=== PATIENT | female | born 1945 | race Caucasian/White ===

== ENCOUNTER → 2016-10-08 | Outpatient (CLI) | payer MEDICARE, OTHER | END | disposition home or self-care (01) | LOC: LABPAT 12:03 | PROVIDERS: ATTEND Orthopaedic Surgery | DX: Z01.810 Encounter for preprocedural cardiovascular examination (principal) | CPT/HCPCS: 93005 ==

== ENCOUNTER 2016-10-15 10:46 | Day surgery (SDC) | payer MEDICARE, OTHER ==
[2016-10-07 12:29] VITALS: BMI 46.8
--- NOTE | 2016-10-14 17:50 | HP ---
HISTORY AND PHYSICAL DATE OF SURGERY: 10/15/2016 Deisi Salazar is a 71-year-old patient seen with symptomatic left middle finger trigger finger. We discussed options for treatment. She elected to proceed with release A1 kia, left middle finger. Consent was obtained. PAST MEDICAL HISTORY: Hypertension. PAST SURGICAL HISTORY: 1. Hand surgery. 2. Herniorrhaphy. 3. Knee arthroscopy. 4. Lap band surgery. DAILY MEDICATIONS: Lisinopril. ALLERGIES: NONE. SOCIAL HISTORY: Patient denies current tobacco use. PHYSICAL EVALUATION OF THE LEFT HAND: There is tenderness noted at the A1 kia of the left middle finger. There is a nodule at the A1 kia of the left middle finger. There is clicking and catching of that left middle finger. No tenderness along the A1 kia areas of the remaining digits. Distal neurovascular exam is intact. RADIOGRAPHS: Radiographs which were obtained of her left hand revealed some osteoarthritic changes. IMPRESSION: Left middle finger trigger finger. PLAN: Release A1 kia, left middle finger. MMODL / IJN: [id number] /
[~2016-10-15 10:46] MED LIST: DEXAMETHASONE SOD PHOSPHATE 10 MG/ML 1 ML VIAL IV ONE; HYDROmorphone 1 MG/ML 1 ML SYRINGE IVP PRN; LACTATED RINGERS 1,000 ML IV SCH; LIDOCAINE 1% 20 ML VIAL (10MG/ML) FOR IV START INTRADERMA PRN; MIDAZOLAM 2 MG/2 ML VIAL IV PRN; ONDANSETRON 4 MG/2 ML VIAL IVP ONE; SCOPOLAMINE 1.5MG/72HR PATCH TRANSDERM ONE; ceFAZolin 2 GM in SODIUM CHLORIDE 0.9% 100 ML IVPB ONE
[2016-10-15 11:26] VITALS: TEMP 97.6
[2016-10-15] MEDS ORDERED: BUPIVACAINE (PF) 0.25% 30 ML VIAL SQ ONE ×2 (13:05)
[2016-10-15] MEDS ORDERED: fentaNYL (PF) 50 MCG/ML 2 ML AMP ONE (13:15)
[2016-10-15] MEDS ORDERED: MIDAZOLAM 2 MG/2 ML VIAL ONE (13:15)
[2016-10-15] MEDS ORDERED: PROPOFOL 10 MG/ML 20 ML VIAL IV ONE (13:15)
--- NOTE | 2016-10-15 13:44 | P.OP ---
Date of Procedure: 10/15/16 Preoperative Diagnosis: Left middle finger trigger finger Postoperative Diagnosis: Same Procedure(s) Performed: Release A1 kia left middle finger Implants: None Anesthesia: MAC, local Surgeon: Keegan Duran Estimated Blood Loss (ml): 0 Pathology: none sent Condition: stable Disposition: PACU Indications for Procedure: 71-year-old patient seen with a symptomatic left middle finger trigger finger. After treatment options discussed, she elected to proceed with surgical release. Operative Findings: See description of procedure Description of Procedure: Patient was taken to the operative suite. Patient underwent IV sedation by the department of anesthesia. A well-padded tourniquet was placed proximal left upper extremity. Left upper extremity was prepped and draped in the normal sterile orthopedic fashion. The patient received preoperative IV antibiotics. The proposed incision site was infiltrated local analgesic. The tourniquet was insufflated to 250. I made an incision over the area of the A1 kia left middle finger. Dissection was taken down to the A1 kia. I released the A1 kia. The release was completed proximally and distally. There was complete release and good excursion of the tendon with no impingement. The skin margins were proximal nylon suture. Sterile dressings were applied. The tourniquet was released with immediate capillary refill noted of all digits and hand. The patient was then awakened and transferred to recovery in stable condition.
[2016-10-15 14:06] VITALS: BP 128/79; PULSE 67; RESP 18
== END 2016-10-15 14:30 | disposition home or self-care (01) ==
LOC: OR 10:46
PROVIDERS: ATTEND Orthopaedic Surgery
DX: M65.332 Trigger finger, left middle finger (principal); M19.042 Primary osteoarthritis, left hand; I10 Essential (primary) hypertension; N39.3 Stress incontinence (female) (male); Z98.84 Bariatric surgery status; Z79.899 Other long term (current) drug therapy; Z79.82 Long term (current) use of aspirin; Z88.2 Allergy status to sulfonamides
CPT/HCPCS: 26055; J2250; J1100; J0690; J2405; J3010; J2704

== ENCOUNTER → 2016-10-19 | Outpatient (CLI) | payer MEDICARE, OTHER ==
--- NOTE | 2016-10-21 08:43 | MM ---
Reason for exam: screening (asymptomatic). Last mammogram was performed 1 year and 5 months ago. History: Patient is postmenopausal and history of other cancer. Physical Findings: A clinical breast exam by your physician is recommended on an annual basis and results should be correlated with mammographic findings. MG 3D Screening Mammo W/Cad Bilateral CC and MLO view(s) were taken. Prior study comparison: May 17, 2015, bilateral MG screening mammo w CAD. October 20, 2012, bilateral digital screening mammo w/CAD. There are scattered fibroglandular densities. Finding: There are typically benign round, linear calcifications in both breasts. There is no discrete abnormality. Benign axillary lymph nodes bilaterally. ASSESSMENT: Benign, BI-RAD 2 RECOMMENDATION: Routine screening mammogram of both breasts in 1 year.
== END | disposition home or self-care (01) ==
LOC: RADMAMWWP 10:49
PROVIDERS: ATTEND Family Medicine
DX: Z12.31 Encounter for screening mammogram for malignant neoplasm of breast (principal)
CPT/HCPCS: 77063; G0202

== ENCOUNTER → 2017-06-23 | Outpatient (CLI) | payer MEDICARE, OTHER | END | disposition home or self-care (01) | LOC: RADMRIMAIN 09:34 | PROVIDERS: ATTEND Hospitalist | DX: Z53.9 Procedure and treatment not carried out, unspecified reason (principal) ==

== ENCOUNTER 2017-07-22 06:23 | Day surgery (SDC) | payer MEDICARE, OTHER ==
[2017-07-19 13:11] VITALS: BMI 49.2
[~2017-07-22 06:23] MED LIST changes: +ALPRAZolam 0.25 MG TAB PO PRN; +ALPRAZolam 0.5 MG TAB PO PRN; +ASPIRIN 325 MG TAB PO STA; +ATORVASTATIN 80 MG TAB PO STA; -DEXAMETHASONE SOD PHOSPHATE 10 MG/ML 1 ML VIAL IV ONE; -HYDROmorphone 1 MG/ML 1 ML SYRINGE IVP PRN; -LACTATED RINGERS 1,000 ML IV SCH; -LIDOCAINE 1% 20 ML VIAL (10MG/ML) FOR IV START INTRADERMA PRN; -MIDAZOLAM 2 MG/2 ML VIAL IV PRN; +NITROGLYCERIN SL TABS 0.4 MG TAB SUBLINGUAL PRN; -ONDANSETRON 4 MG/2 ML VIAL IVP ONE; -SCOPOLAMINE 1.5MG/72HR PATCH TRANSDERM ONE; +SODIUM CHLORIDE 0.9% 1,000 ML in EMPTY BAG 1 BAG IV ONE; -ceFAZolin 2 GM in SODIUM CHLORIDE 0.9% 100 ML IVPB ONE
[2017-07-22 07:19] VITALS: PULSE 70; TEMP 97.9
[2017-07-22 07:21] LABS: Anisocytosis Slight; Basophils % (A) 1 %; Eosinophils # (A) 0.2 k/uL (0-0.7); Eosinophils % (A) 3 %; HCT 44.8 % (34.0-46.0); HGB 14.2 gm/dL (11.4-16.0); Hypochromasia Slight; Lymphocytes # (A) 1.1 k/uL (1.0-4.8); Lymphocytes % (A) 15 %; MCHC 31.7 g/dL (31.0-37.0); MCV 85.2 fL (80.0-100.0); Mean Platelet Volume 8.4; Monocytes # (A) 0.4 k/uL (0-1.0); Monocytes % (A) 6 %; Neutrophils # (A) 5.3 k/uL (1.3-7.7); Neutrophils % (A) 74 %; Platelet Count 178 k/uL (150-450); RBC 5.26 m/uL (3.80-5.40); RDW 17.2 % (11.5-15.5); WBC 7.2 k/uL (3.8-10.6)
[2017-07-22 07:38] LABS: Calcium 10.1 mg/dL (8.4-10.2); Potassium 4.5 mmol/L (3.5-5.1)
[2017-07-22] MEDS ORDERED: MIDAZOLAM 2 MG/2 ML VIAL IV ONE (07:45)
[2017-07-22] MEDS ORDERED: LIDOCAINE 2% INJ 20 MG/ML SQ ONE (07:48)
[2017-07-22] MEDS: VERAPAMIL SYRINGE (5 MG/10 ML) INTRAARTER ONE ×2 (07:50→08:01)
[2017-07-22] MEDS ORDERED: IOPAMIDOL-370 125ML BTL INJ ONE (07:57)
[2017-07-22] MEDS ORDERED: RX INFO: IV CONTRAST WAS GIVEN 1 EACH MISC MISCELLANE PRN (08:04)
[2017-07-22] MEDS ORDERED: SODIUM CHLORIDE 0.9% 1,000 ML IV SCH (08:15)
--- NOTE | 2017-07-22 09:39 | CC ---
CARDIAC CATHETERIZATION REPORT DATE OF SERVICE: 07/22/2017 PERFORMING PHYSICIAN: Home Solis MD. PROCEDURE PERFORMED: 1. Selective right and left coronary angiogram. 2. Left heart catheterization. INDICATION: This is a pleasant 72-year-old female patient who was admitted recently to the hospital with chest discomfort and was ruled in for acute non ST elevation myocardial infarction. At that point, she was treated medically and discharged home. She was seen in the office and was experiencing intermittent episodes of chest discomfort concerning for angina. In view of that, a heart catheterization was recommended. APPROACH: Right radial artery. COMPLICATION: None. LEVEL OF SEDATION: Moderate with a sedation length of 16 minutes. PROCEDURE DESCRIPTION: After obtaining an informed consent, the patient was brought to cardiac clinical genetics laboratory chief. The right radial artery was cannulated using micropuncture technique, the micropuncture wire passed easily then I placed a 6-Ukrainian sheath in the right radial artery. After that I did selective right and left coronary angiogram using JR4 and JL3.5 catheters. Left heart catheterization was performed using 6-Ukrainian pigtail catheter. The procedure was completed without any complication. SELECTIVE CORONARY ANGIOGRAM: 1. The RCA is a large caliber vessel and it is a dominant vessel. The RCA is angiographically normal. 2. The left main is angiographically normal. It bifurcates into left circumflex, ramus intermedius, and left anterior descending artery. 3. The left circumflex is a large caliber vessel. It is a nondominant vessel. The left circumflex system is angiographically normal. The left circumflex gives rise into 3 obtuse marginal branches, they appear to be angiographically normal. 4. The ramus intermedius is a large caliber vessel and seems to be angiographically normal. 5. The LAD: The proximal LAD is angiographically normal. The mid LAD is normal and gives rise into a medium-sized diagonal branch which seems to be angiographically normal and the LAD distally is angiographically normal as well. HEMODYNAMICS: The left ventricular end-diastolic pressure was 16 mmHg and no gradient was identified across the aortic valve. CONCLUSION: 1. Normal coronary angiogram. 2. Normal left ventricular end-diastolic pressure. POSTPROCEDURE MANAGEMENT: Maximize medical treatment and follow up with the patient. MMODL / IJN: [id number] /
--- NOTE | 2017-07-22 09:45 | LTR ---
July 22, 2017 Solitario Price MD RE: Deisi Salazar Dear Dr. Price: Ms. Deisi Salazar underwent a heart catheterization earlier today at [facility] and that revealed normal coronaries. I want to thank you for allowing me to participate in her care. Please do not hesitate to call if you have any question or concern. Sincerely, JOHANNA / MARJANN: [id number] /
[2017-07-22 15:26] VITALS: BP 120/74; RESP 20
== END 2017-07-22 13:15 | disposition home or self-care (01) ==
LOC: CATHCVL 06:23
PROVIDERS: ATTEND Internal Medicine Interventional Cardiology
DX: I21.4 Non-ST elevation (NSTEMI) myocardial infarction (principal); E78.5 Hyperlipidemia, unspecified; E78.00 Pure hypercholesterolemia, unspecified; I10 Essential (primary) hypertension; Z88.2 Allergy status to sulfonamides; E66.3 Overweight; Z68.43 Body mass index [BMI] 50.0-59.9, adult; Z79.899 Other long term (current) drug therapy
CPT/HCPCS: 93458; 80048; 85025; C1769; C1894; J2001; J2250; J1644; Q9967

== ENCOUNTER → 2017-11-10 | Outpatient (CLI) | payer MEDICARE, OTHER ==
--- NOTE | 2017-11-11 12:42 | MM ---
Reason for exam: screening (asymptomatic). Last mammogram was performed 1 year and 1 month ago. History: Patient is postmenopausal and history of other cancer. Physical Findings: A clinical breast exam by your physician is recommended on an annual basis and results should be correlated with mammographic findings. MG 3D Screening Mammo W/Cad Bilateral CC and MLO view(s) were taken. Prior study comparison: October 19, 2016, bilateral MG 3d screening mammo w/cad. May 17, 2015, bilateral MG screening mammo w CAD. The breast tissue is almost entirely fat. No significant changes when compared with prior studies. ASSESSMENT: Benign, BI-RAD 2 RECOMMENDATION: Routine screening mammogram of both breasts in 1 year.
== END | disposition home or self-care (01) ==
LOC: RADMAMWWP 09:47
PROVIDERS: ATTEND Family Medicine
DX: Z12.31 Encounter for screening mammogram for malignant neoplasm of breast (principal)
CPT/HCPCS: 77063; 77067

== ENCOUNTER → 2018-11-21 | Outpatient (CLI) | payer MEDICARE, OTHER ==
--- NOTE | 2018-11-21 15:20 | US ---
EXAMINATION TYPE: US carotid duplex BILAT DATE OF EXAM: 11/21/2018 COMPARISON: NONE CLINICAL HISTORY: R09.89 Carotid Bruit. MD heard bruit on physical exam per pt. EXAM MEASUREMENTS: RIGHT: Peak Systolic Velocity (PSV) cm/sec ----- Right CCA: 45.8 ----- Right ICA: 81.1 ----- Right ECA: 65.6 ICA/CCA ratio: 1.8 RIGHT: End Diastole cm/sec ----- Right CCA: 16.1 ----- Right ICA: 29.3 ----- Right ECA: 18.3 LEFT: Peak Systolic Velocity (PSV) cm/sec ----- Left CCA: 68.9 ----- Left ICA: 123.4 ----- Left ECA: 74.3 ICA/CCA ratio: 1.8 LEFT: End Diastole cm/sec ----- Left CCA: 24.9 ----- Left ICA: 58.4 ----- Left ECA: 10.6 VERTEBRALS (direction of flow): Right Vertebral: Antegrade Left Vertebral: Antegrade Rhythm: Arrhythmia Very tortuous Right CCA proximally. Very tortuous Left ICA. Increased velocities noted at tortuositie s only. Multiple thyroid nodules found incidentally. IMPRESSION: 1. Mild degree of grayscale atheromatous plaquing with no sonographically evident hemodynamically si gnificant stenosis within either visualized carotid arterial system. 2. Incidentally noted thyroid nodules, partially visualized and partially evaluated with thyroid ultr asound is recommended for further evaluation. Criteria for Assigning % of Stenosis / Diameter reduction (Estimation based on the indirect measurements of the internal carotid artery velocities (ICA PSV). 1. Normal (no stenosis)=ICA PSV < 125 cm/s: ratio < 2.0: ICA EDV<40 cm/s. 2. Less than 50% stenosis=ICA PSV < 125 cm/s: ratio < 2.0: ICA EDV<40 cm/s. 3. 50 to 69% stenosis=ICA PSV of 125 to 230 cm/s: ration 2.0 ? 4.0: ICA EDV 40-100 cm/s. 4. Greater than 70% stenosis to near occlusion= ICA PSV > 230 cm/s: ratio > 4.0: ICA EDV > 100 cm/s. 5. Near occlusion= ICA PSV velocities may be low or undetectable: variable ratio and ICA EDV. 6. Total occlusion=unable to detect flow.
== END | disposition home or self-care (01) ==
LOC: RADUSWWP 14:05
PROVIDERS: ATTEND Family Medicine
DX: I65.23 Occlusion and stenosis of bilateral carotid arteries (principal)
CPT/HCPCS: 93880

== ENCOUNTER → 2018-12-30 | Outpatient (CLI) | payer MEDICARE, OTHER ==
--- NOTE | 2018-12-31 15:58 | US ---
EXAMINATION TYPE: US thyroid st tissue head/neck DATE OF EXAM: 12/30/2018 COMPARISON: Carotid ultrasound 11/21/2018 CLINICAL HISTORY: 73-year-old female E04.1 Thyroid nodule. Thyroid nodule visualized on carotid study TECHNIQUE: Multiple sonographic images of the thyroid gland are obtained. FINDINGS: GLAND SIZE: Right Lobe: 4.2 x 2.0 x 1.9 cm Overall Parenchyma: Diffusely heterogeneous Left Lobe: 3.9 x 1.7 x 1.6 cm Overall Parenchyma: Diffusely heterogeneous Isthmus Thickness: 0.4 cm NODULES RIGHT: Diffuse heterogeneous gland with multiple subcentimeter nodules. # of nodules measured on rig ht: 1 1. 1.8 X 1.3 x 1.4 cm heterogeneous mixed, primarily solid nodule at the mid/lateral pole with well -defined margins; This nodule is wider than tall and shows intranodular vascularity. Prior size: 1.7 cm seen on carotid scan LEFT: Diffuse heterogeneous gland with multiple subcentimeter nodules. # of nodules measured on le ft: 1 1. 1.4 X 1.0 x 1.5 cm isoechoic solid nodule with central cystic component with well-defined margin s; This nodule is wider than tall and shows intranodular vascularity. Prior size: No prior [employer] Work[employer] notes: Bilateral neck scanned, no evidence of lymphadenopathy. Innumerable nodules bilat erally, largest one on each lobe measured. IMPRESSION: 1. Correlate for multinodular goiter. 2. One dominant, primarily solid nodule on each side measuring up to 1.8 cm on the right and 1.5 cm o n the left. Follow-up can be performed.
== END | disposition home or self-care (01) ==
LOC: RADUSWWP 15:16
PROVIDERS: ATTEND Family Medicine
DX: E04.1 Nontoxic single thyroid nodule (principal)
CPT/HCPCS: 76536

== ENCOUNTER → 2019-02-13 | Outpatient (CLI) | payer MEDICARE, OTHER ==
--- NOTE | 2019-02-14 09:12 | MM ---
Reason for exam: screening (asymptomatic). Last mammogram was performed 1 year and 3 months ago. History: Patient is postmenopausal and has history of other cancer at age 33. Physical Findings: A clinical breast exam by your physician is recommended on an annual basis and results should be correlated with mammographic findings. MG 3D Screening Mammo W/Cad Bilateral CC, MLO, and XCCL view(s) were taken. Prior study comparison: November 10, 2017, bilateral MG 3d screening mammo w/cad. October 19, 2016, bilateral MG 3d screening mammo w/cad. There are scattered fibroglandular densities. Benign appearing bilateral calcifications. No suspicious abnormality. No significant changes when compared with prior studies. ASSESSMENT: Benign, BI-RAD 2 RECOMMENDATION: Routine screening mammogram of both breasts in 1 year.
== END | disposition home or self-care (01) ==
LOC: RADMAMWWP 10:36
PROVIDERS: ATTEND Family Medicine
DX: Z12.31 Encounter for screening mammogram for malignant neoplasm of breast (principal)
CPT/HCPCS: 77063; 77067

== ENCOUNTER → 2019-07-17 | Outpatient (CLI) | payer MEDICARE, OTHER ==
--- NOTE | 2019-07-17 15:16 | US ---
EXAMINATION TYPE: US thyroid st tissue head/neck DATE OF EXAM: 07/17/2019 COMPARISON: 12/30/2018 thyroid ultrasound. CLINICAL HISTORY: E04.1 nontoxic single thyroid nodule. GLAND SIZE: Right Lobe: 4.1 x 1.9 x 1.9 cm Overall Parenchyma: heterogenous Left Lobe: 4.7 x 1.1 x 1.8 cm Overall Parenchyma: heterogeneous Isthmus Thickness: 0.2 cm NODULES 1. Right: Diffuse heterogeneous gland with multiple subcentimeter nodules. Number of nodules measured on right 1 1. 1.7 X 1.4 x 1.4 cm heterogeneous mixed, primarily solid nodule at the mid/lateral pole with well-d efined margins; This nodule is wider than tall and shows intranodular vascularity. Prior size: 1.8 x 1.3 1.4cm LEFT: Diffuse heterogeneous gland with multiple subcentimeter nodules. # of nodules measured on left: 1 1. 1.1 x 0.8 x 1.0 cm hypoechoic solid nodule with central cystic component with well-defined margin s; This nodule is wider than tall and shows intranodular vascularity. Prior size: 1.4 X 1.0 x 1.5 ISTHMUS: # of nodules measured in the isthmus: 0 Bilateral neck scanned, no evidence of lymphadenopathy. IMPRESSION: No interval growth of the bilateral thyroid nodules. Nodules appears slightly smaller shanae n 2019 in this multinodular goiter. Background echotexture is diffusely heterogenous.
== END | disposition home or self-care (01) ==
LOC: RADUSWWP 13:59
PROVIDERS: ATTEND Family Medicine
DX: R22.0 Localized swelling, mass and lump, head (principal); E04.2 Nontoxic multinodular goiter
CPT/HCPCS: 76536

== ENCOUNTER → 2020-01-05 | Outpatient (CLI) | payer MEDICARE, OTHER ==
--- NOTE | 2020-01-05 15:16 | US ---
EXAMINATION TYPE: US abdomen limited DATE OF EXAM: 01/05/2020 COMPARISON: NONE CLINICAL HISTORY: K43.9 VENTRAL HERNIA WITHOUT OBSTRUCTION OR GANGRENE. known ventral hernia near epi gastric but patient has pain within RLQ for 3-4 months, no bulging, h/o paniculectomy and radiation t o pelvis 30yrs ago Appearance of calcification at area of patients pain, largest dimension = 0.8cm, no other abnormality noted at area of pain. IMPRESSION: 1. Nonspecific isoechoic area appears to be extraperitoneal with posterior shadowing at the level of the previous incision. No hernia is identified at this level. Consider CT if additional evaluation wo uld be of benefit.
== END | disposition home or self-care (01) ==
LOC: RADUSWWP 13:18
PROVIDERS: ATTEND Family Medicine
DX: K43.9 Ventral hernia without obstruction or gangrene (principal)
CPT/HCPCS: 76705

== ENCOUNTER → 2020-01-18 | Outpatient (CLI) | payer MEDICARE, OTHER ==
--- NOTE | 2020-01-19 05:22 | CT ---
EXAMINATION TYPE: CT abdomen pelvis w con DATE OF EXAM: 01/18/2020 COMPARISON: Correlation ultrasound 01/05/2020 HISTORY: 74-year-old female R19.00 Abdominal mass, pain. TECHNIQUE: Contiguous axial scanning of the abdomen and pelvis following administration of 100 ml Iso lizzy 300 IV contrast. Delayed images through the kidneys and coronal/sagittal reconstructions perform ed. CT DLP: 2348.90 mGycm Automated exposure control for dose reduction was used. FINDINGS: Heart upper limits of normal in size without pericardial effusion. Lower subcarinal calcified lymph n ode. A couple calcified granulomas posterior left lower lobe. No pleural effusion. There is a small hiatal hernia and mild thickening of the distal esophagus. Contrast noted within the distal esophagus. Lap band device is in place. A couple calcified granulomas at the right hepatic dome. Liver enlarged at 20.0 cm. No focal lesion o therwise seen. Portal venous system is patent. No biliary ductal dilatation. Cholecystectomy clips. Indeterminate 2.3 cm nodule left adrenal gland. Right adrenal gland and pancreas appear within normal limits. Numerous calcified granulomas within the main. 2 dominant cysts within the left kidney measuring 5.0 and 4.4 cm. A couple tiny cortical hypodensities in the right kidney too small for accurate CT characterization, likely additional tiny cortical cysts in No dilated small bowel, free fluid, or free air. No mesenteric or retroperitoneal lymphadenopathy. Omental fat-containing ventral upper to mid abdominal wall hernia measuring 7.3 cm wide and 7.1 cm cr aniocaudal. Hernia occurs through a relatively narrow abdominal wall defect measuring 1.8 cm wide. Oral contrast has progressed to the mid transverse colon. There is mild stool burden. Left-sided colo parth diverticulosis greatest in the sigmoid colon. No pericolonic inflammatory change. Bladder is urine distended. Uterus surgically absent. Pelvic phleboliths. Mild pelvic floor relaxatio n. There is a multilocular cystic lesion in the left adnexa measuring 3.7 x 2.7 cm. No abnormal fluid collection in the pelvis or pelvic lymphadenopathy. Bones: Mild degenerative change at both hips and both SI joints. Advanced degenerative disc disease L 2-S1 levels. Hypertrophic facet arthropathy is also present. Nearly grade 2 anterolisthesis at L4-L5. IMPRESSION: 1. OMENTAL FAT-CONTAINING VENTRAL ABDOMINAL WALL HERNIA MEASURING 7.3 X 7.1 CM. HERNIA OCCURS THROUGH A RELATIVELY NARROW ABDOMINAL WALL DEFECT MEASURING 1.8 CM. 2. PRIOR GRANULOMATOUS DISEASE. 3. SMALL HIATAL HERNIA STATUS POST LAP BAND. MILD WALL THICKENING AT THE DISTAL ESOPHAGUS COULD REFLE CT ESOPHAGITIS. THERE IS ORAL CONTRAST ALSO WITHIN THE DISTAL ESOPHAGUS THAT COULD REFLECT ESOPHAGEAL DYSMOTILITY, TIGHT LAP BAND, OR GASTROESOPHAGEAL REFLUX. CORRELATE WITH PATIENT'S SYMPTOMS. 4. INDETERMINATE 2.3 CM LEFT ADRENAL NODULE. 6 MONTH FOLLOW-UP WITH ADRENAL MASS PROTOCOL CT RECOMMEN DED. 5. A 3.7 CM MULTILOCULAR CYSTIC LESION OF THE LEFT OVARY, ABNORMAL IN A POSTMENOPAUSAL FEMALE. PELVIC ULTRASOUND EVALUATION RECOMMENDED FOR FURTHER CHARACTERIZATION AND TO DETERMINE SUBSEQUENT FOLLOW-UP .
== END | disposition home or self-care (01) ==
LOC: RADCTMAIN 14:46
PROVIDERS: ATTEND Family Medicine
DX: K43.9 Ventral hernia without obstruction or gangrene (principal); K22.9 Disease of esophagus, unspecified; N83.202 Unspecified ovarian cyst, left side; K44.9 Diaphragmatic hernia without obstruction or gangrene; Z98.890 Other specified postprocedural states; Z78.0 Asymptomatic menopausal state; R19.00 Intra-abdominal and pelvic swelling, mass and lump, unspecified site
CPT/HCPCS: 82565; 84520; 74177; 36415; Q9967

== ENCOUNTER → 2020-01-24 | Outpatient (CLI) | payer MEDICARE, OTHER ==
--- NOTE | 2020-01-24 17:02 | US ---
EXAMINATION TYPE: US transvaginal DATE OF EXAM: 01/24/2020 COMPARISON: NONE CLINICAL HISTORY: N83.9 lesion of ovary. cysts noted within left adnexa on CT, cervical CA 42 years a go, h/o radiation treatments internally and externally, recent CT states hysterectomy but patient say s she never had uterus removed. TECHNIQUE: TV. Transvaginal sonographic images Date of LMP: 41 years ago EXAM MEASUREMENTS: Uterus: 5.4 x 2.4 x 3.3 cm Endometrial Stripe: 0.4 cm Right Ovary: not seen Left Ovary: not seen 1. Uterus: Anteverted hard to image due to habitus and bowel size 2. Endometrium: wnl 3. Right Ovary: not seen due to atrophy and overlying bowel gas 4. Left Ovary: not seen due to atrophy and bowel gas, unable to discern any cystic area within left adnexa 5. Bilateral Adnexa: bowel gas throughout pelvis 6. Posterior cul-de-sac: wnl IMPRESSION: No solid or cystic pelvic mass. Ovaries not seen.
== END | disposition home or self-care (01) ==
LOC: RADUSWWP 15:35
PROVIDERS: ATTEND Family Medicine
DX: N83.9 Noninflammatory disorder of ovary, fallopian tube and broad ligament, unspecified (principal)
CPT/HCPCS: 76830

== ENCOUNTER → 2020-03-25 | Outpatient (CLI) | payer MEDICARE, OTHER ==
[2020-03-25 22:00] LABS: Basophils # (A) 0.04 X 10*3/uL (0.00-0.10); Basophils % (A) 0.6 %; Eosinophils # (A) 0.19 X 10*3/uL (0.04-0.35); Eosinophils % (A) 2.6 %; HCT 41.7 % (37.2-46.3); HGB 12.3 g/dL (12.0-15.0); Lymphocytes # (A) 1.11 X 10*3/uL (0.90-5.00); Lymphocytes % (A) 15.4 %; MCH 23.7 pg (27.0-32.0); MCHC 29.5 g/dL (32.0-37.0); MCV 80.5 fL (80.0-97.0); Monocytes # (A) 0.57 X 10*3/uL (0.20-1.00); Monocytes % (A) 7.9 %; Neutrophils # (A) 5.26 X 10*3/uL (1.80-7.70); Neutrophils % (A) 73.2 %; Platelet Count 239 X 10*3/uL (140-440); RBC 5.18 X 10*6/uL (4.10-5.20); RDW 16.5 % (11.5-14.5); WBC 7.19 X 10*3/uL (4.50-10.00)
[2020-03-26 03:49] LABS: Ferritin 29.9 ng/mL (10.0-291.0)
[2020-03-26 04:22] LABS: % Iron Saturation 6.99 (12.00-45.00); African American GFR (CKD) 84.8 (60.0-200.0); Albumin 4.3 g/dL (3.80-4.90); Albumin/Globulin Ratio 2.05 (1.60-3.17); Anion Gap 12.7 mmol/L (4.00-12.00); Calcium 9.8 mg/dL (8.7-10.3); Carbon Dioxide 24.3 mmol/L (21.6-31.8); Globulin 2.1 g/dL (1.6-3.3); Non-African American GFR(CKD) 73.1 (60.0-200.0); Potassium 4.1 mmol/L (3.5-5.5); Total Bilirubin 0.5 mg/dL (0.2-1.2); Total Protein 6.4 g/dL (6.2-8.2)
== END | disposition home or self-care (01) ==
LOC: LABWHC1 13:48
PROVIDERS: ATTEND Family Medicine
DX: K62.5 Hemorrhage of anus and rectum (principal)
CPT/HCPCS: 36415; 80053; 82728; 83540; 83550; 85025

== ENCOUNTER → 2020-05-17 | Outpatient (CLI) | payer MEDICARE, OTHER ==
--- NOTE | 2020-05-19 14:04 | US ---
EXAMINATION TYPE: US transvaginal DATE OF EXAM: 05/17/2020 COMPARISON: CT 01/18/20, US 01/24/20 CLINICAL HISTORY: N83.202 Ovarian cyst left side. Patient had "radiation implants" inserted into uter us 40 years ago to treat cancer. States she did NOT have hysterectomy. Implants "burned up" her uteru s and damaged her bladder per pt. TECHNIQUE: Transvaginal (TV). Transvaginal sonographic images were medically necessary to better a ssess the following anatomy: Uterus Date of LMP: Post menopausal EXAM MEASUREMENTS: Uterus: 6.4 x 3.9 x 3.7 cm Endometrial Stripe: 0.3 cm Right Ovary: Not seen cm Left Ovary: Not seen cm 1. Uterus: Anteverted ? fluid collection in cervix = 1.6 x 1.3 x 0.9 cm 2. Endometrium: wnl 3. Right Ovary: Not seen 4. Left Ovary: Not seen, but left sided cystic structure = 2.7 x 2.6 x 2.1 cm with internal echos. 5. Bilateral Adnexa: wnl 6. Posterior cul-de-sac: wnl Sub optimal exam overall. Patient unable to get into usual position for TV exam. (Hips not elevated) IMPRESSION: 1. Small amount fluid may be within the cervical endometrial canal. Endometrial canal is otherwise un remarkable. 2. Examination is limited.
== END | disposition home or self-care (01) ==
LOC: RADUSWWP 13:03
PROVIDERS: ATTEND Family Medicine
DX: N83.202 Unspecified ovarian cyst, left side (principal)
CPT/HCPCS: 76830

== ENCOUNTER 2020-06-05 11:23 | Inpatient (IN) | payer MEDICARE, OTHER ==
--- NOTE | 2020-06-05 12:17 | ED ---
General Adult HPI - General Chief complaint: Recheck/Abnormal Lab/Rx Stated complaint: needs blood infusion Time Seen by Provider: 06/05/20 12:02 Source: patient, RN notes reviewed, old records reviewed Mode of arrival: ambulatory Limitations: no limitations - History of Present Illness Initial comments: 74-year-old female presenting for evaluation of anemia. 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 She's had dark stool over the past several days and believes she must have lost a significant amount of blood over the last 2 months because her hemoglobin has dropped approximately 5 g. She had outpatient lab testing and was sent to the emergency department for transfusion. Patient does report exertional dyspnea and lightheadedness. No chest pain. No abdominal pain. - Related Data Home Medications Medication Instructions Recorded Confirmed Lisinopril-Hctz 20-12.5 mg 1 each PO QAM 04/30/14 04/12/20 [Zestoretic 20-12.5] Omeprazole [PriLOSEC] 1 tab PO DAILY 04/12/20 04/12/20 Allergies Allergy/AdvReac Type Severity Reaction Status Date / Time Sulfa (Sulfonamide Allergy Anaphylaxis Verified 06/05/20 13:20 Antibiotics) Review of Systems ROS Statement: Those systems with pertinent positive or pertinent negative responses have been documented in the HPI. ROS Other: All systems not noted in ROS Statement are negative. Past Medical History Past Medical History: Blood Disorder, Cancer, GERD/Reflux, Hyperlipidemia, Hypertension, Osteoarthritis (OA) Additional Past Medical History / Comment(s): Current SOB, SEVERE IRON DEFICIENCY ANEMIA-iron infusions q 2-3 months, last July 16. Hx CERVICAL CA with radiation in 1979, heart murmur, urinary incontinence, bronchitis X3 in las t yr. History of Any Multi-Drug Resistant Organisms: None Reported Past Surgical History: Bariatric Surgery, Bladder Surgery, Hernia Repair, Joint Replacement, Orthopedic Surgery, Tonsillectomy Additional Past Surgical History / Comment(s): RT SHOULDER ROTATOR CUFF x 2, LAP BAND, RT knee replacement, BLADDER SUSP, EUGENIA carpal tunnel, EUGENIA CATARACT, PANNICULECTOMY, COLONOSCOPY, trigger finger X3-4. Past Anesthesia/Blood Transfusion Reactions: Previous Problems w/ Anesthesia Additional Past Anesthesia/Blood Transfusion Reaction / Comment(s): STATES HAD RESPIRATORY ISSUES/COUGHING POST OP, O2 SAT LOW(HAD BLOCK IN NECK) with PAST ROTATOR CUFF SX, 2ND SHOULDER SURGERY HAD NO PROBLEMS. Past Psychological History: No Psychological Hx Reported Smoking Status: Never smoker Past Alcohol Use History: None Reported Past Drug Use History: None Reported - Past Family History Mother Family Medical History: No Reported History Additional Family Medical History / Comment(s): LUNG CA General Exam Limitations: no limitations General appearance: alert, in no apparent distress Head exam: Present: atraumatic, normocephalic Eye exam: Present: normal appearance, PERRL ENT exam: Present: normal exam Neck exam: Present: normal inspection. Absent: tenderness, meningismus Respiratory exam: Present: normal lung sounds bilaterally. Absent: respiratory distress, wheezes Cardiovascular Exam: Present: regular rate, normal rhythm GI/Abdominal exam: Present: soft. Absent: distended, tenderness, guarding Extremities exam: Present: normal inspection, normal capillary refill. Absent: pedal edema, calf tenderness Neurological exam: Present: alert, oriented X3, CN II-XII intact. Absent: motor sensory deficit Psychiatric exam: Present: normal affect, normal mood Skin exam: Present: warm, dry, intact, pallor. Absent: cyanosis, diaphoretic Course Vital Signs 06/05/20 06/05/20 11:41 12:36 Temperature 98.0 F Pulse Rate 77 70 Respiratory 18 18 Rate Blood Pressure 129/72 116/49 O2 Sat by Pulse 98 100 Oximetry Medical Decision Making - Medical Decision Making 74-year-old female with suspected upper GI bleed and acute anemia. Hemoglobin 7.5 from recent of 12.3. She does have heme positive stool. She started on Protonix, transfused one unit. Her vital signs remained stable while in the emergency department. She will be admitted to Dr. Lucio with general surgery on consult. Hemoglobin will be repeated at 1800 today. - Lab Data Result diagrams: 06/05/20 12:32 06/05/20 12:32 Lab Results 06/05/20 06/05/20 06/05/20 Range/Units 12:32 12:32 12:32 WBC 7.2 (3.8-10.6) k/uL RBC 3.80 (3.80-5.40) m/uL Hgb 7.5 L (11.4-16.0) gm/dL Hct 26.9 L (34.0-46.0) % MCV 70.8 L (80.0-100.0) fL MCH 19.7 L (25.0-35.0) pg MCHC 27.9 L (31.0-37.0) g/dL RDW 16.6 H (11.5-15.5) % Plt Count 293 (150-450) k/uL MPV 8.5 Neutrophils % 73 % Lymphocytes % 15 % Monocytes % 7 % Eosinophils % 2 % Basophils % 1 % Neutrophils # 5.3 (1.3-7.7) k/uL Lymphocytes # 1.1 (1.0-4.8) k/uL Monocytes # 0.5 (0-1.0) k/uL Eosinophils # 0.1 (0-0.7) k/uL Basophils # 0.1 (0-0.2) k/uL Hypochromasia Marked Poikilocytosis Moderate Anisocytosis Slight Microcytosis Moderate PT 10.2 (9.0-12.0) sec INR 0.9 (<1.2) APTT 18.6 L (22.0-30.0) sec Sodium (137-145) mmol/L Potassium (3.5-5.1) mmol/L Chloride (98-107) mmol/L Carbon Dioxide (22-30) mmol/L Anion Gap mmol/L BUN (7-17) mg/dL Creatinine (0.52-1.04) mg/dL Est GFR (CKD-EPI)AfAm (>60 ml/min/1.73 sqM) Est GFR (CKD-EPI)NonAf (>60 ml/min/1.73 sqM) Glucose (74-99) mg/dL Calcium (8.4-10.2) mg/dL Magnesium (1.6-2.3) mg/dL Total Bilirubin (0.2-1.3) mg/dL AST (14-36) U/L ALT (4-34) U/L Alkaline Phosphatase (38-126) U/L Total Protein (6.3-8.2) g/dL Albumin (3.5-5.0) g/dL Stool Occult Blood Positive H (Negative) 06/05/20 Range/Units 12:32 WBC (3.8-10.6) k/uL RBC (3.80-5.40) m/uL Hgb (11.4-16.0) gm/dL Hct (34.0-46.0) % MCV (80.0-100.0) fL MCH (25.0-35.0) pg MCHC (31.0-37.0) g/dL RDW (11.5-15.5) % Plt Count (150-450) k/uL MPV Neutrophils % % Lymphocytes % % Monocytes % % Eosinophils % % Basophils % % Neutrophils # (1.3-7.7) k/uL Lymphocytes # (1.0-4.8) k/uL Monocytes # (0-1.0) k/uL Eosinophils # (0-0.7) k/uL Basophils # (0-0.2) k/uL Hypochromasia Poikilocytosis Anisocytosis Microcytosis PT (9.0-12.0) sec INR (<1.2) APTT (22.0-30.0) sec Sodium 137 (137-145) mmol/L Potassium 4.8 (3.5-5.1) mmol/L Chloride 105 (98-107) mmol/L Carbon Dioxide 25 (22-30) mmol/L Anion Gap 7 mmol/L BUN 24 H (7-17) mg/dL Creatinine 0.79 (0.52-1.04) mg/dL Est GFR (CKD-EPI)AfAm 87 (>60 ml/min/1.73 sqM) Est GFR (CKD-EPI)NonAf 75 (>60 ml/min/1.73 sqM) Glucose 85 (74-99) mg/dL Calcium 9.4 (8.4-10.2) mg/dL Magnesium 2.0 (1.6-2.3) mg/dL Total Bilirubin 0.6 (0.2-1.3) mg/dL AST 28 (14-36) U/L ALT 22 (4-34) U/L Alkaline Phosphatase 115 (38-126) U/L Total Protein 7.0 (6.3-8.2) g/dL Albumin 4.1 (3.5-5.0) g/dL Stool Occult Blood (Negative) Disposition Clinical Impression: Anemia, Upper GI bleed Disposition: ADMITTED IP TO THIS [facility] Condition: Stable Is patient prescribed a controlled substance at d/c from ED?: No Referrals: Nedic,Solitario, MD [Primary Care Provider] - 1-2 days Decision to Admit Reason: Admit from EC Decision Date: 06/05/20 Decision Time: 13:23
[2020-06-05 12:41] LABS: Anisocytosis Slight; Basophils # (A) 0.1 k/uL (0-0.2); Basophils % (A) 1 %; Eosinophils # (A) 0.1 k/uL (0-0.7); Eosinophils % (A) 2 %; HCT 26.9 % (34.0-46.0); HGB 7.5 gm/dL (11.4-16.0); Hypochromasia Marked; Lymphocytes # (A) 1.1 k/uL (1.0-4.8); Lymphocytes % (A) 15 %; MCH 19.7 pg (25.0-35.0); MCHC 27.9 g/dL (31.0-37.0); MCV 70.8 fL (80.0-100.0); Mean Platelet Volume 8.5; Microcytosis Moderate; Monocytes # (A) 0.5 k/uL (0-1.0); Monocytes % (A) 7 %; Neutrophils # (A) 5.3 k/uL (1.3-7.7); Neutrophils % (A) 73 %; Platelet Count 293 k/uL (150-450); Poikilocytosis Moderate; RDW 16.6 % (11.5-15.5); WBC 7.2 k/uL (3.8-10.6)
[2020-06-05 12:50] LABS: Albumin 4.1 g/dL (3.5-5.0); Calcium 9.4 mg/dL (8.4-10.2); Potassium 4.8 mmol/L (3.5-5.1); Total Bilirubin 0.6 mg/dL (0.2-1.3)
[2020-06-05 13:03] LABS: INR 0.9 (<1.2); Prothrombin Time 10.2 sec (9.0-12.0)
[2020-06-05 13:05] LABS: Partial Thromboplastin Time 18.6 sec (22.0-30.0)
[2020-06-05] MEDS ORDERED: PANTOPRAZOLE 40 MG/10 ML VIAL IVP STA (13:15)
[2020-06-05] MEDS ORDERED: NALOXONE 0.4 MG/ML 1 ML VIAL IV PRN (13:20)
[2020-06-05] MEDS: SODIUM CHLORIDE 0.9% 1,000 ML IV SCH (13:52)
[2020-06-05 19:04] LABS: Anisocytosis Slight; Basophils % (A) 1 %; Eosinophils # (A) 0.1 k/uL (0-0.7); Eosinophils % (A) 2 %; HCT 29.1 % (34.0-46.0); HGB 8.6 gm/dL (11.4-16.0); Hypochromasia Marked; Lymphocytes # (A) 1.5 k/uL (1.0-4.8); Lymphocytes % (A) 17 %; MCH 21.3 pg (25.0-35.0); MCHC 29.5 g/dL (31.0-37.0); MCV 72.3 fL (80.0-100.0); Mean Platelet Volume 7.3; Microcytosis Moderate; Monocytes # (A) 0.5 k/uL (0-1.0); Monocytes % (A) 6 %; Neutrophils # (A) 6.2 k/uL (1.3-7.7); Neutrophils % (A) 72 %; Platelet Count 260 k/uL (150-450); Poikilocytosis Moderate; RBC 4.03 m/uL (3.80-5.40); WBC 8.5 k/uL (3.8-10.6)
--- NOTE | 2020-06-05 19:51 | P.HPIM ---
History of Present Illness H&P Date: 06/05/20 Chief Complaint: Weak and tired History of presenting complaint: This is a very pleasant 74-year-old patient of Dr. Price. Chronic stable medical conditions include GERD, hypertension, hyperlipidemia, osteoarthritis. Iron deficiency anemia has received iron infusions. Urinary incontinence. Patient did undergo EGD by Dr. 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 I do not have the formal details on the EGD. Patient had gone to see her space control agent Dr. Pickard who found the patient to be rather pale. Hemoglobin was sent off. Patient has been feeling weak and tired rundown short of breath and decided to come in. Hemoglobin was found to be 7.5. Hemoglobin was 12.3 in March of this year. Unit of blood was ordered in the ER. No abdominal pain. Review of systems: GEN.: Tired EYES: None HEENT: None NECK: None RESPIRATORY: Short of breath CARDIOVASCULAR: None GASTROINTESTINAL: None GENITOURINARY: None MUSCULOSKELETAL: None LYMPHATICS: None HEMATOLOGICAL: None PSYCHIATRY: None NEUROLOGICAL: None Past medical history to include: GERD, hyperlipidemia, hypertension, osteoarthritis, iron deficiency anemia with iron infusions, cervical cancer with radiation in 1979. Urinary incontinence. Bariatric surgery including lap band. Social history: . No history of smoking or alcohol. Physical examination: VITAL SIGNS: 98, 77, 18, 1 29 x 72, 98% room air GENERAL: BMI 46.9, laying in bed, tired. EYES: [Pupils equal. Conjunctiva pale l. HEENT: External appearance of nose and ears normal, oral cavity grossly normal. NECK: JVD not raised; masses not palpable. HEART: First and second heart sounds are normal; no edema. LUNGS: Respiratory rate normal; clear to auscultation. MUSCULAR skeletal: Evidence of OA ABDOMEN: Soft, nontender, liver spleen not palpable, no masses palpable. PSYCH: Alert and oriented x3; mood and affect normal. NEUROLOGICAL: Cranial nerves grossly intact; no facial asymmetry, power and sensation grossly intact. LYMPHATICS: No lymph nodes palpable in the axilla and neck INVESTIGATIONS, reviewed in the clinical context: WBC 7.2 hemoglobin 7.5 platelets 293 potassium 4.8 creatinine 0.9 Stool occult blood positive Influenza type A, diabetic, RSV, COVID 19: Not detected Previous labs: From March 25 2020: Hemoglobin 12.3 Assessment and plan: -Acute on chronic GI bleed in a patient with known upper GI AV malformations. Patient's had recent EGD by Dr. Lorenz out of the [facility] system. Do not have access to the report. Follow H&H -Acute blood loss anemia, symptomatic Patient being transfused 1 unit of blood -Morbid obesity BMI 46.9 Weight loss measures. Patient had a bariatric surgery before. Follow-up with PCP. -GERD Continue PPI -Hyperlipidemia Diet-controlled -Essential hypertension Continue with antihypertensive. Keep a close eye on blood pressure -Primary osteoarthritis Use Tylenol when necessary -Chronic urinary stress incontinence Plan consultation made with Dr. Lorenz. Unit of blood ordered. Repeat CBC in the morning. Consult GI. Care was discussed with the patient. Past Medical History Past Medical History: Blood Disorder, Cancer, GERD/Reflux, Hyperlipidemia, Hypertension, Osteoarthritis (OA) Additional Past Medical History / Comment(s): Current SOB, SEVERE IRON DEFICIENCY ANEMIA-iron infusions q 2-3 months, last July 16. Hx CERVICAL CA with radiation in 1979, heart murmur, urinary incontinence, bronchitis X3 in last yr. History of Any Multi-Drug Resistant Organisms: None Reported Past Surgical History: Bariatric Surgery, Bladder Surgery, Hernia Repair, Joint Replacement, Orthopedic Surgery, Tonsillectomy Additional Past Surgical History / Comment(s): RT SHOULDER ROTATOR CUFF x 2, LAP BAND, RT knee replacement, BLADDER SUSP, EUGENIA carpal tunnel, EUGENIA CATARACT, PANNI CULECTOMY, COLONOSCOPY, trigger finger X3-4. Past Anesthesia/Blood Transfusion Reactions: Previous Problems w/ Anesthesia Additional Past Anesthesia/Blood Transfusion Reaction / Comment(s): STATES HAD RESPIRATORY ISSUES/COUGHING POST OP, O2 SAT LOW(HAD BLOCK IN NECK) with PAST ROTATOR CUFF SX, 2ND SHOULDER SURGERY HAD NO PROBLEMS. Past Psychological History: No Psychological Hx Reported Smoking Status: Never smoker Past Alcohol Use History: None Reported Past Drug Use History: None Reported - Past Family History Mother Family Medical History: No Reported History Additional Family Medical History / Comment(s): LUNG CA Medications and Allergies Home Medications Medication Instructions Recorded Confirmed Type Lisinopril-Hctz 20-12.5 mg 1 tab PO DAILY 04/30/14 06/05/20 History [Zestoretic 20-12.5] Omeprazole [PriLOSEC] 20 mg PO DAILY 04/12/20 06/05/20 History Allergies Allergy/AdvReac Type Severity Reaction Status Date / Time Sulfa (Sulfonamide Allergy Anaphylaxis Verified 06/05/20 13:20 Antibiotics) Physical Exam Vitals: Vital Signs Temp Pulse Resp BP Pulse Ox 06/05/20 18:28 98.1 F 68 18 116/68 99 06/05/20 16:55 98.3 F 68 18 101/21 98 06/05/20 15:56 98.2 F 65 18 106/68 98 06/05/20 15:26 98.3 F 72 18 112/57 100 06/05/20 15:16 98.1 F 69 16 108/54 98 06/05/20 13:56 69 18 118/67 100 06/05/20 12:36 70 18 116/49 100 06/05/20 11:41 98.0 F 77 18 129/72 98 Intake and Output 06/05/20 06/05/20 06/05/20 06:59 14:59 22:59 Intake Total 310 Balance 310 Intake: Blood Product 310 Rc As-1 Unit 310 [id number] Other: Weight 108.862 kg Results CBC & Chem 7: 06/05/20 18:29 06/05/20 12:32 Labs: Abnormal Lab Results - Last 24 Hours (Table) 06/05/20 06/05/20 06/05/20 Range/Units 12:15 12:32 12:32 Hgb 7.5 L (11.4-16.0) gm/dL Hct 26.9 L (34.0-46.0) % MCV 70.8 L (80.0-100.0) fL MCH 19.7 L (25.0-35.0) pg MCHC 27.9 L (31.0-37.0) g/dL RDW 16.6 H (11.5-15.5) % APTT (22.0-30.0) sec BUN (7-17) mg/dL Stool Occult Blood Positive H (Negative) Crossmatch See Detail 06/05/20 06/05/20 06/05/20 Range/Units 12:32 12:32 18:29 Hgb 8.6 L (11.4-16.0) gm/dL Hct 29.1 L (34.0-46.0) % MCV 72.3 L (80.0-100.0) fL MCH 21.3 L (25.0-35.0) pg MCHC 29.5 L (31.0-37.0) g/dL RDW 18.0 H (11.5-15.5) % APTT 18.6 L (22.0-30.0) sec BUN 24 H (7-17) mg/dL Stool Occult Blood (Negative) Crossmatch
[2020-06-05] MEDS: PANTOPRAZOLE 40 MG/10 ML VIAL IVP SCH (19:56)
[2020-06-06] MEDS ORDERED: ACETAMINOPHEN TAB 325 MG TAB PO PRN (00:51)
[2020-06-06] MEDS ORDERED: PANTOPRAZOLE 40 MG TABLET PO SCH (07:30)
[2020-06-06 08:27] LABS: Anisocytosis Slight; Basophils % (A) 1 %; Eosinophils # (A) 0.2 k/uL (0-0.7); Eosinophils % (A) 3 %; HCT 26.1 % (34.0-46.0); HGB 7.6 gm/dL (11.4-16.0); Hypochromasia Marked; Lymphocytes # (A) 0.8 k/uL (1.0-4.8); Lymphocytes % (A) 18 %; MCH 21.1 pg (25.0-35.0); MCHC 29.3 g/dL (31.0-37.0); MCV 72.2 fL (80.0-100.0); Mean Platelet Volume 7.9; Microcytosis Moderate; Monocytes # (A) 0.3 k/uL (0-1.0); Monocytes % (A) 7 %; Neutrophils # (A) 3.3 k/uL (1.3-7.7); Neutrophils % (A) 70 %; Platelet Count 231 k/uL (150-450); Poikilocytosis Moderate; RBC 3.61 m/uL (3.80-5.40); RDW 18.3 % (11.5-15.5); WBC 4.8 k/uL (3.8-10.6)
[2020-06-06] MEDS: PANTOPRAZOLE 40 MG/10 ML VIAL IVP SCH ×2 (08:53→21:13)
[2020-06-06] MEDS: LISINOPRIL-HCTZ 20-12.5 MG 1 EACH TAB PO SCH (10:59)
[2020-06-06] MEDS: SODIUM CHLORIDE 0.9% 1,000 ML IV SCH (11:45)
[2020-06-06] MEDS ORDERED: LIDOCAINE 1% INJ 10MG/ML (20 ML MDV) ONE (13:32)
[2020-06-06] MEDS ORDERED: PROPOFOL 10 MG/ML 20 ML VIAL IV ONE (13:32)
[2020-06-06] MEDS ORDERED: IV FLUID CONTINUATION 1,000 ML IV ONE (13:34)
[2020-06-06] MEDS ORDERED: EPINEPHrine 10 ML SYRINGE (0.1 MG/ML) MISCELLANE ONE (13:50)
--- NOTE | 2020-06-06 13:59 | P.PCN ---
Date of Procedure: 06/06/20 Procedure(s) Performed: BRIEF HISTORY: Patient is a [id number]-year-old, pleasant, white female admitted the hospital with intermittent black tarry stools for the last few months duration. Patient has recurrent iron deficiency anemia and has been on iron infusions for almost 2 years. Previously had an upper endoscopy by Dr. Lorenz about 2 years ago at [facility] and was diagnosed with duodenal AVM. During this hospital admission hemoglobin was 7.6 and dropped to 6 g per dl receiving 1 unit of PRBC transition.. PROCEDURE PERFORMED: Esophagogastroduodenoscopy with injection epinephrine and cautery using a gold probe. PREOPERATIVE DIAGNOSIS: Acute upper GI bleed/anemia. IV sedation per anesthesia. PROCEDURE: After informed consent was obtained, the patient was brought into the endoscopy unit. IV sedation was administered by Anesthesia under continuous monitoring. Initially the Olympus GIF-140 video endoscope was inserted into the mouth. Esophagus intubated without any difficulty. It was gradually advanced into the stomach and duodenum and carefully examined. The bulb and the second part of the duodenum appeared normal. The scope was advanced into the third part of the duodenum there was a 5 mm arterial venous malformation with active oozing identified. At this time I injected epinephrine and 3 mL was injected with good hemostasis. Following this there was cauterized using a gold probe. There was another small AVM noted in the bulb of the duodenum that was also cauterized. The scope at this time was withdrawn to the stomach, adequately insufflated with air, and upon careful examination, mucosa of the antrum, body, cardia and the fundus appeared normal. The scope was then withdrawn into the esophagus. The GE junction was located at 39 cm from the incisors. Small sliding type hiatal hernia noted. The esophagus appeared normal. There were no erosions or ulcerations seen and the patient tolerated the procedure well. IMPRESSION: 1. 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 2. Small hiatal hernia. RECOMMENDATIONS: The findings of this examination were discussed with the patient as well as a family. She'll be on a clear liquid diet today. Monitor CBC daily. Patient started complaining of abdominal pain and abdominal distention post EGD. She will be sent to recovery and abdominal x-rays will be ordered.
[2020-06-06] MEDS ORDERED: ONDANSETRON 4 MG/2 ML VIAL IVP ONE (14:05)
[2020-06-06] MEDS ORDERED: diphenhydrAMINE 50 MG/ML 1 ML VIAL IVP ONE (14:33)
--- NOTE | 2020-06-06 14:41 | CONS ---
CONSULTATION DATE OF DICTATION: June 06, 2020 REASON FOR CONSULTATION: Recurrent iron deficiency anemia/intermittent black tarry stools and anemia. HISTORY OF PRESENT ILLNESS: The patient is a 74-year-old pleasant white female with history of hypertension, hyperlipidemia, who came to the emergency room because of fatigue, weakness, and some shortness of breath. She came to the emergency room and was noted to have a hemoglobin of 7.5 g/dL. Apparently, her hemoglobin in March of this year was 12.3 g/dL. She received a unit of PRBC transfusion and repeat hemoglobin is still 7.5 g/dL. The patient has been having intermittent black tarry stools on and off for the last several months. The last was about 2 days ago. She states that she had recurrent iron deficiency anemia and sees Dr. Howard and receives IV iron infusions almost every 3 months on outpatient basis. She did have multiple endoscopies by Dr. Hyatt and according to the patient, the last one was done by Dr. Hyatt 2 years ago at [facility] and was noted to have a duodenal arteriovenous malformation. Records are not available at the time of this dictation. The patient denies any abdominal pain. No nausea, no vomiting. Last 2 bowel movements were brown in color. PAST MEDICAL HISTORY: Significant for GERD, hypertension, hyperlipidemia, degenerative joint disease, recurrent iron deficiency anemia. PAST SURGICAL HISTORY: Bariatric surgery with lap band done by Dr. Hyatt, history of EGD 2 years ago, colonoscopy was about 4 or 5 years ago, history of bladder surgery, tonsillectomy, right shoulder cuff repair, bilateral cataract surgery, panniculectomy, right knee replacement. MEDICATIONS: Medications at home include lisinopril, Zestoretic, Prilosec. ALLERGIES: SULFA. SOCIAL HISTORY: No smoking. No alcohol use. FAMILY HISTORY: Unremarkable. Mother has lung cancer. REVIEW OF SYSTEMS: CARDIOPULMONARY: No chest pain or shortness of breath. GENITOURINARY: No dysuria or hematuria. MUSCULOSKELETAL: Unremarkable. SKIN: Unremarkable. ENDOCRINE: Unremarkable. PSYCHIATRIC: Unremarkable. NEUROLOGY: Unremarkable. ENT/VISION: Unremarkable. CONSTITUTIONAL: No recent weight loss. No fever, chills, night sweats. HEMATOLOGY: Recurrent iron deficiency anemia. ENDOCRINE: Unremarkable. PHYSICAL EXAMINATION: She appeared comfortable, no apparent distress. Vital signs are stable. Blood pressure is 133/86, pulse rate 71, temperature 98.7. HEENT EXAMINATION: Unremarkable. Conjunctivae pink. Sclerae anicteric. Oral cavity no lesions. NECK: No JVD or lymph node enlargement. CHEST: Was clear to auscultation. HEART: Regular rate and rhythm. ABDOMEN: Was slightly obese, was slightly distended but it was nontender. No organomegaly. EXTREMITIES: No pedal edema. SKIN: No rashes. NEUROLOGIC: Alert and oriented x3. No focal deficits. LABS: WBC 7.2, hemoglobin 7.5, platelets 293. BUN 24, creatinine 0.79. Stool occult blood was positive. Status post one unit of PRBC transfusion and repeat hemoglobin this morning is 7.6. IMPRESSION: 1. This is a lady with history of recurrent iron deficiency anemia, presents to the hospital with fatigue, weakness, and black tarry stools for the last 2 days duration. Her hemoglobin was 7.5 g/dL, status post one unit of PRBC transfusion and this morning hemoglobin is still 7.6 g/dL. She states that she had an upper endoscopy by Dr. Hyatt 2 years ago and was diagnosed with duodenal arteriovenous malformation at [facility]. Records are not available at the time of this dictation. Her last colonoscopy was about 4 years ago and according to her was within normal limits. 2. History of hypertension. 3. History of hyperlipidemia. RECOMMENDATION: We will proceed with EGD today and if negative, will consider a small bowel capsule endoscopy and possible colonoscopy during this hospitalization. In the meantime, monitor CBC daily. Continue with Protonix 40 mg q.12 hours and further recommendations will follow based on the upper endoscopy results. Thank you for this consultation. MMODL / IJN: [id number] /
--- NOTE | 2020-06-06 15:18 | XR ---
EXAMINATION TYPE: XR abdomen acute w cxr DATE OF EXAM: 06/06/2020 COMPARISON: NONE HISTORY: Pain TECHNIQUE: Supine, upright, and left side down lateral decubitus views of the abdomen are obtained. FINDINGS: Stomach is distended and there are dilated small bowel loops. Catheter seen overlying the a bdomen. Hypertrophic change of the spine. Subsegmental changes in left lung most typical of atelectas is. Arthropathy of the shoulders. No pneumothorax. Chronic rib deformity in the right. Air is seen di stally within the rectum. IMPRESSION: 1. Dilated stomach and small bowel with air seen to the level of the rectum may be related to EGD pro cedure or ileus correlate clinically. No diagnostic evidence of free air. If strong clinical suspicio n consider CAT scan.
--- NOTE | 2020-06-06 17:46 | P.GSCN ---
History of Present Illness Consult date: 06/06/20 Reason for Consult: GI bleed History of present illness: 74-year-old female known to our service. Patient with history of intermittent intestinal bleeding. Was found to have a dual for a lesion on prior upper endoscopy. Came in to the hospital with profound weakness. Patient was found to be anemic. She has been given blood. She was having dark stools over the last several days. GI went ahead and did a EGD today. 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 Feels well currently. Did have some pain initially after the upper endoscopy. Patient history includes prior lap band. Review of Systems The patient denies any acute changes in vision or hearing, no dysphagia or odynophagia, no chest pain or shortness of breath, no dysuria or hematuria, no headache, no runny nose, no rectal bleeding, no unexplained weight loss Past Medical History Past Medical History: Blood Disorder, Cancer, GERD/Reflux, Hyperlipidemia, Hypertension, Osteoarthritis (OA) Additional Past Medical History / Comment(s): Current SOB, SEVERE IRON DEFICIENCY ANEMIA-iron infusions q 2-3 months, last July 16. Hx CERVICAL CA with radiation in 1979, heart murmur, urinary incontinence, bronchitis X3 in l ast yr. History of Any Multi-Drug Resistant Organisms: None Reported Past Surgical History: Bariatric Surgery, Bladder Surgery, Hernia Repair, Joint Replacement, Orthopedic Surgery, Tonsillectomy Additional Past Surgical History / Comment(s): RT SHOULDER ROTATOR CUFF x 2, LAP BAND, RT knee replacement, BLADDER SUSP, EUGENIA carpal tunnel, EUGENIA CATARACT, PANNICULECTOMY, COLONOSCOPY, trigger finger X3-4. Past Anesthesia/Blood Transfusion Reactions: Previous Problems w/ Anesthesia Additional Past Anesthesia/Blood Transfusion Reaction / Comm: STATES HAD RESPIRATORY ISSUES/COUGHING POST OP, O2 SAT LOW(HAD BLOCK IN NECK) with PAST ROTATOR CUFF SX, 2ND SHOULDER SURGERY HAD NO PROBLEMS. Past Psychological History: No Psychological Hx Reported Smoking Status: Never smoker Past Alcohol Use History: None Reported Past Drug Use History: None Reported - Past Family History Mother Family Medical History: No Reported History Additional Family Medical History / Comment(s): LUNG CA Medications and Allergies Home Medications Medication Instructions Recorded Confirmed Type Lisinopril-Hctz 20-12.5 mg 1 tab PO DAILY 04/30/14 06/05/20 History [Zestoretic 20-12.5] Omeprazole [PriLOSEC] 20 mg PO DAILY 04/12/20 06/05/20 History Allergies Allergy/AdvReac Type Severity Reaction Status Date / Time Sulfa (Sulfonamide Allergy Anaphylaxis Verified 06/05/20 13:20 Antibiotics) Surgical - Exam Vital Signs Temp Pulse Resp BP Pulse Ox 98.0 F 77 18 129/72 98 06/05/20 11:41 06/05/20 11:41 06/05/20 11:41 06/05/20 11:41 06/05/20 11:41 Physical exam: General: Well-developed, well-nourished HEENT: Normocephalic, sclerae nonicteric Abdomen: Nontender, nondistended Extremities: No edema Neuro: Alert and oriented Results - Labs 06/06/20 06:48 06/05/20 12:32 Abnormal Lab Results - Last 24 Hours (Table) 06/05/20 06/05/20 06/06/20 Range/Units 12:15 18:29 06:48 RBC 3.61 L (3.80-5.40) m/uL Hgb 8.6 L 7.6 L (11.4-16.0) gm/dL Hct 29.1 L 26.1 L (34.0-46.0) % MCV 72.3 L 72.2 L (80.0-100.0) fL MCH 21.3 L 21.1 L (25.0-35.0) pg MCHC 29.5 L 29.3 L (31.0-37.0) g/dL RDW 18.0 H 18.3 H (11.5-15.5) % Lymphocytes # 0.8 L (1.0-4.8) k/uL Crossmatch See Detail Assessment and Plan (1) Upper GI bleed Narrative/Plan: Patient doing well after upper endoscopy with control of duodenal AVM bleeding by GI. Will defer dietary advancement to GI. Continue antiacids. Will follow. Current Visit: Yes Status: Acute Code(s): K92.2 - GASTROINTESTINAL HEMORRHAGE, UNSPECIFIED SNOMED Code(s): 87714646
--- NOTE | 2020-06-06 22:23 | P.PN ---
Progress Note - Text Progress Note Date: 06/06/20 Chief Complaint: Weak and tired History of presenting complaint: This is a very pleasant 74-year-old patient of Dr. Price. Chronic stable medical conditions include GERD, hypertension, hyperlipidemia, osteoarthritis. Iron deficiency anemia has received iron infusions. Urinary incontinence. Patient did undergo EGD by Dr. 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 I do not have the formal details on the EGD. Patient had gone to see her screen printing supervisor Dr. Pickard who found the patient to be rather pale. Hemoglobin was sent off. Patient has been feeling weak and tired rundown short of breath and decided to come in. Hemoglobin was found to be 7.5. Hemoglobin was 12.3 in March of this year. Unit of blood was ordered in the ER. No abdominal pain. Today: saw the patient this morning. EGD pending. Hemoglobin 7.5 after receiving 1 unit of blood. Review of systems: Was done for constitutional, cardiovascular, GI, pulmonary. relevant finding as above Active Medications Acetaminophen (Acetaminophen Tab 325 Mg Tab) 650 mg PO Q6HR PRN PRN Reason: Fever and/ or Pain Last Admin: 06/06/20 01:21 Dose: 650 mg Documented by: Lisinopril/HCTZ (Lisinopril-Hctz 20-12.5 Mg 1 Each Tab) 1 each PO DAILY [facility] Last Admin: 06/06/20 10:59 Dose: 1 each Documented by: Sodium Chloride (Saline 0.9%) 1,000 mls @ 50 mls/hr IV .Q20H [facility] Last Admin: 06/06/20 11:45 Dose: Not Given Documented by: Naloxone HCl (Naloxone 0.4 Mg/Ml 1 Ml Vial) 0.2 mg IV Q2M PRN PRN Reason: Opioid Reversal Pantoprazole Sodium (Pantoprazole 40 Mg/10 Ml Vial) 40 mg IVP BID [facility] Last Admin: 06/06/20 21:13 Dose: 40 mg Documented by: Polyethylene Glycol (Polyethylene Glycol 3350 17 Gm Powd.Pack) 17 gm PO DAILY [facility] Past medical history to include: GERD, hyperlipidemia, hypertension, osteoarthritis, iron deficiency anemia with iron infusions, cervical cancer with radiation in 1979. Urinary incontinence. Bariatric surgery including lap band. Social history: . No history of smoking or alcohol. Physical examination: VITAL SIGNS: 98.7, 71, 19, 127/73, 99% room air GENERAL: Laying in bed, comfortable EYES: [Pupils equal. Conjunctiva pale HEENT: External appearance of nose and ears normal, oral cavity grossly normal. NECK: JVD not raised; masses not palpable. HEART: First and second heart sounds are normal; no edema. LUNGS: Respiratory rate normal; clear to auscultation. MUSCULAR skeletal: Evidence of OA ABDOMEN: Soft, nontender, liver spleen not palpable, no masses palpable. PSYCH: Alert and oriented x3; mood and affect normal. INVESTIGATIONS, reviewed in the clinical context: June 06: Hemoglobin was 8.6 yesterday evening and 7.6 this morning WBC 7.2 hemoglobin 7.5 platelets 293 potassium 4.8 creatinine 0.9 Stool occult blood positive Influenza type A, diabetic, RSV, COVID 19: Not detected Previous labs: From March 25 2020: Hemoglobin 12.3 Assessment and plan: -Acute on chronic GI bleed in a patient with known upper GI AV malformations. EGD today: Bleeding AV malformation in the third part of duodenum that caught injection epinephrine followed by cautery. Using Encore Pro. With good hemostasis -Acute blood loss anemia, symptomatic transfused 1 unit of blood. Patient still symptomatic. We'll order second unit of blood -Morbid obesity BMI 46.9 Weight loss measures. Patient had a bariatric surgery before. Follow-up with PCP. -GERD Continue PPI -Hyperlipidemia Diet-controlled -Essential hypertension Continue with antihypertensive. Keep a close eye on blood pressure -Primary osteoarthritis Use Tylenol when necessary -Chronic urinary stress incontinence Follow postprocedure instructions as per Dr. Opal Dixon. H&H in the morning.
[2020-06-07 05:58] LABS: Anisocytosis Slight; Basophils % (A) 1 %; Eosinophils # (A) 0.1 k/uL (0-0.7); Eosinophils % (A) 2 %; HCT 29.3 % (34.0-46.0); Hypochromasia Marked; Lymphocytes # (A) 1.2 k/uL (1.0-4.8); Lymphocytes % (A) 18 %; MCH 22.6 pg (25.0-35.0); MCHC 30.8 g/dL (31.0-37.0); MCV 73.4 fL (80.0-100.0); Mean Platelet Volume 8.1; Microcytosis Moderate; Monocytes # (A) 0.5 k/uL (0-1.0); Monocytes % (A) 7 %; Neutrophils # (A) 4.7 k/uL (1.3-7.7); Neutrophils % (A) 70 %; Platelet Count 239 k/uL (150-450); Poikilocytosis Moderate; RDW 18.8 % (11.5-15.5); WBC 6.7 k/uL (3.8-10.6)
[2020-06-07] MEDS: SODIUM CHLORIDE 0.9% 1,000 ML IV SCH ×2 (07:49→20:38)
[2020-06-07] MEDS: LISINOPRIL-HCTZ 20-12.5 MG 1 EACH TAB PO SCH (09:10)
[2020-06-07] MEDS: polyethylene glycoL 3350 17 GM POWD.PACK PO SCH (09:11)
[2020-06-07] MEDS: PANTOPRAZOLE 40 MG/10 ML VIAL IVP SCH ×2 (09:39→20:38)
--- NOTE | 2020-06-07 10:28 | P.PN ---
Subjective Progress Note Date: 06/07/20 Principal diagnosis: ugib Patient doing well today. She had loose yellowish stools today. No rectal bleeding. Hemoglobin improved. No pain. Objective - Vital Signs Vital signs: Vital Signs Temp 98.1 F 06/07/20 07:16 Pulse 62 06/07/20 07:16 Resp 20 06/07/20 07:16 BP 102/55 06/07/20 07:16 Pulse Ox 94 L 06/07/20 07:16 Intake & Output 06/06/20 06/07/20 06/07/20 18:59 06:59 18:59 Intake Total 1400 310 Balance 1400 310 Intake: IV 800 Intake, IV Titration 600 Amount Sodium Chloride 0.9% 1, 600 000 ml @ 50 mls/hr IV . Q20H [facility] Rx#:[id number] Blood Product 0 310 Rc As-1 Unit 0 310 [id number] Other: Voiding Method Toilet Toilet Toilet # Voids 2 - Exam Abdomen: Soft, nontender, nondistended - Labs CBC & Chem 7: 06/07/20 05:34 06/05/20 12:32 Labs: Abnormal Lab Results - Last 24 Hours (Table) 06/05/20 06/07/20 Range/Units 12:15 05:34 Hgb 9.0 L (11.4-16.0) gm/dL Hct 29.3 L (34.0-46.0) % MCV 73.4 L (80.0-100.0) fL MCH 22.6 L (25.0-35.0) pg MCHC 30.8 L (31.0-37.0) g/dL RDW 18.8 H (11.5-15.5) % Crossmatch See Detail Assessment and Plan (1) Upper GI bleed Narrative/Plan: Patient doing better today. No rectal bleeding currently. Apparently there is consideration for colonoscopy during this hospitalization. If colonoscopy not performed I'm comfortable with diet being advanced at this point. No surgical intervention planned. We'll sign off. Current Visit: Yes Status: Acute Code(s): K92.2 - GASTROINTESTINAL HEMORRHAGE, UNSPECIFIED SNOMED Code(s): 72719868
--- NOTE | 2020-06-07 15:38 | P.PN ---
Subjective Progress Note Date: 06/07/20 Principal diagnosis: Recurrent iron deficiency anemia with intermittent black tarry stools Assessment 74-year-old pleasant white female who was admitted to the hospital with intermittent black tarry stools for last 2 months duration as well as iron deficiency anemia. She has been getting iron infusions for most 2 years recently had an upper endoscopy by Dr. Mccoy about 2 months [facility] was diagnosed with a duodenal AVM. Yesterday she underwent an upper endoscopy which revealed an actively bleeding duodenal arteriovenous malformation in the third part of the duodenum status post injection epinephrine followed by cautery using a cold probe with good hemostasis and a small hiatal hernia. Today's hemoglobin is stable at 9.0, initially she had no reports of any GI bleed however in the late morning she had a bowel movement which she reports was mixed with bright red blood. She is denying any abdominal pain, nausea, or vomiting. Objective - Vital Signs Vital signs: Vital Signs Temp 98.1 F 06/07/20 07:16 Pulse 62 06/07/20 07:16 Resp 20 06/07/20 07:16 BP 102/55 06/07/20 07:16 Pulse Ox 94 L 06/07/20 07:16 Intake & Output 06/06/20 06/07/20 06/07/20 18:59 06:59 18:59 Intake Total 1400 310 Balance 1400 310 Intake: IV 800 Intake, IV Titration 600 Amount Sodium Chloride 0.9% 1, 600 000 ml @ 50 mls/hr IV . Q20H [facility] Rx#:[id number] Blood Product 0 310 Rc As-1 Unit 0 310 [id number] Other: Voiding Method Toilet Toilet Toilet # Voids 2 - Exam General appearance: The patient is alert, oriented, appears in no acute distress. HET: Head is normocephalic and atraumatic. Conjunctiva pink. Sclera anicteric. Neck: Supple without lymphadenopathy. Abdomen: Soft, nontender, nondistended with bowel sounds. No guarding or rigidity. Extremities: Normal skin color and turgor. No pedal edema Skin: No rashes, no jaundice Neurological: No focal deficits. Alert and oriented 3. - Labs CBC & Chem 7: 06/07/20 05:34 06/05/20 12:32 Labs: Abnormal Lab Results - Last 24 Hours (Table) 06/05/20 06/07/20 Range/Units 12:15 05:34 Hgb 9.0 L (11.4-16.0) gm/dL Hct 29.3 L (34.0-46.0) % MCV 73.4 L (80.0-100.0) fL MCH 22.6 L (25.0-35.0) pg MCHC 30.8 L (31.0-37.0) g/dL RDW 18.8 H (11.5-15.5) % Crossmatch See Detail Assessment and Plan (1) Iron deficiency anemia Narrative/Plan: Lady with a history of recurrent iron deficiency anemia who presented to the hospital with fatigue weakness and black tarry stools for the last 2 days dura tion. Her initial hemoglobin was 7.5 status post 1 unit PRBC transfusion with a follow-up of 7.6. She states she had upper endoscopy by Dr. Ortiz approximately 2 months ago was diagnosed with duodenal AVM malformation at [facility]. Her last reported colonoscopy was 4-5 years ago according to her within normal limits. Today's hemoglobin is 9.0. She is status post upper endoscopy with findings of an actively bleeding duodenal AVM in the third part of the duodenum status post injection of epinephrine followed by cautery using cold probe ablation with good hemostasis. Current Visit: Yes Status: Acute Code(s): D50.9 - IRON DEFICIENCY ANEMIA, UNSPECIFIED SNOMED Code(s): 82678496 (2) Upper GI bleed Current Visit: Yes Status: Acute Code(s): K92.2 - GASTROINTESTINAL HEMORRHAG E, UNSPECIFIED SNOMED Code(s): 63149788 (3) Arteriovenous malformation of duodenum Current Visit: Yes Status: Acute Code(s): K31.819 - ANGIODYSPLASIA OF STOMACH AND DUODENUM WITHOUT BLEEDING SNOMED Code(s): 153120885 Plan: 1. Continue symptomatic and supportive care 2. Clear liquid diet, nothing by mouth after midnight 3. Daily CBC, transfuse if hemoglobin less than 7 4. In light of new bright red blood with stool, patient is agreeable for colonoscopy will be scheduled for tomorrow 5. Bowel prep this evening Thank you for this consultation, we will continue to follow Dr. Opal Dixon I agree with the dictator's note, documented as a scribe by Frida Bentley.
[2020-06-07] MEDS ORDERED: PEG 3350-NA SULF,BICARB,CL/KCL 4,000 ML BOTTLE PO ONE (16:00)
--- NOTE | 2020-06-07 20:45 | P.PN ---
Progress Note - Text Progress Note Date: 06/07/20 Chief Complaint: Weak and tired History of presenting complaint: This is a very pleasant 74-year-old patient of Dr. Price. Chronic stable medical conditions include GERD, hypertension, hyperlipidemia, osteoarthritis. Iron deficiency anemia has received iron infusions. Urinary incontinence. Patient did undergo EGD by Dr. 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 I do not have the formal details on the EGD. Patient had gone to see her dubbing machine operator Dr. Pickard who found the patient to be rather pale. Hemoglobin was sent off. Patient has been feeling weak and tired rundown short of breath and decided to come in. Hemoglobin was found to be 7.5. Hemoglobin was 12.3 in March of this year. Unit of blood was ordered in the ER. No abdominal pain. Patient underwent EGD. AV malformation in the duodenal third part. Received epinephrine injection with cauterization. Today: No abdominal pain. Possible blood in the stool today. Review of systems: Was done for constitutional, cardiovascular, GI, pulmonary. relevant finding as above Active Medications Acetaminophen (Acetaminophen Tab 325 Mg Tab) 650 mg PO Q6HR PRN PRN Reason: Fever and/ or Pain Last Admin: 06/06/20 01:21 Dose: 650 mg Documented by: Lisinopril/HCTZ (Lisinopril-Hctz 20-12.5 Mg 1 Each Tab) 1 each PO DAILY [facility] Last Admin: 06/07/20 09:10 Dose: 1 each Documented by: Sodium Chloride (Saline 0.9%) 1,000 mls @ 50 mls/hr IV .Q20H [facility] Last Admin: 06/07/20 20:38 Dose: Not Given Documented by: Naloxone HCl (Naloxone 0.4 Mg/Ml 1 Ml Vial) 0.2 mg IV Q2M PRN PRN Reason: Opioid Reversal Pantoprazole Sodium (Pantoprazole 40 Mg/10 Ml Vial) 40 mg IVP BID [facility] Last Admin: 06/07/20 20:38 Dose: 40 mg Documented by: Polyethylene Glycol (Polyethylene Glycol 3350 17 Gm Powd.Pack) 17 gm PO DAILY [facility] Last Admin: 06/07/20 09:11 Dose: Not Given Documented by: Past medical history to include: GERD, hyperlipidemia, hypertension, osteoarthritis, iron deficiency anemia with iron infusions, cervical cancer with radiation in 1979. Urinary incontinence. Bariatric surgery including lap band. Social history: . No history of smoking or alcohol. Physical examination: VITAL SIGNS: 98.1, 62, 20, 102/55, 94% room air GENERAL: Laying in bed, comfortable EYES: [Pupils equal. Conjunctiva pale HEENT: External appearance of nose and ears normal, oral cavity grossly normal. NECK: JVD not raised; masses not palpable. HEART: First and second heart sounds are normal; no edema. LUNGS: Respiratory rate normal; clear to auscultation. MUSCULAR skeletal: Evidence of OA ABDOMEN: Soft, nontender, liver spleen not palpable, no masses palpable. PSYCH: Alert and oriented x3; mood and affect normal. INVESTIGATIONS, reviewed in the clinical context: June 07: White count 6.7 hemoglobin 9 June 06: Hemoglobin was 8.6 yesterday evening and 7.6 this morning WBC 7.2 hemoglobin 7.5 platelets 293 potassium 4.8 creatinine 0.9 Stool occult blood positive Influenza type A, diabetic, RSV, COVID 19: Not detected Previous labs: From March 25 2020: Hemoglobin 12.3 Assessment and plan: -Acute on chronic GI bleed in a patient with known upper GI AV malformations. EGD - Bleeding AV malformation in the third part of duodenum that caught injection epinephrine followed by cautery. good hemostasis -Acute blood loss anemia, symptomatic 2 units of blood -Morbid obesity BMI 46.9 Weight loss measures. Patient had a bariatric surgery before. Follow-up with PCP. -GERD Continue PPI -Hyperlipidemia Diet-controlled -Essential hypertension Continue with antihypertensive. Keep a close eye on blood pressure -Primary osteoarthritis Use Tylenol when necessary -Chronic urinary stress incontinence Patient to have colonoscopy tomorrow. Discussed with the patient in GI.
[2020-06-08 05:33] LABS: Anisocytosis Slight; Basophils % (A) 0 %; Eosinophils # (A) 0.2 k/uL (0-0.7); Eosinophils % (A) 4 %; HCT 30.5 % (34.0-46.0); HGB 8.8 gm/dL (11.4-16.0); Hypochromasia Marked; Lymphocytes # (A) 0.9 k/uL (1.0-4.8); Lymphocytes % (A) 17 %; MCH 21.4 pg (25.0-35.0); MCHC 28.8 g/dL (31.0-37.0); MCV 74.2 fL (80.0-100.0); Mean Platelet Volume 7.9; Microcytosis Moderate; Monocytes # (A) 0.4 k/uL (0-1.0); Monocytes % (A) 7 %; Neutrophils # (A) 3.7 k/uL (1.3-7.7); Neutrophils % (A) 70 %; Platelet Count 241 k/uL (150-450); Poikilocytosis Moderate; RDW 18.7 % (11.5-15.5); WBC 5.2 k/uL (3.8-10.6)
[2020-06-08] MEDS: LISINOPRIL-HCTZ 20-12.5 MG 1 EACH TAB PO SCH (08:06)
[2020-06-08] MEDS: PANTOPRAZOLE 40 MG/10 ML VIAL IVP SCH (08:06)
[2020-06-08] MEDS: polyethylene glycoL 3350 17 GM POWD.PACK PO SCH (08:06)
[2020-06-08] MEDS ORDERED: IV FLUID CONTINUATION 600 ML IV ONE (08:50)
[2020-06-08] MEDS ORDERED: PROPOFOL 10 MG/ML 20 ML VIAL IV ONE (08:50)
--- NOTE | 2020-06-08 09:13 | P.PCN ---
Date of Procedure: 06/08/20 Procedure(s) Performed: BRIEF HISTORY: Patient is a 74-year-old pleasant white female admitted hospital with acute GI bleed and severe symptomatic anemia. She underwent an upper endoscopy recently was noted to have duodenal angiectasia that was cauterized. Subsequently she started having some rectal bleeding yesterday and hence scheduled for colonoscopy to evaluate further. PROCEDURE PERFORMED: Colonoscopy with argon plasma coagulation . PREOPERATIVE DIAGNOSIS: anemia/GI bleed. IV sedation per Anesthesia. PROCEDURE: After informed consent was obtained, the patient, was brought into the endoscopy unit. IV sedation was administered by Anesthesia under continuous monitoring. Digital rectal examination was normal. Initially the Olympus CF-160 flexible video colonoscope was then inserted in the rectum, gradually advanced into the cecum without any difficulty. Careful examination was performed as the scope was gradually being withdrawn. Ileocecal valve and the appendiceal orifice were visualized and appeared normal. Prep was excellent. Mucosa of the cecum, ascending colon, transverse colon, descending colon, sigmoid colon, and rectum appeared normal. Retroflexion was performed in the rectum and no lesions were seen. The patient tolerated the procedure well. IMPRESSION: 4 scattered arteriovenous malformation in the base of the cecum measuring between 3 mm to 5 limited to in size all of which were coagulated with argon plasma with good hemostasis scattered sigmoid diverticulosis RECOMMENDATIONS: Findings of this examination were discussed with the patient . Diet will be advanced as tolerated. Monitor CBC periodically an outpatient basis. She can be discharged home today. Continue iron supplements..
[2020-06-08 11:40] VITALS: BP 123/57; PULSE 60; RESP 18; TEMP 97.6
--- NOTE | 2020-06-08 19:35 | P.DS ---
Providers Date of admission: 06/05/20 13:20 Expected date of discharge: 06/08/20 Attending physician: Hayden Lucio Consults: 06/05/20 13:21 Consult Physician Routine Consulting Provider: Keon Hyatt Consult Reason/Comments: Upper GI bleed Do you want consulting provider notified?: Yes 06/05/20 19:49 Consult Physician Routine Consulting Provider: Rena Dixon Consult Reason/Comments: GI bleed Do you want consulting provider notified?: Yes Primary care physician: [facility] Course: Chief Complaint: Weak and tired History of presenting complaint: This is a very pleasant 74-year-old patient of Dr. Price. Chronic stable medical conditions include GERD, hypertension, hyperlipidemia, osteoarthritis. Iron deficiency anemia has received iron infusions. Urinary incontinence. Patient did undergo EGD by Dr. 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 I do not have the formal details on the EGD. Patient had gone to see her drywall contractor Dr. Pickard who found the patient to be rather pale. Hemoglobin was sent off. Patient has been feeling weak and tired rundown short of breath and decided to come in. Hemoglobin was found to be 7.5. Hemoglobin was 12.3 in March of this year. Unit of blood was ordered in the ER. No abdominal pain. Patient underwent EGD. AV malformation in the duodenal third part. Received epinephrine injection with cauterization. Today: She underwent colonoscopy. Was found to have AV malformation the cecum. Cauterized. Also found a sigmoid diverticulosis. Cleared by Dr. Opal Dixon to be discharged. Care was discussed with the patient and questions answered. She'll follow up with Dr. Young in the office. Discussion and discharge planning more than 35 minutes Consultation: Dr. Opal Dixon from GI Past medical history to include: GERD, hyperlipidemia, hypertension, osteoarthritis, iron deficiency anemia with iron infusions, cervical cancer with radiation in 1979. Urinary incontinence. Bariatric surgery including lap band. Social history: . No history of smoking or alcohol. Physical examination: VITAL SIGNS: 97.6, 60, 18, 123/57, 99% room air GENERAL: Sitting up in chair comfortable HEART: First and second heart sounds are normal; no edema. LUNGS: Respiratory rate normal; clear to auscultation. ABDOMEN: Soft, nontender, liver spleen not palpable, no masses palpable. PSYCH: Alert and oriented x3; mood and affect normal. INVESTIGATIONS, reviewed in the clinical context: June 08: WBC 5.2 hemoglobin 8.8 June 07: White count 6.7 hemoglobin 9 June 06: Hemoglobin was 8.6 yesterday evening and 7.6 this morning WBC 7.2 hemoglobin 7.5 platelets 293 potassium 4.8 creatinine 0.9 Stool occult blood positive Influenza type A, diabetic, RSV, COVID 19: Not detected Previous labs: From March 25 2020: Hemoglobin 12.3 Assessment and plan: -Acute on chronic GI bleed-Bleeding AV malformation in the third part of duode num that injected with epinephrine followed by cautery. Cecal AV malformation that is also cauterized. Follow-up Dr. Young -Acute GI blood loss anemia, symptomatic 2 units of blood -Morbid obesity BMI 46.9 Weight loss measures. Patient had a bariatric surgery before. Follow-up with PCP. -GERD Continue PPI -Hyperlipidemia Diet-controlled -Essential hypertension Continue with antihypertensive. Keep a close eye on blood pressure -Primary osteoarthritis Use Tylenol when necessary -Chronic urinary stress incontinence Disposition: Home Plan - Discharge Summary New Discharge Prescriptions: Continue Lisinopril-Hctz 20-12.5 mg [Zestoretic 20-12.5] 1 tab PO DAILY Omeprazole [PriLOSEC] 20 mg PO DAILY Discharge Medication List Lisinopril-Hctz 20-12.5 mg [Zestoretic 20-12.5] 1 tab PO DAILY 04/30/14 [History] Omeprazole [PriLOSEC] 20 mg PO DAILY 04/12/20 [History] Follow up Appointment(s)/Referral(s): Solitario Price MD [Primary Care Provider] - 1-2 days (please call Wednesday to make appt. office closed at time of discharge.) Rena Dixon MD [STAFF PHYSICIAN] - 2 Weeks (please call Wednesday to make appt. office closed at time of discharge.) Patient Instructions/Handouts: Hiatal Hernia (DC), Colonoscopy (DC), Upper Endoscopy (DC) Activity/Diet/Wound Care/Special Instructions: Arteriovenous malformation was cauterized in the bowel WHAT YOU NEED TO KNOW: An arteriovenous malformation (AVM) is an abnormal connection between arteries and veins. The connection becomes tangled. Blood flows too quickly from the arteries and pushes on the desouza of the veins. The desouza weaken and become narrow. The artery desouza also become weak. They begin to bulge from blood that is not able to go into the narrow veins. An AVM that has not burst usually causes no symptoms. A burst AVM may cause bleeding. Discharge Disposition: HOME SELF-CARE
== END 2020-06-08 13:00 | disposition home or self-care (01) | DRG 378 ==
LOC: EC 11:23 → 5NMEDONC 13:20
PROVIDERS: ADMIT Hospitalist; ATTEND Hospitalist
PROC: 30233N1 Transfusion of Nonautologous Red Blood Cells into Peripheral Vein, Percutaneous Approach (ICD-10-PCS; 2020-06-05)
PROC: 3E0G8GC Introduction of Other Therapeutic Substance into Upper GI, Via Natural or Artificial Opening Endoscopic (ICD-10-PCS; principal; 2020-06-06 07:45)
PROC: 0W3P8ZZ Control Bleeding in Gastrointestinal Tract, Via Natural or Artificial Opening Endoscopic (ICD-10-PCS; 2020-06-08)
DX: K31.811 Angiodysplasia of stomach and duodenum with bleeding (principal); D62 Acute posthemorrhagic anemia; Z68.42 Body mass index [BMI] 45.0-49.9, adult; K55.20 Angiodysplasia of colon without hemorrhage; K21.9 Gastro-esophageal reflux disease without esophagitis; K44.9 Diaphragmatic hernia without obstruction or gangrene; D50.9 Iron deficiency anemia, unspecified; E66.01 Morbid (severe) obesity due to excess calories; E78.5 Hyperlipidemia, unspecified; I10 Essential (primary) hypertension; K57.30 Diverticulosis of large intestine without perforation or abscess without bleeding; M19.91 Primary osteoarthritis, unspecified site; N39.3 Stress incontinence (female) (male); Z80.1 Family history of malignant neoplasm of trachea, bronchus and lung; Z85.41 Personal history of malignant neoplasm of cervix uteri; Z92.3 Personal history of irradiation; Z96.651 Presence of right artificial knee joint; Z98.84 Bariatric surgery status; Z71.3 Dietary counseling and surveillance; Z90.89 Acquired absence of other organs; Z98.42 Cataract extraction status, left eye; Z98.41 Cataract extraction status, right eye; Z88.2 Allergy status to sulfonamides
CPT/HCPCS: 36415; 43243; 43255; 45382; 74022; 80053; 82272; 83735; 85025; 85610; 85730; 86850; 86900; 86901; 86920; 87636; 99285

== ENCOUNTER → 2020-08-06 | Outpatient (CLI) | payer MEDICARE, OTHER ==
--- NOTE | 2020-08-06 09:51 | CT ---
EXAMINATION TYPE: CT adrenal glands wo/w con DATE OF EXAM: 08/06/2020 COMPARISON: 01/18/2020 HISTORY: adrenal mass CT DLP: 2754.8 mGycm CONTRAST: CT scan of the abdomen is performed and without and with IV Contrast, patient injected with 100 mL of Isovue 300. FINDINGS: LUNG BASES-: No visible nodule. No infiltrate. LIVER/GB: Cholecystectomy clips are in place. No space occupying hepatic lesion. Biliary tree is of n ormal caliber. PANCREAS: No inflammation. No distinct mass. SPLEEN: No splenic enlargement. No lesion seen. Splenic granulomas seen. ADRENALS: Left adrenal nodule measures 2 cm and demonstrates several areas of internal fat in flexion adenoma. The right adrenal gland is unremarkable. KIDNEYS/BLADDER: No hydronephrosis. No nephrolithiasis. No distinct renal mass. Urinary bladder g rossly unremarkable. BOWEL: Normal appendix. Gastric banding procedure noted. There is a hiatal hernia seen. Normal bowel caliber. No inflammation. GENITAL ORGANS: No gross abnormality. LYMPH NODES: No greater than 1cm abdominal or pelvic lymph nodes are appreciated. AORTA: No significant abnormality. OSSEOUS STRUCTURES: No significant abnormality is seen. OTHER: Epigastric fat-containing hernia. IMPRESSION: 1. Left adrenal adenoma.
== END | disposition home or self-care (01) ==
LOC: RADCTMAIN 07:47
PROVIDERS: ATTEND Family Medicine
DX: D35.02 Benign neoplasm of left adrenal gland (principal); R19.09 Other intra-abdominal and pelvic swelling, mass and lump
CPT/HCPCS: 82565; 84520; 36415; 74170; Q9967

== ENCOUNTER 2021-02-19 09:21 | Inpatient (IN) | payer MEDICARE, OTHER ==
[2021-02-19 10:24] LABS: Anisocytosis Slight; Basophils % (A) 0 %; Eosinophils # (A) 0.1 k/uL (0-0.7); Eosinophils % (A) 2 %; HCT 37.9 % (34.0-46.0); HGB 11.1 gm/dL (11.4-16.0); Hypochromasia Marked; Lymphocytes % (A) 14 %; MCHC 29.2 g/dL (31.0-37.0); MCV 75.4 fL (80.0-100.0); Mean Platelet Volume 8.5; Microcytosis Moderate; Monocytes # (A) 0.5 k/uL (0-1.0); Monocytes % (A) 8 %; Neutrophils # (A) 5.1 k/uL (1.3-7.7); Neutrophils % (A) 74 %; Platelet Count 276 k/uL (150-450); RBC 5.03 m/uL (3.80-5.40); RDW 17.6 % (11.5-15.5); WBC 6.9 k/uL (3.8-10.6)
[2021-02-19 10:38] LABS: Partial Thromboplastin Time 23.6 sec (22.0-30.0); Prothrombin Time 10.3 sec (9.0-12.0)
[2021-02-19 10:40] LABS: Calcium 9.5 mg/dL (8.4-10.2); Magnesium 1.7 mg/dL (1.6-2.3); Potassium 4.7 mmol/L (3.5-5.1); Total Bilirubin 0.9 mg/dL (0.2-1.3); Total Protein 7.2 g/dL (6.3-8.2)
--- NOTE | 2021-02-19 10:57 | ED ---
General Adult HPI - General Chief complaint: Shortness of Breath Stated complaint: Low O2/SOB Time Seen by Provider: 02/19/21 09:26 Source: patient, RN notes reviewed, old records reviewed Mode of arrival: wheelchair Limitations: no limitations - History of Present Illness Initial comments: Patient is a 75-year-old female with past medical history remarkable for hypertension, AVMs, severe iron deficiency anemia, chronic blood transfusions who presents emergency Department complaining of a multiweek history of shortness of breath associated with intermittent lightheadedness. She describes shortness of breath is worsening with exertion. Denies any chest pain or abdominal pain. Denies any worsening or extremity edema. Denies any fever, nausea, vomiting. Does state that since her last blood transfusion, hemoglobin 8 has at least dropped by 2, from 12 to 10. She states this is a slightly faster decrease than normal. She does endorse black tarry skull stools that are intermittent as well as one-time episode of bright red blood per rectum. She denies any nausea, vomiting, emesis. Denies any change in bowel habits or bowel movements. Denies any change in diet. Denies any ears, chills, cough. States he symptoms that she is having is typical for when her anemia is bad. She has a follow-up exam with her GI doctor, Dr. Dixon later today but was sent here by her PCP for further evaluation prior to this visit.Has a history of AVMs on previous scopes. - Related Data Home Medications Medication Instructions Recorded Confirmed Lisinopril-Hctz 20-12.5 mg 1 tab PO DAILY 04/30/14 02/19/21 [Zestoretic 20-12.5] Omeprazole [PriLOSEC] 20 mg PO DAILY 04/12/20 02/19/21 Biotin 5 mg PO DAILY 02/19/21 02/19/21 Cholecalciferol [Vitamin D3 (125 125 mcg PO DAILY 02/19/21 02/19/21 Mcg = 5000 Iu)] Cyclobenzaprine [Flexeril] 5 mg PO DAILY PRN 02/19/21 02/19/21 Ferrous Sulfate 75 mg PO DAILY 02/19/21 02/19/21 Meclizine HCl 25 mg PO TID PRN 02/19/21 02/19/21 Allergies Allergy/AdvReac Type Severity Reaction Status Date / Time Sulfa (Sulfonamide Allergy Anaphylaxis Verified 02/19/21 11:07 Antibiotics) Review of Systems ROS Statement: Those systems with pertinent positive or pertinent negative responses have been documented in the HPI. ROS Other: All systems not noted in ROS Statement are negative. Past Medical History Past Medical History: Blood Disorder, Cancer, GERD/Reflux, Hyperlipidemia, Hypertension, Osteoarthritis (OA) Additional Past Medical History / Comment(s): Current SOB, SEVERE IRON DEFICIENC Y ANEMIA-iron infusions q 2-3 months, last July 16. Hx CERVICAL CA with radiation in 1979, heart murmur, urinary incontinence, bronchitis X3 in last yr. History of Any Multi-Drug Resistant Organisms: None Reported Past Surgical History: Bariatric Surgery, Bladder Surgery, Hernia Repair, Joint Replacement, Orthopedic Surgery, Tonsillectomy Additional Past Surgical History / Comment(s): RT SHOULDER ROTATOR CUFF x 2, LAP BAND, RT knee replacement, BLADDER SUSP, EUGENIA carpal tunnel, EUGENIA CATARACT, PANNICULECTOMY, COLONOSCOPY, trigger finger X3-4. Past Anesthesia/Blood Transfusion Reactions: Previous Problems w/ Anesthesia Additional Past Anesthesia/Blood Transfusion Reaction / Comment(s): STATES HAD RESPIRATORY ISSUES/COUGHING POST OP, O2 SAT LOW(HAD BLOCK IN NECK) with PAST ROTATOR CUFF SX, 2ND SHOULDER SURGERY HAD NO PROBLEMS. Past Psychological History: No Psychological Hx Reported Smoking Status: Never smoker - Past Family History Mother Family Medical History: No Reported History Additional Family Medical History / Comment(s): LUNG CA General Exam Limitations: no limitations Course Vital Signs 02/19/21 02/19/21 09:26 13:04 Temperature 98.4 F 98.8 F Pulse Rate 95 72 Respiratory 18 18 Rate Blood Pressure 127/84 121/81 O2 Sat by Pulse 98 99 Oximetry Medical Decision Making - Medical Decision Making Based on the patient's presentation and physical exam, as well as the history, I'm concerned for possible GI bleeding the patient cannot rule out cardiac primary cause for current symptoms. Therefore we will obtain a cardiac workup in addition to hemoglobin, SOB T. Patient was in agreement this plan. EKG showed no signs of acute ischemia. Chest x-ray revealed acute cardiopulmonary process. Laboratory studies are remarkable for a microcytic anemia with hemoglobin of 11.1. D-dimer is 0.92. SOB T is still called what is negative. Covid is negative. Hemoglobin is stable at 11.1.Troponin is negative and patient's BNP is within normal limits. Due to the patient's elevated d-dimer, I did recommend that we to obtain a CT angiogram to rule out the possibility of pulmonary embolism. She was in agreement this plan. This is a suboptimal study without obvious PE. There is evidence of old granulomatous disease but no acute pulmonary process. On Reevaluation, patient is still subjectively short of breath. I discussed with her the normal workup, including normal cardiac workup and CT angiogram. Due to her dyspnea, she does occasionally get lightheaded. She feels uncomfortable going home like this. I'm in agreement with this. I do believe that a short-term admission is justified. We can evaluate for hemoconcentration of her hemoglobin value as well and she will receive a 1 L fluid bolus. I consulted Dr. Dixon of to evaluate her, as she is missing her appointment later today. I spoke with the admitting team under Dr. Kan who accepted the patient. Patient was therefore admitted in stable condition to observation. - Lab Data Result diagrams: 02/19/21 10:04 02/19/21 10:04 Lab Results 02/19/21 02/19/21 02/19/21 Range/Units 10:04 10:04 10:04 WBC 6.9 (3.8-10.6) k/uL RBC 5.03 (3.80-5.40) m/uL Hgb 11.1 L (11.4-16.0) gm/dL Hct 37.9 (34.0-46.0) % MCV 75.4 L (80.0-100.0) fL MCH 22.0 L (25.0-35.0) pg MCHC 29.2 L (31.0-37.0) g/dL RDW 17.6 H (11.5-15.5) % Plt Count 276 (150-450) k/uL MPV 8.5 Neutrophils % 74 % Lymphocytes % 14 % Monocytes % 8 % Eosinophils % 2 % Basophils % 0 % Neutrophils # 5.1 (1.3-7.7) k/uL Lymphocytes # 1.0 (1.0-4.8) k/uL Monocytes # 0.5 (0-1.0) k/uL Eosinophils # 0.1 (0-0.7) k/uL Basophils # 0.0 (0-0.2) k/uL Hypochromasia Marked Anisocytosis Slight Microcytosis Moderate PT 10.3 (9.0-12.0) sec INR 1.0 (<1.2) APTT 23.6 (22.0-30.0) sec D-Dimer (<0.60) mg/L FEU Sodium 138 (137-145) mmol/L Potassium 4.7 (3.5-5.1) mmol/L Chloride 104 (98-107) mmol/L Carbon Dioxide 27 (22-30) mmol/L Anion Gap 7 mmol/L BUN 17 (7-17) mg/dL Creatinine 0.80 (0.52-1.04) mg/dL Est GFR (CKD-EPI)AfAm 84 (>60 ml/min/1.73 sqM) Est GFR (CKD-EPI)NonAf 73 (>60 ml/min/1.73 sqM) Glucose 95 (74-99) mg/dL Calcium 9.5 (8.4-10.2) mg/dL Magnesium 1.7 (1.6-2.3) mg/dL Total Bilirubin 0.9 (0.2-1.3) mg/dL AST 32 (14-36) U/L ALT 24 (4-34) U/L Alkaline Phosphatase 117 (38-126) U/L Troponin I (0.000-0.034) ng/mL NT-Pro-B Natriuret Pep pg/mL Total Protein 7.2 (6.3-8.2) g/dL Albumin 4.0 (3.5-5.0) g/dL Stool Occult Blood (Negative) Coronavirus (PCR) (Not Detectd) 02/19/21 02/19/21 02/19/21 Range/Units 10:04 10:04 10:04 WBC (3.8-10.6) k/uL RBC (3.80-5.40) m/uL Hgb (11.4-16.0) gm/dL Hct (34.0-46.0) % MCV (80.0-100.0) fL MCH (25.0-35.0) pg MCHC (31.0-37.0) g/dL RDW (11.5-15.5) % Plt Count (150-450) k/uL MPV Neutrophils % % Lymphocytes % % Monocytes % % Eosinophils % % Basophils % % Neutrophils # (1.3-7.7) k/uL Lymphocytes # (1.0-4.8) k/uL Monocytes # (0-1.0) k/uL Eosinophils # (0-0.7) k/uL Basophils # (0-0.2) k/uL Hypochromasia Anisocytosis Microcytosis PT (9.0-12.0) sec INR (<1.2) APTT (22.0-30.0) sec D-Dimer 0.92 H (<0.60) mg/L FEU Sodium (137-145) mmol/L Potassium (3.5-5.1) mmol/L Chloride (98-107) mmol/L Carbon Dioxide (22-30) mmol/L Anion Gap mmol/L BUN (7-17) mg/dL Creatinine (0.52-1.04) mg/dL Est GFR (CKD-EPI)AfAm (>60 ml/min/1.73 sqM) Est GFR (CKD-EPI)NonAf (>60 ml/min/1.73 sqM) Glucose (74-99) mg/dL Calcium (8.4-10.2) mg/dL Magnesium (1.6-2.3) mg/dL Total Bilirubin (0.2-1.3) mg/dL AST (14-36) U/L ALT (4-34) U/L Alkaline Phosphatase (38-126) U/L Troponin I <0.012 (0.000-0.034) ng/mL NT-Pro-B Natriuret Pep 96 pg/mL Total Protein (6.3-8.2) g/dL Albumin (3.5-5.0) g/dL Stool Occult Blood (Negative) Coronavirus (PCR) (Not Detectd) 02/19/21 02/19/21 Range/Units 11:31 11:37 WBC (3.8-10.6) k/uL RBC (3.80-5.40) m/uL Hgb (11.4-16.0) gm/dL Hct (34.0-46.0) % MCV (80.0-100.0) fL MCH (25.0-35.0) pg MCHC (31.0-37.0) g/dL RDW (11.5-15.5) % Plt Count (150-450) k/uL MPV Neutrophils % % Lymphocytes % % Monocytes % % Eosinophils % % Basophils % % Neutrophils # (1.3-7.7) k/uL Lymphocytes # (1.0-4.8) k/uL Monocytes # (0-1.0) k/uL Eosinophils # (0-0.7) k/uL Basophils # (0-0.2) k/uL Hypochromasia Anisocytosis Microcytosis PT (9.0-12.0) sec INR (<1.2) APTT (22.0-30.0) sec D-Dimer (<0.60) mg/L FEU Sodium (137-145) mmol/L Potassium (3.5-5.1) mmol/L Chloride (98-107) mmol/L Carbon Dioxide (22-30) mmol/L Anion Gap mmol/L BUN (7-17) mg/dL Creatinine (0.52-1.04) mg/dL Est GFR (CKD-EPI)AfAm (>60 ml/min/1.73 sqM) Est GFR (CKD-EPI)NonAf (>60 ml/min/1.73 sqM) Glucose (74-99) mg/dL Calcium (8.4-10.2) mg/dL Magnesium (1.6-2.3) mg/dL Total Bilirubin (0.2-1.3) mg/dL AST (14-36) U/L ALT (4-34) U/L Alkaline Phosphatase (38-126) U/L Troponin I (0.000-0.034) ng/mL NT-Pro-B Natriuret Pep pg/mL Total Protein (6.3-8.2) g/dL Albumin (3.5-5.0) g/dL Stool Occult Blood Negative (Negative) Coronavirus (PCR) Not Detected (Not Detectd) - EKG Data -: EKG Interpreted by Me EKG Comments: 12-lead Electrocardiogram Interpretation Note EKG was reviewed and interpreted by myself. 12-lead ECG performed at 0952 is interpreted by me as revealing normal sinus rhythm with premature atrial comple xes at a rate of 81 beats per minute. [place] is normal. UT interval is 150 ms, QRS duration is 86 ms, QTc is 411 ms.. There were no ST or T wave abnormalities to suggest myocardial ischemia or injury. R wave progression across the precordium was satisfactory. By my interpretation this EKG is non-diagnostic for acute ischemia. Disposition Clinical Impression: Dyspnea, Chronic anemia, History of GI bleed, Elevated d-dimer Disposition: ADMITTED IP TO THIS HOSP Condition: Stable Is patient prescribed a controlled substance at d/c from ED?: No Referrals: Solitario Price MD [Primary Care Provider] - 1-2 days
--- NOTE | 2021-02-19 12:14 | XR ---
EXAMINATION TYPE: XR chest 2V DATE OF EXAM: 02/19/2021 COMPARISON: Chest x-ray June 06, 2020 HISTORY: Chest pain and shortness of breath with exertion. History of anemia. TECHNIQUE: Frontal and lateral views of the chest are obtained. FINDINGS: There is no suspicious new focal air space opacity, pleural effusion, or pneumothorax seen . The cardiac silhouette size is mildly enlarged with ectatic thoracic aorta redemonstrated. Maida cystectomy clips are present. A lap band device epigastric region again seen. Degenerative changes ri ght shoulder redemonstrated. IMPRESSION: Mild cardiomegaly without acute pulmonary process.
--- NOTE | 2021-02-19 12:58 | CT ---
EXAMINATION TYPE: CT chest angio for PE DATE OF EXAM: 02/19/2021 COMPARISON: Same day chest x-ray HISTORY: Difficulty breathing CT DLP: 956.4 mGycm. Automated Exposure Control for Dose Reduction was Utilized. CONTRAST: CTA scan of the thorax is performed with IV Contrast, patient injected with 100, wasted 35 mL of Isov ue 370, pulmonary embolism protocol. MIP Images are created on CT scanner and reviewed. FINDINGS: LUNGS: Respiratory motion artifact degradation is present making evaluation slightly suboptimal parti cularly for subcentimeter nodules. Lungs are grossly clear without suspicious focal consolidation. Th ere is 9 mm posterior left lower lobe calcified nodule or benign granuloma axial image 81. There is 5 x 4 mm right mid lung nodule anteriorly axial image 53 which appears to correspond to the minor fiss ure on sagittal images favoring benign intrapulmonary lymph node. No pleural effusion or pneumothorax seen bilaterally. MEDIASTINUM: There is suboptimal study with diminished bolus and heterogeneity towards the periphery. No central pulmonary embolism. No obvious peripheral segmental pulmonary embolism. Satisfactory enha ncement of the aorta without dissection. Ascending aorta measures up to 3.7 cm transversely axial maryse ge 46. There are calcified subcarinal and left hilar lymph nodes. No cardiomegaly or pericardial ef fusion is seen. OTHER: Small sized hiatal hernia. Lap band device just below diaphragm satisfactory in position. Nume florina calcifications throughout the spleen. Cholecystectomy clips. Occasional calcifications scattered throughout the liver. Partially exophytic thin-walled cyst posteriorly from the upper pole left kid vilma. [id number] multilevel spurring in the spine with underlying scoliotic curvature. IMPRESSION: 1. Suboptimal study without acute central pulmonary embolism. 2. Evidence of old granulomatous disease. No acute pulmonary process.
[2021-02-19] MEDS ORDERED: SODIUM CHLORIDE 0.9% 1,000 ML IV STA (13:32)
[2021-02-19] MEDS ORDERED: NALOXONE 0.4 MG/ML 1 ML VIAL IV PRN (13:34)
[2021-02-19] MEDS ORDERED: CYCLOBENZAPRINE 5 MG TAB PO PRN (13:37)
--- NOTE | 2021-02-19 17:15 | P.HPIM ---
<Vijay Adorno - Last Filed: 02/19/21 16:14> History of Present Illness H&P Date: 02/19/21 History of Presenting Illness: Patient is a very pleasant 75-year-old female with a past medical history of AVM s, hypertension, and severe iron deficiency anemia requiring frequent blood transfusions. She presented to the emergency department with a chief complaint of shortness of breath, dizziness, lightheadedness, and intermittent black tarry stools. She underwent full evaluation in the emergency department. Labs completed revealing macrocytic microchromic anemia with hemoglobin of 11.1 and an elevated d-dimer of 0.92. Occult stool was negative and Covid PCR was negative. A chest x-ray was completed negative for acute cardiopulmonary process revealing mild cardiomegaly. CT completed negative for acute cardiopulmonary process and negative for pulmonary embolism revealing evidence of old granulomatous disease. EKG revealed normal sinus rhythm at 81 bpm with PACs, no noted T-wave or ST abnormalities. Patient was admitted under our services with consultation to GI. Patient seen and fully evaluated at the bedside, she reports she has been experiencing increased weakness, dizzinesslightheadedness, and dyspnea with exertion over the past 2 weeks. She reports in addition to this she has also been having intermittent episodes of dark black tarry stools accompanied by a one-time episode of bright red blood in stool. She denies having any fever, chills, diaphoresis, chest pain, palpitat ions, abdominal pain, nausea, vomiting, changes in appetite or unintended weight loss, or experiencing any numbness/tingling/weakness in her extremities. Patient states that she was concerned as she has had at least 9 previous AVM[address] repaired by Dr. Dixon during previous endoscopies and colonoscopies. Review of systems: Pertinent positives and negatives as discussed in HPI, a complete review of systems was performed and all other systems are negative. Physical exam: Vital signs reviewed and stable. General: Nontoxic, no distress and appears stated age. Derm: Skin warm and dry, normal coloration for ethnicity. Head: Atraumatic, normocephalic and symmetric. Eyes: EOMs intact, no lid lag, and anicteric sclera Mouth: no lip lesions, mucus membranes moist Cardiovascular: regular rate and rhythm with normal S1S2, no murmur, positive posterior tibial pulses bilaterally, and cap refill < 2 seconds. Lungs: Respirations even, regular, and unlabored on room air. Lungs CTA bilaterally, no rhonchi, no rales, no wheezing, and no accessory muscle usage. Abdominal: soft, nontender to palpation, no guarding, no appreciable organomegaly Ext: ROM intact. No gross muscle atrophy, no edema, no contractures Neuro: Speech clear, face symmetrical and CN II-XII grossly intact with no noted focal neuro deficits Psych: Alert and oriented to person, place, time, and situation. Appropriate and pleasant affect. Assessment and Plan of Care: Lower GI bleed with reports of melena Dizziness/lightheadedness Iron deficiency anemia -Consult Gastroenterology. -Monitor H&H closely and transfuse as needed for hemoglobin less than 7. -Protonix 40 mg IVP twice daily. -Nothing by mouth until cleared by GI. -Continued gentle hydration with 0.9% normal. -SCDs for DVT prophylaxis. Hypertension Monitor vital signs and continue daily medication regimen with lisinopril/hydrochlorothiazide. Incidental finding on CT revealed old granulomatous disease -Recommend patient to follow up outpatient with childcare attendant to establish care and for long-term monitoring and management as this could place her at an increased risk for development of bacterial or fungal lung infections in the future. CODE STATUS: Full code DVT prophylaxis: SCDs Discussed with: Patient and RN Anticipated discharge date: Clinical course to determine, likely 1-[address]: Home A total of 40 minutes was spent on the care of this complex patient more than 50% of the time was spent in counseling and care coordination. Past Medical History Past Medical History: Blood Disorder, Cancer, GERD/Reflux, Hyperlipidemia, Hypertension, Osteoarthritis (OA) Additional Past Medical History / Comment(s): Current SOB, SEVERE IRON DEFICIENCY ANEMIA-iron infusions q 2-3 months, last July 16. Hx CERVICAL CA with radiation in 1979, heart murmur, urinary incontinence, bronchitis X3 in last yr. History of Any Multi-Drug Resistant Organisms: None Reported Past Surgical History: Bariatric Surgery, Bladder Surgery, Hernia Repair, Joint Replacement, Orthopedic Surgery, Tonsillectomy Additional Past Surgical History / Comment(s): RT SHOULDER ROTATOR CUFF x 2, LAP BAND, RT knee replacement, BLADDER SUSP, EUGENIA carpal tunnel, EUGENIA CATARACT, PANNICULECTOMY, COLONOSCOPY, trigger finger X3-4. Past Anesthesia/Blood Transfusion Reactions: Previous Problems w/ Anesthesia Additional Past Anesthesia/Blood Transfusion Reaction / Comment(s): STATES HAD RESPIRATORY ISSUES/COUGHING POST OP, O2 SAT LOW(HAD BLOCK IN NECK) with PAST ROTATOR CUFF SX, 2ND SHOULDER SURGERY HAD NO PROBLEMS. Past Psychological History: No Psychological Hx Reported Smoking Status: Never smoker - Past Family History Mother Family Medical History: No Reported History Additional Family Medical History / Comment(s): LUNG CA Medications and Allergies Home Medications Medication Instructions Recorded Confirmed Type Lisinopril-Hctz 20-12.5 mg 1 tab PO DAILY 04/30/14 02/19/21 History [Zestoretic 20-12.5] Omeprazole [PriLOSEC] 20 mg PO DAILY 04/12/20 02/19/21 History Biotin 5 mg PO DAILY 02/19/21 02/19/21 History Cholecalciferol [Vitamin D3 (125 125 mcg PO DAILY 02/19/21 02/19/21 History Mcg = 5000 Iu)] Cyclobenzaprine [Flexeril] 5 mg PO DAILY PRN 02/19/21 02/19/21 History Ferrous Sulfate 75 mg PO DAILY 02/19/21 02/19/21 History Meclizine HCl 25 mg PO TID PRN 02/19/21 02/19/21 History Allergies Allergy/AdvReac Type Severity Reaction Status Date / Time Sulfa (Sulfonamide Allergy Anaphylaxis Verified 02/19/21 11:07 Antibiotics) Physical Exam Vitals: Vital Signs Temp Pulse Resp BP Pulse Ox 02/19/21 13:04 98.8 F 72 18 121/81 99 02/19/21 09:26 98.4 F 95 18 127/84 98 Intake and Output 02/18/21 02/19/21 02/19/21 22:59 06:59 14:59 Other: Weight 117.934 kg Results CBC & Chem 7: 02/19/21 10:04 02/19/21 10:04 Labs: Abnormal Lab Results - Last 24 Hours (Table) 02/19/21 02/19/21 Range/Units 10:04 10:04 Hgb 11.1 L (11.4-16.0) gm/dL MCV 75.4 L (80.0-100.0) fL MCH 22.0 L (25.0-35.0) pg MCHC 29.2 L (31.0-37.0) g/dL RDW 17.6 H (11.5-15.5) % D-Dimer 0.92 H (<0.60) mg/L FEU <Darinel Kan - Last Filed: 02/19/21 17:18> History of Present Illness Patient seen and evaluated by me independently. Patient was also seen by MARLEEN, the original author of this note. I am in agreement with the subjective, physical exam, and assessment and plan as documented with the addition/changes of my exam and assessment below. Gen: awake, alert HEENT: normocephalic, atraumatic, good hearing acuity, moist mucous membranes Resp: good air exchange, breathing comfortably with no accessory muscle use CVS: good distal perfusion x 4, GI: soft, NTTP, ND : no SPT, no CVAT, blair catheter not present MSK: no pitting edema, no clubbing Neuro: non-focal, moving all extremities Psych: cooperative, euthymic mood Plan: Trend CBC, PPI twice a day, transfuse when necessary for hemoglobin less than 7. GI consult pending. Physical Exam Osteopathic Statement: *. No significant issues noted on an osteopathic structural exam other than those noted in the History and Physical/Consult. Vitals: Vital Signs Temp Pulse Pulse Resp BP BP Pulse Ox 02/19/21 15:47 18 02/19/21 15:43 97.8 F 77 20 125/61 02/19/21 15:35 97.8 F 77 18 125/61 98 02/19/21 13:04 98.8 F 72 18 121/81 99 02/19/21 10:00 19 02/19/21 09:26 98.4 F 95 18 127/84 98 Intake and Output 02/19/21 02/19/21 02/19/21 06:59 14:59 22:59 Other: Weight 117.934 kg 117.934 kg Results CBC & Chem 7: 02/19/21 10:04 02/19/21 10:04 Labs: Abnormal Lab Results - Last 24 Hours (Table) 02/19/21 02/19/21 Range/Units 10:04 10:04 Hgb 11.1 L (11.4-16.0) gm/dL MCV 75.4 L (80.0-100.0) fL MCH 22.0 L (25.0-35.0) pg MCHC 29.2 L (31.0-37.0) g/dL RDW 17.6 H (11.5-15.5) % D-Dimer 0.92 H (<0.60) mg/L FEU
[2021-02-19] MEDS ORDERED: MECLIZINE 25 MG TAB PO PRN (17:19)
[2021-02-19] MEDS: PANTOPRAZOLE 40 MG TABLET PO SCH (19:37)
[2021-02-20] MEDS ORDERED: PANTOPRAZOLE 40 MG TABLET PO SCH (07:30)
[2021-02-20] MEDS: FERROUS SULFATE DROPS 750 MG/50 ML BOTTLE PO SCH (07:46)
[2021-02-20] MEDS: LISINOPRIL-HCTZ 20-12.5 MG 1 EACH TAB PO SCH (07:49)
[2021-02-20] MEDS: CHOLECALCIFEROL 125 MCG (5000 IU) TABLET PO SCH (07:49)
[2021-02-20] MEDS: PANTOPRAZOLE 40 MG TABLET PO SCH ×2 (07:49→19:55)
[2021-02-20] MEDS ORDERED: NON FORMULARY DRUG (Biotin [Biotin] 5 MG Capsule) PO SCH (09:00)
[2021-02-20 11:08] LABS: Basophils # (A) 0.03 X 10*3/uL (0.00-0.10); Basophils % (A) 0.6 %; Eosinophils # (A) 0.13 X 10*3/uL (0.04-0.35); Eosinophils % (A) 2.6 %; HCT 36.4 % (37.2-46.3); HGB 10.1 g/dL (12.0-15.0); Lymphocytes # (A) 0.84 X 10*3/uL (0.90-5.00); Lymphocytes % (A) 17.1 %; MCH 21.1 pg (27.0-32.0); MCHC 27.7 g/dL (32.0-37.0); MCV 76.2 fL (80.0-97.0); Monocytes # (A) 0.47 X 10*3/uL (0.20-1.00); Monocytes % (A) 9.6 %; Neutrophils # (A) 3.43 X 10*3/uL (1.80-7.70); Neutrophils % (A) 69.7 %; Platelet Count 242 X 10*3/uL (140-440); RBC 4.78 X 10*6/uL (4.10-5.20); RDW 19.1 % (11.5-14.5); WBC 4.92 X 10*3/uL (4.50-10.00)
[2021-02-20 11:16] LABS: African American GFR (CKD) 84.2 (60.0-200.0); Anion Gap 10.3 mmol/L (10.00-18.00); BUN/Creat Ratio 15.88 Ratio (12.00-20.00); Blood Urea Nitrogen 12.7 mg/dL (9.0-27.0); Calcium 9.2 mg/dL (8.7-10.3); Carbon Dioxide 26.7 mmol/L (20.0-27.5); Non-African American GFR(CKD) 72.6 (60.0-200.0)
--- NOTE | 2021-02-20 15:25 | P.CONS ---
History of Present Illness - Reason for Consult Consult date: 02/20/21 Anemia Requesting physician: Abdiel Allan - Chief Complaint Shortness of breath, dizziness - History of Present Illness This is 75-year-old female with a past medical history of chronic iron deficiency anemia, GI bleed, GERD, hyperlipidemia, hypertension, and osteoart hritis. Patient states she's been having complaints of shortness of breath especially with exertion since around December. States she has been following closely with her PCP and getting her IV iron infusions every 6 weeks. She went into the office and had out patient blood work that showed a hemoglobin of 10 and was told to come to the emergency department for further evaluation of possible GI bleed. Patient states she has intermittent black stool none currently. She denies any bright red blood per rectum, nausea, vomiting, or abdominal pain. Patient states she does get dizzy with movement especially with turning her head. She is not on any anticoagulation. She does take oral iron as well as her iron infusions. On admission she had a WBC 6.9 hemoglobin 11.1 hematocrit 37 platelet count 276,000, INR 1.0 total bilirubin 0.9 AST 32 ALT 24 alkaline phosphatase 117. She had a repeat labs showing a hemoglobin today of 10.1. Stool occult blood was negative. She does have a history of AVMs with her last EGD and colonoscopy done in May 2020 and June 2020 respectively. When it patient underwent EGD by Dr. 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 Small hiatal hernia. She also underwent a colonoscopy by Dr. Dixon showing for scattered AVMs in the base of the cecum treated with argon plasma with good hemostasis and scattered sigmoid diverticulosis. Review of Systems REVIEW OF SYSTEMS: CARDIOPULMONARY: No chest pain. Shortness of breath especially with exertion. Gastrointestinal: No abdominal pain. No nausea or vomiting. No hematemesis, coffee-ground emesis. No rectal bleeding, intermittent black stool. None recently. GENITOURINARY: No dysuria or hematuria. MUSCULOSKELETAL: Reports normal range of motion., Joint pain. SKIN: No rashes. No jaundice. ENDOCRINE: No chills, fevers. No excessive weight gain or loss. No polydipsia or polyuria. PSYCHIATRIC: Unremarkable. NEUROLOGY: No change in mental status. Dizziness with movements. ENT: Vision unremarkable. CONSTITUTIONAL: No recent weight loss. No fever, chills, night sweats. Past Medical History Past Medical History: Blood Disorder, Cancer, GERD/Reflux, Hyperlipidemia, Hypertension, Osteoarthritis (OA) Additional Past Medical History / Comment(s): Current SOB, SEVERE IRON DEFICIENCY ANEMIA-iron infusions q 2-3 months, last July 16. Hx CERVICAL CA with radiation in 1979, heart murmur, urinary incontinence, bronchitis X3 in last yr. History of Any Multi-Drug Resistant Organisms: None Reported Past Surgical History: Bariatric Surgery, Bladder Surgery, Hernia Repair, Joint Replacement, Orthopedic Surgery, Tonsillectomy Additional Past Surgical History / Comment(s): RT SHOULDER ROTATOR CUFF x 2, LAP BAND, RT knee replacement, BLADDER SUSP, EUGENIA carpal tunnel, EUGENIA CATARACT, PANNICULECTOMY, COLONOSCOPY, trigger finger X3-4. Past Anesthesia/Blood Transfusion Reactions: Previous Problems w/ Anesthesia Additional Past Anesthesia/Blood Transfusion Reaction / Comm: STATES HAD RESPIRATORY ISSUES/COUGHING POST OP, O2 SAT LOW(HAD BLOCK IN NECK) with PAST ROTATOR CUFF SX, 2ND SHOULDER SURGERY HAD NO PROBLEMS. Past Psychological History: No Psychological Hx Reported Smoking Status: Never smoker - Past Family History Mother Family Medical History: No Reported History Additional Family Medical History / Comment(s): LUNG CA Medications and Allergies Home Medications Medication Instructions Recorded Confirmed Type Lisinopril-Hctz 20-12.5 mg 1 tab PO DAILY 04/30/14 02/19/21 History [Zestoretic 20-12.5] Omeprazole [PriLOSEC] 20 mg PO DAILY 04/12/20 02/19/21 History Biotin 5 mg PO DAILY 02/19/21 02/19/21 History Cholecalciferol [Vitamin D3 (125 125 mcg PO DAILY 02/19/21 02/19/21 History Mcg = 5000 Iu)] Cyclobenzaprine [Flexeril] 5 mg PO DAILY PRN 02/19/21 02/19/21 History Ferrous Sulfate 75 mg PO DAILY 02/19/21 02/19/21 History Meclizine HCl 25 mg PO TID PRN 02/19/21 02/19/21 History Allergies Allergy/AdvReac Type Severity Reaction Status Date / Time Sulfa (Sulfonamide Allergy Anaphylaxis Verified 02/19/21 11:07 Antibiotics) Physical Exam Vitals: Vital Signs Temp Pulse Pulse Pulse Resp BP BP 02/20/21 07:00 97.8 F 60 17 120/75 02/20/21 02:52 123/68 02/20/21 02:05 77 62 18 02/20/21 01:23 97.9 F 62 18 94/54 02/19/21 19:42 98.0 F 77 18 02/19/21 19:38 77 18 02/19/21 15:47 18 02/19/21 15:43 97.8 F 77 20 02/19/21 15:35 97.8 F 77 18 02/19/21 13:04 98.8 F 72 18 121/81 BP Pulse Ox 02/20/21 07:00 97 02/20/21 02:52 02/20/21 02:05 02/20/21 01:23 97 02/19/21 19:42 117/80 96 02/19/21 19:38 02/19/21 15:47 02/19/21 15:43 125/61 02/19/21 15:35 125/61 98 02/19/21 13:04 99 Intake and Output 02/19/21 02/20/21 02/20/21 22:59 06:59 14:59 Intake Total 118 Balance 118 Intake: Oral 118 Other: Voiding Method Toilet Toilet # Voids 1 2 Weight 117.934 kg General appearance: The patient is alert, oriented, appears in no acute distress. HET: Head is normocephalic and atraumatic. Conjunctiva pink. Sclera anicteric. Neck: Supple without lymphadenopathy. Trachea midline. Heart: S1 S2. Regular rate and rhythm. Lungs: Clear to auscultation. Abdomen: Soft, nontender, nondistended with bowel sounds. No guarding or rigidity. Skin: No rashes. No jaundice. Extremities: Normal skin color and turgor. No pedal edema. Neurological: No focal deficits. Alert and oriented x3. Results CBC & Chem 7: 02/20/21 07:02 02/20/21 07:02 Labs: Abnormal Lab Results - Last 24 Hours (Table) 02/19/21 02/19/21 Range/Units 10:04 10:04 Hgb 11.1 L (11.4-16.0) gm/dL MCV 75.4 L (80.0-100.0) fL MCH 22.0 L (25.0-35.0) pg MCHC 29.2 L (31.0-37.0) g/dL RDW 17.6 H (11.5-15.5) % D-Dimer 0.92 H (<0.60) mg/L FEU Assessment and Plan (1) Chronic iron deficiency anemia Narrative/Plan: This is 75-year-old female with a past medical history of chronic iron deficiency anemia and AVMs. Patient states she's been having complaints of shortness of breath especially with exertion since around December. States she has been following closely with her PCP and getting her IV iron infusions every 6 weeks. She went into the office and had out patient blood work that showed a hemoglobin of 10 and was told to come to the emergency department for further evaluation of possible GI bleed. Patient states she has intermittent black stool none currently. She denies any bright red blood per rectum, nausea, vomiting, or abdominal pain. Patient states she does get dizzy with movement especially with turning her head. She is not on any anticoagulation. She does take oral iron as well as her iron infusions. On admission she had a WBC 6.9 hemoglobin 11.1 hematocrit 37 platelet count 276,000, INR 1.0 total bilirubin 0.9 AST 32 ALT 24 alkaline phosphatase 117. She had a repeat labs showing a hemoglobin today of 10.1. Stool occult blood was negative. She does have a history of AVMs with her last EGD and colonoscopy done in May 2020 and June 2020 respectively. When it patient underwent EGD by Dr. 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 Small hiatal hernia. She also underwent a colonoscopy by Dr. Dixon showing for scattered AVMs in the base of the cecum treated with argon plasma with good hemostasis and scattered sigmoid diverticulosis. Patient states her last iron infusion was approximately 2 weeks ago. Current Visit: Yes Status: Acute Code(s): D50.9 - IRON DEFICIENCY ANEMIA, UNSPECIFIED SNOMED Code(s): 14158846 (2) History of GI bleed Current Visit: Yes Status: Acute Code(s): Z87.19 - PERSONAL HISTORY OF OTHER DISEASES OF THE DIGESTIVE SYSTEM SNOMED Code(s): 369132603 Plan: 1. Continue symptomatic and supportive care 2. Daily CBC 3. Continue oral iron 4. Diet as tolerated 5. No plan on endoscopic evaluation at this time 6. Continue further workup per primary medicine team for shortness of breath and dizziness Thank you for this consultation, we will continue to follow. Dr. Opal Dixon I agree with the dictator's note, documented as a scribe by Frida Bentley.
--- NOTE | 2021-02-20 15:30 | P.PN ---
Subjective Progress Note Date: 02/20/21 History of Presenting Illness: Patient is a very pleasant 75-year-old female with a past medical history of AVMs, hypertension, and severe iron deficiency anemia requiring frequent blood transfusions. She presented to the emergency department with a chief complaint of shortness of breath, dizziness, lightheadedness, and intermittent black tarry stools. She underwent full evaluation in the emergency department. Labs completed revealing macrocytic microchromic anemia with hemoglobin of 11.1 and an elevated d-dimer of 0.92. Occult stool was negative and Covid PCR was negative. A chest x-ray was completed negative for acute cardiopulmonary process revealing mild cardiomegaly. CT completed negative for acute cardiopulmonary process and negative for pulmonary embolism revealing evidence of old granulomatous disease. EKG revealed normal sinus rhythm at 81 bpm with PACs, no noted T-wave or ST abnormalities. Patient was admitted under our services with consultation to GI. Patient seen and fully evaluated at the bedside, she reports she has been experiencing increased weakness, dizzinesslightheadedness, and dyspnea with exertion over the past 2 weeks. She reports in addition to this she has also been having intermittent episodes of dark black tarry stools accompanied by a one-time episode of bright red blood in stool. She denies having any fever, chills, diaphoresis, chest pain, palpitations, abdominal pain, nausea, vomiting, changes in appetite or unintended weight loss, or experiencing any numbness/tingling/weakness in her extremities. Patient states that she was concerned as she has had at least 9 previous AVMs repaired by Dr. Dixon during previous endoscopies and colonoscopies. Review of systems: Pertinent positives and negatives as discussed in HPI, a complete review of systems was performed and all other systems are negative. Physical exam: Patient was seen and fully evaluated at the bedside this morning. She reports having 1 bowel movement yesterday evening and stated she noticed a black streak on her brief this morning. She also reports continued dizziness/lightheadedness. We will add on orthostatic vitals to assess. Gastroenterology consulted awaiting recommendations. Patient continues to deny having any headache, changes in vision, changes in hearing or tinnitus, chest pain or palpitations, shortness of breath, abdominal pain, nausea, or vomiting. Morning hemoglobin is stable at 10.1. Vital signs reviewed and stable. General: Nontoxic, no distress and appears stated age. Derm: Skin warm and dry, normal coloration for ethnicity. Head: Atraumatic, normocephalic and symmetric. Eyes: EOMs intact, no lid lag, and anicteric sclera Mouth: no lip lesions, mucus membranes moist Cardiovascular: regular rate and rhythm with normal S1S2, grade 3 systolic murmur, positive posterior tibial pulses bilaterally, and cap refill < 2 seconds. Lungs: Respirations even, regular, and unlabored on room air. Lungs CTA bilater ally, no rhonchi, no rales, no wheezing, and no accessory muscle usage. Abdominal: soft, nontender to palpation, no guarding, no appreciable organomegaly Ext: ROM intact. No gross muscle atrophy, 1+ pitting, no contractures Neuro: Speech clear, face symmetrical and CN II-XII grossly intact with no noted focal neuro deficits Psych: Alert and oriented to person, place, time, and situation. Appropriate and pleasant affect. Assessment and Plan of Care: Lower GI bleed with reports of melena Dizziness/lightheadedness Iron deficiency anemia -Consult Gastroenterology, appreciate recommendations -Continue to monitor H&H closely and transfuse as needed for hemoglobin less than 7. -Protonix 40 mg IVP twice daily. -Continue ferrous sulfate 5 mg daily. -Nothing by mouth until cleared by GI. -SCDs for DVT prophylaxis. Hypertension Monitor vital signs and continue daily medication regimen with lisinopril/hydrochlorothiazide. Incidental finding on CT revealed old granulomatous disease -Recommend patient to follow up outpatient with communications department chair to establish care and for long-term monitoring and management as this could place her at an increased risk for development of bacterial or fungal lung infections in the future. CODE STATUS: Full code DVT prophylaxis: SCDs Discussed with: Patient and RN Anticipated discharge date: Clinical course to determine, likely 1-[address]: Home A total of 40 minutes was spent on the care of this complex patient more than 50% of the time was spent in counseling and care coordination. Objective - Vital Signs Vital signs: Vital Signs Temp 97.8 F 02/20/21 07:00 Pulse 60 02/20/21 07:00 Resp 17 02/20/21 07:00 BP 120/75 02/20/21 07:00 Pulse Ox 97 02/20/21 07:00 Intake & Output 02/19/21 02/20/21 02/20/21 18:59 06:59 18:59 Intake Total 118 Balance 118 Weight 117.934 kg Intake: Oral 118 Other: Voiding Method Toilet # Voids 2 - Labs CBC & Chem 7: 02/20/21 07:02 02/20/21 07:02 Labs: Abnormal Lab Results - Last 24 Hours (Table) 02/19/21 02/19/21 Range/Units 10:04 10:04 Hgb 11.1 L (11.4-16.0) gm/dL MCV 75.4 L (80.0-100.0) fL MCH 22.0 L (25.0-35.0) pg MCHC 29.2 L (31.0-37.0) g/dL RDW 17.6 H (11.5-15.5) % D-Dimer 0.92 H (<0.60) mg/L FEU
[2021-02-21] MEDS: FERROUS SULFATE DROPS 750 MG/50 ML BOTTLE PO SCH (07:21)
[2021-02-21] MEDS: CHOLECALCIFEROL 125 MCG (5000 IU) TABLET PO SCH (07:22)
[2021-02-21] MEDS: LISINOPRIL-HCTZ 20-12.5 MG 1 EACH TAB PO SCH (07:22)
[2021-02-21] MEDS: PANTOPRAZOLE 40 MG TABLET PO SCH (07:22)
[2021-02-21 10:39] LABS: HCT 36.2 % (37.2-46.3); HGB 10.1 g/dL (12.0-15.0); MCH 21.1 pg (27.0-32.0); MCHC 27.9 g/dL (32.0-37.0); MCV 75.7 fL (80.0-97.0); Mean Platelet Volume 10.2 fL (9.5-12.2); Platelet Count 226 X 10*3/uL (140-440); RBC 4.78 X 10*6/uL (4.10-5.20); RDW 19.1 % (11.5-14.5); WBC 5.43 X 10*3/uL (4.50-10.00)
--- NOTE | 2021-02-21 11:20 | P.PN ---
<Vijay Adorno - Last Filed: 02/21/21 11:11> Subjective Progress Note Date: 02/21/21 History of Presenting Illness: Patient is a very pleasant 75-year-old female with a past medical history of AVMs, hypertension, and severe iron deficiency anemia requiring frequent blood transfusions. She presented to the emergency department with a chief complaint of shortness of breath, dizziness, lightheadedness, and intermittent black tarry stools. She underwent full evaluation in the emergency department. Labs completed revealing macrocytic microchromic anemia with hemoglobin of 11.1 and an elevated d-dimer of 0.92. Occult stool was negative and Covid PCR was negative. A chest x-ray was completed negative for acute cardiopulmonary process revealing mild cardiomegaly. CT completed negative for acute cardiopulmonary process and negative for pulmonary embolism revealing evidence of old granulomatous disease. EKG revealed normal sinus rhythm at 81 bpm with PACs, no noted T-wave or ST abnormalities. Patient was admitted under our services with consultation to GI. Patient seen and fully evaluated at the bedside, she reports she has been experiencing increased weakness, dizzinesslightheadedness, and dyspnea with exertion over the past 2 weeks. She reports in addition to this she has also been having intermittent episodes of dark black tarry stools accompanied by a one-time episode of bright red blood in stool. She denies having any fever, chills, diaphoresis, chest pain, palpitations, abdominal pain, nausea, vomiting, changes in appetite or unintended weight loss, or experiencing any numbness/tingling/weakness in her extremities. Patient states that she was concerned as she has had at least 9 previous AVMs repaired by Dr. Dixon during previous endoscopies and colonoscopies. Physical exam: Patient was seen and fully evaluated at the bedside this morning. She is scheduled to undergo EGD later this afternoon with gastroenterology. Morning hemoglobin stable at 10.1. Patient reports improvement in dizziness/lightheadedness but states she really hasn't been up and about and she denies having any further episodes of melena and continues to deny having any other complaints including headache, changes in vision, changes in hearing or tinnitus, chest pain or palpitations, shortness of breath, abdominal pain, nausea, or vomiting. Vital signs reviewed and stable. General: Nontoxic, no distress and appears stated age. Derm: Skin warm and dry, normal coloration for ethnicity. Head: Atraumatic, normocephalic and symmetric. Eyes: EOMs intact, no lid lag, and anicteric sclera Mouth: no lip lesions, mucus membranes moist Cardiovascular: regular rate and rhythm with normal S1S2, grade 3 systolic murmur, positive posterior tibial pulses bilaterally, and cap refill < 2 seconds. Lungs: Respirations even, regular, and unlabored on room air. Lungs CTA bilaterally, no rhonchi, no rales, no wheezing, and no accessory muscle usage. Abdominal: soft, nontender to palpation, no guarding, no appreciable organomegaly Ext: ROM intact. No gross muscle atrophy, 1+ pitting, no contractures Neuro: Speech clear, face symmetrical and CN II-XII grossly intact with no noted focal neuro deficits Psych: Alert and oriented to person, place, time, and situation. Appropriate and pleasant affect. Assessment and Plan of Care: Lower GI bleed with reports of melena Dizziness/lightheadedness Iron deficiency anemia -Consult Gastroenterology, appreciate recommendations -Continue to monitor H&H closely and transfuse as needed for hemoglobin less than 7. -Patient scheduled to undergo EGD later this afternoon -Protonix 40 mg IVP twice daily. -Continue ferrous sulfate 5 mg daily. -Nothing by mouth until cleared by GI. -SCDs for DVT prophylaxis. -Iron panel was ordered Hypertension Monitor vital signs and continue daily medication regimen with lisinopril/hydrochlorothiazide. Incidental finding on CT revealed old granulomatous disease -Recommend patient to follow up outpatient with groundskeeping maintenance to establish care and for long-term monitoring and management as this could place her at an increased risk for development of bacterial or fungal lung infections in the fut ure. CODE STATUS: Full code DVT prophylaxis: SCDs Discussed with: Patient and RN Anticipated discharge date: Likely tomorrow morning pending results of EGD and iron panel Anticipated discharge place: Home A total of 35 minutes was spent on the care of this complex patient more than 50% of the time was spent in counseling and care coordination. Objective - Vital Signs Vital signs: Vital Signs Temp 98.7 F 02/21/21 07:00 Pulse 64 02/21/21 07:00 Resp 18 02/21/21 07:00 BP 129/80 02/21/21 07:00 Pulse Ox 93 L 02/21/21 07:00 Intake & Output 02/20/21 02/21/2102/21/22 18:59 06:59 18:59 Intake Total 1636 Balance 1636 Intake: Oral 1636 Other: Voiding Method Toilet # Voids 1 3 - Labs CBC & Chem 7: 02/21/21 07:54 02/20/21 07:02 Labs: Abnormal Lab Results - Last 24 Hours (Table) 02/20/21 Range/Units 07:02 Hgb 10.1 L (12.0-15.0) g/dL Hct 36.4 L (37.2-46.3) % MCV 76.2 L (80.0-97.0) fL MCH 21.1 L (27.0-32.0) pg MCHC 27.7 L (32.0-37.0) g/dL RDW 19.1 H (11.5-14.5) % Lymphocytes # 0.84 L (0.90-5.00) X 10*3/uL <Petty Burnett - Last Filed: 02/22/21 10:51> Subjective agree with note and plan Objective - Vital Signs Vital signs: Vital Signs Temp 98.6 F 02/21/21 15:00 Pulse 66 02/21/21 15:00 Resp 16 02/21/21 15:00 BP 134/71 02/21/21 15:00 Pulse Ox 94 L 02/21/21 15:00 Intake & Output 02/21/21 02/22/21 02/22/21 18:59 06:59 18:59 Intake Total 300 Balance 300 Intake: IV 300 Other: Voiding Method Toilet # Voids 3 - Labs CBC & Chem 7: 02/21/21 07:54 02/20/21 07:02
[2021-02-21] MEDS ORDERED: KETAMINE 10 MG/ML 20 ML VIAL ONE (12:15)
[2021-02-21] MEDS ORDERED: PROPOFOL 10 MG/ML 20 ML VIAL IV ONE (12:15)
[2021-02-21] MEDS ORDERED: LIDOCAINE 1% INJ 10MG/ML (20 ML MDV) ONE (12:15)
[2021-02-21] MEDS ORDERED: SODIUM CHLORIDE 0.9% 500 ML 500 ML IV ONE (12:21)
--- NOTE | 2021-02-21 12:42 | P.PCN ---
Date of Procedure: 02/21/21 Procedure(s) Performed: BRIEF HISTORY: Patient is a 75-year-old, pleasant, white female scheduled for an upper endoscopy as a part of evaluation of form mild anemia and intermittent black tarry stools for the last 2 months duration. Patient had previous EGD and colonoscopy in May 2020 that showed duodenal and cecal angiectasia.. She has prior history of gastric lap band surgery and his PROCEDURE PERFORMED: Esophagogastroduodenoscopy with argon plasma coagulation. PREOPERATIVE DIAGNOSIS: Mild iron deficiency anemia and black tarry stools. IV sedation per anesthesia. PROCEDURE: After informed consent was obtained, the patient was brought into the endoscopy unit. IV sedation was administered by Anesthesia under continuous monitoring. Initially the Olympus GIF-140 video endoscope was inserted into the mouth. Esophagus intubated without any difficulty. It was gradually advanced into the stomach and duodenum and carefully examined. The bulb and the second part of the duodenum. 3 nonbleeding scattered angiectasia which were coagulated using argon plasma. The scope at this time was withdrawn to the stomach, adequately insufflated with air, and upon careful examination, mucosa of the antrum, body, cardia and the fundus appeared normal. There was evidence of gastric lap band surgery noted. The scope was then withdrawn into the esophagus. The GE junction was located at 39 cm from the incisors. Small hiatal hernia noted. The esophagus appeared slightly dilated. There were no erosions or ulcerations seen and the patient tolerated the procedure well. IMPRESSION: 1. 3 small nonbleeding duodenal angiectasia status post argon plasma coagulation as described above. 2. Small hiatal hernia and evidence of gastric lap band surgery with slightly dilated esophagus. RECOMMENDATIONS: The findings of this examination were discussed with the patient as well as a family. She was advised to monitor CBC and outpatient basis. Continue iron supplements. Advance diet as tolerated and she can be discharged home today..
--- NOTE | 2021-02-21 14:49 | P.DS ---
<Vijay Adorno - Last Filed: 02/21/21 14:38> Providers Expected date of discharge: 02/21/21 Hospital Course: Discharge Diagnosis: Lower GI bleed with reports of melena, resolved. Patient underwent endoscopy and cleared by GI for discharge at this time. Dizziness/lightheadedness, resolved/improved. Continue to take meclizine as needed. Iron deficiency anemia, continue to follow up outpatient with hematology for monitoring and transfusions as needed. Hypertension, continue daily medication regimen with lisinopril/hydrochlorothiazide. Incidental finding on CT revealed old granulomatous disease, Recommend patient to follow up outpatient with bindery machine operator to establish care and for long-term monitoring and management as this could place her at an increased risk for development of bacterial or fungal lung infections in the future. Hospital Course: Patient is a very pleasant 75-year-old female with a past medical history of AVMs, hypertension, and severe iron deficiency anemia requiring frequent blood transfusions. She presented to the emergency department with a chief complaint of shortness of breath, dizziness, lightheadedness, and intermittent black tarry stools. Patient states that she was concerned as she has had at least 9 previous AVM[address] repaired by Dr. Dixon during previous endoscopies and colonoscopies. She underwent full evaluation in the emergency department. Labs completed revealing macrocytic microchromic anemia with hemoglobin of 11.1 and an elevated d-dimer of 0.92. Occult stool was negative and Covid PCR was negative. A chest x-ray was completed negative for acute cardiopulmonary process revealing mild cardiomegaly. CT completed negative for acute cardiopulmonary process and negative for pulmonary embolism revealing evidence of old granulomatous disease. EKG revealed normal sinus rhythm at 81 bpm with PACs, no noted T-wave or ST abnormalities. Patient was admitted under our services with consultation to GI. Blood work was monitored closely and hemoglobin stable. Patient underwent EGD with leach cell operator, Dr. Dixon. 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 GI recommending patient follow-up outpatient and continue iron supplements. Patient is tolerating oral intake and is cleared for discharge home at this time. Patient to follow up as recommended with PCP, gastroenterology, hematology, and pulmonology. A total of 45 minutes of time were spent preparing this complex discharge s ummary. Patient Condition at Discharge: Stable Plan - Discharge Summary Discharge Rx Participant: Yes New Discharge Prescriptions: Continue Lisinopril-Hctz 20-12.5 mg [Zestoretic 20-12.5] 1 tab PO DAILY Omeprazole [PriLOSEC] 20 mg PO DAILY Ferrous Sulfate 75 mg PO DAILY Biotin 5 mg PO DAILY Cholecalciferol [Vitamin D3 (125 Mcg = 5000 Iu)] 125 mcg PO DAILY Meclizine HCl 25 mg PO TID PRN PRN Reason: dizziness Cyclobenzaprine [Flexeril] 5 mg PO DAILY PRN PRN Reason: Muscle Pain Discharge Medication List Lisinopril-Hctz 20-12.5 mg [Zestoretic 20-12.5] 1 tab PO DAILY 04/30/14 [History] Omeprazole [PriLOSEC] 20 mg PO DAILY 04/12/20 [History] Biotin 5 mg PO DAILY 02/19/21 [History] Cholecalciferol [Vitamin D3 (125 Mcg = 5000 Iu)] 125 mcg PO DAILY 02/19/21 [History] Cyclobenzaprine [Flexeril] 5 mg PO DAILY PRN 02/19/21 [History] Ferrous Sulfate 75 mg PO DAILY 02/19/21 [History] Meclizine HCl 25 mg PO TID PRN 02/19/21 [History] Follow up Appointment(s)/Referral(s): Solitario Price MD [Primary Care Provider] - 1-2 days Rena Dixon MD [STAFF PHYSICIAN] - 03/05/21 4:00 pm Mago Guy MD [STAFF PHYSICIAN] - 03/12/21 3:15 pm (Appt with Oliva Land) Patient Instructions/Handouts: Iron Deficiency Anemia (GEN), Upper Endoscopy (GEN) Activity/Diet/Wound Care/Special Instructions: Activity: As tolerated. Take breaks as needed. Diet: Heart healthy and carb consistent diet. Avoid salts, or foods with hidden salts such as canned or boxed foods and frozen dinners. Extra salt makes your heart work harder and traps the fluid in your body for longer. Special Instructions: Take all of your medications as directed and remember to keep all of your doctor's appointments and follow-up as needed. A CT scan of your chest revealed findings of old granulomatous disease, this could place you at an increased risk for development of bacterial or fungal lung infections such as pnumonia in the future. It is important to establish care with a bindery machine operator for terminal manager monitoring and managment if needed. Wishing you a very happy and healthy New Year!!! Thank you for allowing us to participate in your care, it was truly a pleasure having you for our patient!!! Discharge Disposition: HOME SELF-CARE <Petty Burnett - Last Filed: 02/22/21 10:45> Providers Date of admission: 02/21/21 08:16 Attending physician: Darinel Kan MD Consults: 02/19/21 13:36 Consult Physician Routine Consulting Provider: Rena Dixon Consult Reason/Comments: history of gi bleed Do you want consulting provider notified?: Yes, Notify in am Primary care physician: Solitario Price
[2021-02-21 16:18] VITALS: BP 134/71; PULSE 66; RESP 16; TEMP 98.6
== END 2021-02-21 15:46 | disposition home or self-care (01) | DRG 379 ==
LOC: EC 09:21 → 6NMEDSUR 13:34 → OBSVTOIN 02-21 08:16
PROVIDERS: ADMIT Internal Medicine; ATTEND Internal Medicine
PROC: 0W3P8ZZ Control Bleeding in Gastrointestinal Tract, Via Natural or Artificial Opening Endoscopic (ICD-10-PCS; principal; 2021-02-21 07:50)
DX: K31.811 Angiodysplasia of stomach and duodenum with bleeding (principal); K57.30 Diverticulosis of large intestine without perforation or abscess without bleeding; K44.9 Diaphragmatic hernia without obstruction or gangrene; K22.89 Other specified disease of esophagus; Z20.822 Contact with and (suspected) exposure to COVID-19; K21.9 Gastro-esophageal reflux disease without esophagitis; R42 Dizziness and giddiness; D50.9 Iron deficiency anemia, unspecified; I10 Essential (primary) hypertension; E78.5 Hyperlipidemia, unspecified; M19.90 Unspecified osteoarthritis, unspecified site; Z88.2 Allergy status to sulfonamides; Z87.19 Personal history of other diseases of the digestive system; Z80.1 Family history of malignant neoplasm of trachea, bronchus and lung; Z85.41 Personal history of malignant neoplasm of cervix uteri; Z92.3 Personal history of irradiation; Z96.651 Presence of right artificial knee joint; Z98.84 Bariatric surgery status; Z98.42 Cataract extraction status, left eye; Z98.41 Cataract extraction status, right eye
CPT/HCPCS: 36415; 43270; 71046; 71275; 80048; 80053; 82272; 83735; 83880; 84484; 85025; 85027; 85379; 85610; 85730; 87635; 93005; 96360; 99285

== ENCOUNTER → 2021-05-16 | Outpatient (CLI) | payer MEDICARE, OTHER ==
--- NOTE | 2021-05-19 11:48 | MM ---
Reason for exam: screening (asymptomatic). Last mammogram was performed 2 years and 3 months ago. History: Patient is postmenopausal and has history of other cancer at age 33. Physical Findings: A clinical breast exam by your physician is recommended on an annual basis and results should be correlated with mammographic findings. MG 3D Screening Mammo W/Cad Bilateral CC and MLO view(s) were taken. Prior study comparison: February 13, 2019, bilateral MG 3d screening mammo w/cad. November 10, 2017, bilateral MG 3d screening mammo w/cad. There are scattered fibroglandular densities. Stable benign calcifications. There is no discrete abnormality. No significant changes when compared with prior studies. ASSESSMENT: Benign, BI-RAD 2 RECOMMENDATION: Routine screening mammogram of both breasts in 1 year.
== END | disposition home or self-care (01) ==
LOC: RADMAMWWP 12:19
PROVIDERS: ATTEND Family Medicine
DX: Z12.31 Encounter for screening mammogram for malignant neoplasm of breast (principal)
CPT/HCPCS: 77063; 77067

== ENCOUNTER → 2021-05-21 | Outpatient (CLI) | payer MEDICARE, OTHER ==
[~2021-05-21] MED LIST changes: -ALPRAZolam 0.25 MG TAB PO PRN; -ALPRAZolam 0.5 MG TAB PO PRN; -ASPIRIN 325 MG TAB PO STA; -ATORVASTATIN 80 MG TAB PO STA; +IRON DEXTRAN 100 MG/2 ML VIAL IV ONE; +IRON DEXTRAN 975 MG in SODIUM CHLORIDE 0.9% 250 ML IV ONE; -NITROGLYCERIN SL TABS 0.4 MG TAB SUBLINGUAL PRN; -SODIUM CHLORIDE 0.9% 1,000 ML in EMPTY BAG 1 BAG IV ONE; +SODIUM CHLORIDE 0.9% 500 ML 500 ML in EMPTY BAG 1 BAG IV PRN
[2021-05-21 13:46] VITALS: RESP 16
[2021-05-21 14:03] VITALS: BP 122/80; PULSE 65; TEMP 98.1
== END | disposition home or self-care (01) ==
LOC: PROCWHC3 11:58
PROVIDERS: ATTEND Physician Assistant Medical
DX: R79.0 Abnormal level of blood mineral (principal)
CPT/HCPCS: 96365; 96375; J1750

== ENCOUNTER → 2021-08-01 | Outpatient (CLI) | payer MEDICARE, OTHER ==
[2021-08-01 08:44] VITALS: BP 145/99; PULSE 81; RESP 16; TEMP 98
== END ==
LOC: PROCWHC3 08:05 → EDSTATUS 08:30
PROVIDERS: ATTEND Physician Assistant Medical
DX: D50.9 Iron deficiency anemia, unspecified (principal); Z88.2 Allergy status to sulfonamides
CPT/HCPCS: 96365; 96375; J1750

== ENCOUNTER → 2022-04-28 | Outpatient (CLI) | payer MEDICARE, OTHER ==
[2022-04-28 13:00] LABS: African American GFR (CKD) >90 (>60 ml/min/1.73 sqM); Blood Urea Nitrogen 17 mg/dL (7-17); Non-African American GFR(CKD) 83 (>60 ml/min/1.73 sqM)
--- NOTE | 2022-04-28 14:09 | CT ---
EXAMINATION TYPE: CT angio chest CT DLP: 1533 mGycm, Automated exposure control for dose reduction was used. DATE OF EXAM: 04/28/2022 1:49 PM COMPARISON: CTA chest 02/19/2021. CLINICAL INDICATION:Female, 76 years old with history of I71.20; thoracic aneursym w/o rupture TECHNIQUE/CONTRAST: CTA scan of the thorax is performed before and after the uneventful administration of 100 mL Isovue-3 70 intravenously. MIP images are created and reviewed. FINDINGS: Lungs/Pleura: No evidence of focal consolidation, pleural effusion or pneumothorax. Few scattered ebenezer cified granulomas. Stable 5 mm right mid lung nodule which appears to correspond in the minor fissure favored to represent intrafissural lymph node. No new or enlarging pulmonary nodules. Airway: Large airways are patent. Heart: Heart is within normal limits for size.. Vasculature: No evidence of aortic aneurysm. No evidence for intramural hematoma or aortic dissection . Ascending thoracic aorta measures 2.5 cm in diameter. The ascending thoracic aorta measures 3.6 cm in diameter. Mediastinum: No gross evidence of adenopathy. Musculoskeletal: No acute osseous abnormalities. Moderate to severe multilevel spurring in the spine with underlying scoliotic curvature. Soft Tissues: Unremarkable. Lower neck: No significant findings. Upper Abdomen: Small size hiatal hernia. Mild fluid-filled distal patulous esophagus. Evaluate for re flux/esophagitis. Gastric lap band device is noted below the diaphragm in satisfactory position. Mult iple small calcified granulomas within the spleen. Postcholecystectomy changes. Stable partially exop hytic thin-walled cyst posteriorly from the upper pole the left kidney. Similar hypodensity is demons trated within the right kidney which are too small to characterize but likely represents cysts. Parti al visualization epigastric ventral wall hernia containing a few mesenteric vessels and the stomach a butting the defect. Stable 2.0 cm left adrenal gland benign lipid rich adrenal adenoma. IMPRESSION: 1. No acute thoracic process. 2. No evidence for thoracic aortic aneurysm, dissection, or intramural hematoma. 3. Sequelae of prior granulomatous disease.
== END | disposition home or self-care (01) ==
LOC: RADCTMAIN 12:01
PROVIDERS: ATTEND Family Medicine
DX: I71.20 Thoracic aortic aneurysm, without rupture, unspecified (principal); I10 Essential (primary) hypertension
CPT/HCPCS: 82565; 84520; 71275; 36415; Q9967

== ENCOUNTER 2022-05-27 15:07 | Emergency (ER) | payer MEDICARE, OTHER ==
[2022-05-27 15:18] VITALS: BP 152/98; PULSE 86; RESP 20; TEMP 98.4
--- NOTE | 2022-05-27 17:04 | ED ---
GI Bleed HPI - General Chief complaint: GI Bleed Stated complaint: SOB Time Seen by Provider: 05/27/22 16:35 Source: patient Mode of arrival: ambulatory Limitations: no limitations - History of Present Illness Initial comments: This patient is a 76-year-old woman with history of previous GI bleeds related to AV malformation. She states she has been having problems like this going back 8 years intermittently. This episode began about 2 weeks ago, she noticed she was having dark tarry stools. She states that she saw her physician and they did give her iron infusion and were attempting to get her into see Dr. Dixon as an outpatient, but she is starting to experience some exertional dyspnea and the tanning wheel filler is not able to see her for about a month. Her physician advised her to come emergency department. The patient is not having any abdominal pain. She is having some exertional dyspnea but no dyspnea at rest. No lightheadedness or diaphoresis. No chest pain. MD complaint: melena Onset/Timin -: week(s) Radiation: none Severity scale (1-10): 0 Quality: painless Improves with: none Worsens with: none Context: history of GI bleed Associated Symptoms: denies other symptoms Treatments Prior to Arrival: none - Related Data Home Medications Medication Instructions Recorded Confirmed Lisinopril-Hctz 10-12.5 mg 1 tab PO DAILY 05/27/22 05/27/22 [Zestoretic 10-12.5] Omeprazole 40 mg PO DAILY 05/27/22 05/27/22 amLODIPine [Norvasc] 5 mg PO HS 05/27/22 05/27/22 Allergies Allergy/AdvReac Type Severity Reaction Status Date / Time Sulfa (Sulfonamide Allergy Anaphylaxis Verified 05/27/22 18:57 Antibiotics) Review of Systems ROS Statement: Those systems with pertinent positive or pertinent negative responses have been documented in the HPI. ROS Other: All systems not noted in ROS Statement are negative. Constitutional: Denies: fever, chills Respiratory: Denies: cough, dyspnea Cardiovascular: Denies: chest pain, palpitations, edema Gastrointestinal: Reports: melena. Denies: abdominal pain, vomiting, diarrhea, hematochezia Genitourinary: Denies: dysuria, hematuria Musculoskeletal: Denies: back pain Skin: Denies: rash Neurological: Denies: headache, weakness Past Medical History Past Medical History: Blood Disorder, Cancer, GERD/Reflux, Hyperlipidemia, Hypertension, Osteoarthritis (OA) Additional Past Medical History / Comment(s): Current SOB, SEVERE IRON DEFICIENCY ANEMIA-iron infusions q 2-3 months, last July 16. Hx CERVICAL CA with radiation in 1979, heart murmur, urinary incontinence, bronchitis X3 in last yr. History of Any Multi-Drug Resistant Organisms: None Reported Past Surgical History: Bariatric Surgery, Bladder Surgery, Hernia Repair, Joint Replacement, Orthopedic Surgery, Tonsillectomy Additional Past Surgical History / Comment(s): RT SHOULDER ROTATOR CUFF x 2, LAP BAND, RT knee replacement, BLADDER SUSP, EUGENIA carpal tunnel, EUGENIA CATARACT, PANNICULECTOMY, COLONOSCOPY, trigger finger X3-4. Past Anesthesia/Blood Transfusion Reactions: Previous Problems w/ Anesthesia Additional Past Anesthesia/Blood Transfusion Reaction / Comment(s): STATES HAD RESPIRATORY ISSUES/COUGHING POST OP, O2 SAT LOW(HAD BLOCK IN NECK) with PAST ROTATOR CUFF SX, 2ND SHOULDER SURGERY HAD NO PROBLEMS. Past Psychological History: No Psychological Hx Reported Smoking Status: Never smoker Past Alcohol Use History: None Reported Past Drug Use History: None Reported - Past Family History Mother Family Medical History: No Reported History Additional Family Medical History / Comment(s): LUNG CA General Exam Limitations: no limitations General appearance: alert, in no apparent distress Head exam: Present: atraumatic, normocephalic Eye exam: Present: normal appearance. Absent: scleral icterus, conjunctival injection Neck exam: Present: normal inspection, full ROM Respiratory exam: Present: normal lung sounds bilaterally. Absent: respiratory distress, wheezes, rales, rhonchi, stridor Cardiovascular Exam: Present: regular rate, normal rhythm, normal heart sounds. Absent: systolic murmur, diastolic murmur, rubs, gallop GI/Abdominal exam: Present: soft. Absent: distended, tenderness, guarding, rebound, rigid, mass Extremities exam: Present: normal inspection, normal capillary refill. Absent: pedal edema, calf tenderness Back exam: Present: normal inspection. Absent: CVA tenderness (R), CVA tenderness (L) Neurological exam: Present: alert Skin exam: Present: warm, dry, intact, normal color. Absent: rash Course Vital Signs 05/27/22 15:16 Temperature 98.4 F Pulse Rate 86 Respiratory 20 Rate Blood Pressure 152/98 O2 Sat by Pulse 100 Oximetry Medical Decision Making - Medical Decision Making This patient is 76-year-old woman with history of gastrointestinal AV mal formations, that cause episodic gastrointestinal bleeding. The patient has been having some recent gastrointestinal bleeding. On the exam today there is just a trace of heme positive stool. The patient's vital signs and hemoglobin stable. She is not really having symptoms other than some mild exertional dyspnea. Discussed these findings with the patient and she states she will follow with Dr. Dixon in the GI clinic. We discussed appropriate return parameters including increasing bleeding worsening of the dyspnea with exertion or any dyspnea at rest. Also discussed other symptoms of anemia Was pt. sent in by a medical professional or institution (, PA, MANAGER FORMS, urgent care, hospital, or fci...) When possible be specific @ -The patient is sent by her primary physician to have evaluation Did you speak to anyone other than the patient for history (EMS, parent, family, police, friend...)? What history was obtained from this source @ -[No] Did you review nursing and triage notes (agree or disagree)? Why? @ -[I reviewed and agree with nursing and triage notes] Were old charts reviewed (outside hosp., previous admission, EMS record, old EKG , old radiological studies, urgent care reports/EKG's, fci records)? Report findings @ -[No old charts were reviewed] Differential Diagnosis (chest pain, altered mental status, abdominal pain women, abdominal pain men, vaginal bleeding, weakness, fever, dyspnea, syncope, headache, dizziness, GI bleed, back pain, seizure, CVA, palpatations, mental hea lth, musculoskeletal)? @ -[Differential GI Bleed: Esophageal varices, aortoenteric fistula, Christy-Dahl, gastritis, peptic ulcer disease, diverticulosis, inflammatory bowel disease, hemorrhoids, fissure, colitis, malignancy, Meckels diverticulum, this is not meant to be an all- inclusive list. EKG interpreted by me (3pts min.). @ -[As above] X-rays interpreted by me (1pt min.). @ -[None done] CT interpreted by me (1pt min.). @ -[None done] U/S interpreted by me (1pt. min.). @ -[None done] What testing was considered but not performed or refused? (CT, X-rays, U/S, labs)? Why? @ -[None] What meds were considered but not given or refused? Why? @ -[None] Did you discuss the management of the patient with other professionals ( professionals i.e. , PA, MANAGER FORMS, lab, RT, psych nurse, marriage and family social worker, foundry laborer coreroom, teacher, loans officer, director of casework services)? Give summary @ -[Case is discussed with the sound physician on-call and they agree the patient is stable for outpatient workup Was smoking cessation discussed for >3mins.? @ -[No] Was critical care preformed (if so, how long)? @ -[No] Were there social determinants of health that impacted care today? How? (Homelessness, low income, unemployed, alcoholism, drug addiction, transportation, low edu. Level, literacy, decrease access to med. care, senior care, rehab)? @ -[No] Was there de-escalation of care discussed even if they declined (Discuss DNR or withdrawal of care, Hospice)? DNR status @ -[No] What co-morbidities impacted this encounter? (DM, HTN, Smoking, COPD, CAD, Cancer, CVA, ARF, Chemo, Hep., AIDS, mental health diagnosis, sleep apnea, morbid obesity)? @ -[None] Was patient admitted / discharged? Hospital course, mention meds given and route, prescriptions, significant lab abnormalities, going to OR and other pertinent info. @ -[Discharged to have close follow-up Undiagnosed new problem with uncertain prognosis? @ -[No] Drug Therapy requiring intensive monitoring for toxicity (Heparin, Nitro, Insulin, Cardizem)? @ -[No] Were any procedures done? @ -[No] Diagnosis/symptom? @ -[Acute GI bleeding Acute, or Chronic, or Acute on Chronic? @ -[default] Uncomplicated (without systemic symptoms) or Complicated (systemic symptoms)? @ -[default] Side effects of treatment? @ -[No] Exacerbation, Progression, or Severe Exacerbation? @ -[No] Poses a threat to life or bodily function? How? (Chest pain, USA, NH, pneumonia, PE, COPD, DKA, ARF, appy, cholecystitis, CVA, Diverticulitis, Homicidal, Suicidal, threat to staff... and all critical care pts) @ -[No] - Lab Data Result diagrams: 05/27/22 16:59 05/27/22 16:59 Lab Results 05/27/22 05/27/22 05/27/22 Range/Units 16:59 16:59 16:59 WBC 7.3 (3.8-10.6) k/uL RBC 4.86 (3.80-5.40) m/uL Hgb 11.6 (11.4-16.0) gm/dL Hct 37.5 (34.0-46.0) % MCV 77.2 L (80.0-100.0) fL MCH 23.8 L (25.0-35.0) pg MCHC 30.9 L (31.0-37.0) g/dL RDW 16.2 H (11.5-15.5) % Plt Count 243 (150-450) k/uL MPV 7.8 Neutrophils % 76 % Lymphocytes % 14 % Monocytes % 6 % Eosinophils % 2 % Basophils % 0 % Neutrophils # 5.5 (1.3-7.7) k/uL Lymphocytes # 1.0 (1.0-4.8) k/uL Monocytes # 0.4 (0-1.0) k/uL Eosinophils # 0.2 (0-0.7) k/uL Basophils # 0.0 (0-0.2) k/uL Hypochromasia Moderate Anisocytosis Slight Microcytosis Slight PT 10.5 (9.0-12.0) sec INR 1.0 (<1.2) APTT 21.9 L (22.0-30.0) sec Sodium 135 L (137-145) mmol/L Potassium 5.5 H (3.5-5.1) mmol/L Chloride 101 (98-107) mmol/L Carbon Dioxide 28 (22-30) mmol/L Anion Gap 6 mmol/L BUN 16 (7-17) mg/dL Creatinine 0.68 (0.52-1.04) mg/dL Est GFR (CKD-EPI)AfAm >90 (>60 ml/min/1.73 sqM) Est GFR (CKD-EPI)NonAf 86 (>60 ml/min/1.73 sqM) Glucose 86 (74-99) mg/dL Plasma Lactic Acid Ivan (0.7-2.0) mmol/L Calcium 9.1 (8.4-10.2) mg/dL Total Bilirubin 1.3 (0.2-1.3) mg/dL AST 55 H (14-36) U/L ALT 29 (4-34) U/L Alkaline Phosphatase 104 (38-126) U/L Troponin I (0.000-0.034) ng/mL Total Protein 7.5 (6.3-8.2) g/dL Albumin 4.2 (3.5-5.0) g/dL Stool Occult Blood (Negative) Blood Type Blood Type Recheck Bld Type Recheck Status Antibody Screen Spec Expiration Date 05/27/22 05/27/22 05/27/22 Range/Units 16:59 16:59 16:59 WBC (3.8-10.6) k/uL RBC (3.80-5.40) m/uL Hgb (11.4-16.0) gm/dL Hct (34.0-46.0) % MCV (80.0-100.0) fL MCH (25.0-35.0) pg MCHC (31.0-37.0) g/dL RDW (11.5-15.5) % Plt Count (150-450) k/uL MPV Neutrophils % % Lymphocytes % % Monocytes % % Eosinophils % % Basophils % % Neutrophils # (1.3-7.7) k/uL Lymphocytes # (1.0-4.8) k/uL Monocytes # (0-1.0) k/uL Eosinophils # (0-0.7) k/uL Basophils # (0-0.2) k/uL Hypochromasia Anisocytosis Microcytosis PT (9.0-12.0) sec INR (<1.2) APTT (22.0-30.0) sec Sodium (137-145) mmol/L Potassium (3.5-5.1) mmol/L Chloride (98-107) mmol/L Carbon Dioxide (22-30) mmol/L Anion Gap mmol/L BUN (7-17) mg/dL Creatinine (0.52-1.04) mg/dL Est GFR (CKD-EPI)AfAm (>60 ml/min/1.73 sqM) Est GFR (CKD-EPI)NonAf (>60 ml/min/1.73 sqM) Glucose (74-99) mg/dL Plasma Lactic Acid Ivan 1.4 (0.7-2.0) mmol/L Calcium (8.4-10.2) mg/dL Total Bilirubin (0.2-1.3) mg/dL AST (14-36) U/L ALT (4-34) U/L Alkaline Phosphatase (38-126) U/L Troponin I 0.017 (0.000-0.034) ng/mL Total Protein (6.3-8.2) g/dL Albumin (3.5-5.0) g/dL Stool Occult Blood Positive H (Negative) Blood Type Blood Type Recheck Bld Type Recheck Status Antibody Screen Spec Expiration Date 05/27/22 Range/Units 17:00 WBC (3.8-10.6) k/uL RBC (3.80-5.40) m/uL Hgb (11.4-16.0) gm/dL Hct (34.0-46.0) % MCV (80.0-100.0) fL MCH (25.0-35.0) pg MCHC (31.0-37.0) g/dL RDW (11.5-15.5) % Plt Count (150-450) k/uL MPV Neutrophils % % Lymphocytes % % Monocytes % % Eosinophils % % Basophils % % Neutrophils # (1.3-7.7) k/uL Lymphocytes # (1.0-4.8) k/uL Monocytes # (0-1.0) k/uL Eosinophils # (0-0.7) k/uL Basophils # (0-0.2) k/uL Hypochromasia Anisocytosis Microcytosis PT (9.0-12.0) sec INR (<1.2) APTT (22.0-30.0) sec Sodium (137-145) mmol/L Potassium (3.5-5.1) mmol/L Chloride (98-107) mmol/L Carbon Dioxide (22-30) mmol/L Anion Gap mmol/L BUN (7-17) mg/dL Creatinine (0.52-1.04) mg/dL Est GFR (CKD-EPI)AfAm (>60 ml/min/1.73 sqM) Est GFR (CKD-EPI)NonAf (>60 ml/min/1.73 sqM) Glucose (74-99) mg/dL Plasma Lactic Acid Ivan (0.7-2.0) mmol/L Calcium (8.4-10.2) mg/dL Total Bilirubin (0.2-1.3) mg/dL AST (14-36) U/L ALT (4-34) U/L Alkaline Phosphatase (38-126) U/L Troponin I (0.000-0.034) ng/mL Total Protein (6.3-8.2) g/dL Albumin (3.5-5.0) g/dL Stool Occult Blood (Negative) Blood Type O Positive Blood Type Recheck O Pos Bld Type Recheck Status No Antibody Screen NEGATIVE Spec Expiration Date 05/30/20222299 - EKG Data -: EKG Interpreted by Sd EKG shows normal: sinus rhythm, axis (Normal), intervals (Normal), QRS complexes (Normal), ST-T waves (Normal) Rate: normal (Rate 84 bpm) Interpretation: normal EKG Disposition Clinical Impression: GI bleeding Disposition: HOME SELF-CARE Condition: Good Instructions (If sedation given, give patient instructions): Gastrointestinal Bleeding (ED) Is patient prescribed a controlled substance at d/c from ED?: No Referrals: Solitario Price MD [Primary Care Provider] - 1-2 days
[2022-05-27 17:28] LABS: Anisocytosis Slight; Basophils % (A) 0 %; Eosinophils # (A) 0.2 k/uL (0-0.7); Eosinophils % (A) 2 %; HCT 37.5 % (34.0-46.0); HGB 11.6 gm/dL (11.4-16.0); Hypochromasia Moderate; Lymphocytes % (A) 14 %; MCH 23.8 pg (25.0-35.0); MCHC 30.9 g/dL (31.0-37.0); MCV 77.2 fL (80.0-100.0); Mean Platelet Volume 7.8; Microcytosis Slight; Monocytes # (A) 0.4 k/uL (0-1.0); Monocytes % (A) 6 %; Neutrophils # (A) 5.5 k/uL (1.3-7.7); Neutrophils % (A) 76 %; Platelet Count 243 k/uL (150-450); RBC 4.86 m/uL (3.80-5.40); RDW 16.2 % (11.5-15.5); WBC 7.3 k/uL (3.8-10.6)
[2022-05-27 17:48] LABS: ALT 29 U/L (4-34); African American GFR (CKD) >90 (>60 ml/min/1.73 sqM); Anion Gap 6 mmol/L; Blood Urea Nitrogen 16 mg/dL (7-17); Calcium 9.1 mg/dL (8.4-10.2); Carbon Dioxide 28 mmol/L (22-30); Chloride 101 mmol/L (98-107); Glucose 86 mg/dL (74-99); Non-African American GFR(CKD) 86 (>60 ml/min/1.73 sqM); Sodium 135 mmol/L (137-145)
[2022-05-27 17:53] LABS: Prothrombin Time 10.5 sec (9.0-12.0)
[2022-05-27 18:02] LABS: Partial Thromboplastin Time 21.9 sec (22.0-30.0)
[2022-05-27 18:03] LABS: AST 55 U/L (14-36); Albumin 4.2 g/dL (3.5-5.0); Alkaline Phosphatase 104 U/L (38-126); Potassium 5.5 mmol/L (3.5-5.1); Total Bilirubin 1.3 mg/dL (0.2-1.3); Total Protein 7.5 g/dL (6.3-8.2)
== END 2022-05-27 22:43 | disposition home or self-care (01) ==
LOC: EC 15:07
DX: K92.2 Gastrointestinal hemorrhage, unspecified (principal); I10 Essential (primary) hypertension; K21.9 Gastro-esophageal reflux disease without esophagitis; Z79.899 Other long term (current) drug therapy; Z88.2 Allergy status to sulfonamides
CPT/HCPCS: 36415; 80053; 82272; 83605; 84484; 85025; 85610; 85730; 86850; 86900; 86901; 93005; 99285

== ENCOUNTER → 2022-05-29 | Outpatient (CLI) | payer MEDICARE, OTHER ==
--- NOTE | 2022-05-29 20:21 | CA ---
Transthoracic Echo Report Name: Deisi Salazar Age: 76 Gender: F : 1945 Exam Date: 05/29/2022 15:01 Exam Location: [facility] Ht (in): 60 Wt (lb): 260 Ordering Physician: Solitario Price MD Attending/Referring Phys: Sydni Chin PAC Dry Janitor Perla Little RDCS Procedure CPT: Indications: R06.00 DYSPNEA, UNSPECIFIED Cardiac Hx: Technical Quality: Technically difficult study Contrast 1: Total Dose (mL): Contrast 2: Total Dose (mL): MEASUREMENTS (Male / Female) Normal Values 2D ECHO LV Diastolic Diameter PLAX 3.9 cm 4.2 - 5.9 / 3.9 - 5.3 cm LV Systolic Diameter PLAX 3.1 cm IVS Diastolic Thickness 1.5 cm 0.6 - 1.0 / 0.6 - 0.9 cm LVPW Diastolic Thickness 1.4 cm 0.6 - 1.0 / 0.6 - 0.9 cm LV Relative Wall Thickness 0.7 RV Internal Dim ED PLAX 2.9 cm LVOT Diameter 2.0 cm LA Systolic Diameter LX 3.1 cm 3.0 - 4.0 / 2.7 - 3.8 cm LA Volume 49.8 cm??? 18 - 58 / 22 - 52 cm??? M-MODE Aortic Root Diameter MM 3.2 cm MV E Point Septal Separation 0.1 cm AV Cusp Separation MM 1.1 cm DOPPLER AV Peak Velocity 346.1 cm/s AV Peak Gradient 47.9 mmHg AV Mean Velocity 267.5 cm/s AV Mean Gradient 30.3 mmHg AV Velocity Time Integral 66.6 cm LVOT Peak Velocity 155.8 cm/s LVOT Peak Gradient 9.7 mmHg AV Area Cont Eq pk 1.5 cm??? MV Area PHT 2.4 cm??? Mitral E Point Velocity 100.1 cm/s Mitral A Point Velocity 128.6 cm/s Mitral E to A Ratio 0.8 MV Deceleration Time 317.7 ms MV E' Velocity 4.0 cm/s Mitral E to MV E' Ratio 25.2 TR Peak Velocity 270.9 cm/s TR Peak Gradient 29.3 mmHg Right Ventricular Systolic Press 34.3 mmHg FINDINGS Left Ventricle Left ventricular ejection fraction is estimated at 55-60 %. Left ventricular cavity size normal. Moderate concentric left ventricular hypertrophy. Right Ventricle Normal right ventricular size and function. Mild pulmonary hypertension. Right Atrium Normal right atrial size. Left Atrium Normal left atrial size. Mitral Valve Mitral valve thickened. Mild mitral annular calcification. Mild mitral regurgitation. Aortic Valve Trileaflet aortic valve. Moderate Aortic valve sclerosis. Moderate aortic stenosis with a peak gradient of 48 mmHg and a mean gradient of 30 mmHg. Tricuspid Valve Structurally normal tricuspid valve. Mild tricuspid regurgitation. Pulmonic Valve Pulmonic valve not well visualized. Pericardium Normal pericardium. No pericardial effusion. Aorta Normal size aortic root and proximal ascending aorta. CONCLUSIONS LVH with preserved systolic function and at least moderate aortic stenosis, calcific Previewed by: Dr. Cruz Myles MD (Electronically Signed) Final Date: 29 May 2022 20:20
== END | disposition home or self-care (01) ==
LOC: RADECHMAIN 14:43
PROVIDERS: ATTEND Family Medicine
DX: I35.0 Nonrheumatic aortic (valve) stenosis (principal); R06.00 Dyspnea, unspecified
CPT/HCPCS: 93306

== ENCOUNTER 2022-06-24 07:23 | Day surgery (SDC) | payer MEDICARE, OTHER ==
[2022-06-19 15:31] VITALS: BMI 50.8
[2022-06-24] MEDS ORDERED: LIDOCAINE 1% (10MG/ML) FOR IV START INTRADERMA PRN (07:46)
[2022-06-24] MEDS ORDERED: LACTATED RINGERS 1,000 ML IV SCH (07:46)
[2022-06-24 08:15] VITALS: TEMP 97.3
[2022-06-24] MEDS ORDERED: PROPOFOL 10 MG/ML 20 ML VIAL IV ONE (08:32)
[2022-06-24] MEDS ORDERED: LIDOCAINE 2% INJ 20 MG/ML (2 ML VIAL) ONE (08:32)
--- NOTE | 2022-06-24 09:05 | P.PCN ---
Date of Procedure: 06/24/22 Procedure(s) Performed: Brief history: Patient is a pleasant 76-year-old white female with history of recurrent iron deficiency anemia scheduled for an elective upper endoscopy as well as colonoscopy as a part of evaluation of recurrent anemia with a hemoglobin of 10 g/dL. 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 Prior to that in February 2020 she did have an EGD and colonoscopy that revealed duodenal and cecal IV and 70 cauterized. Recently received 3 iron infusions Procedure performed: Esophagogastroduodenoscopy with cautery Colonoscopy with cautery and Endo Clip placement Preoperative diagnosis: Recurrent iron deficiency anemia Anesthesia: MAC Procedure: After informed consent was obtained from the patient was brought into the endoscopy unit and IV sedation was administered by anesthesia under continuous monitoring. Initially upper endoscopy was done. The Olympus GF 160 video endoscope was inserted inserted into the mouth and esophagus intubated without any difficulty and was gradually advanced into the stomach and duodenum and carefully examined. The bulb and second part of the duodenum had 2 small nonbleeding arterial venous malformations cauterized. The scope was then withdrawn into the stomach adequately insufflated with air and upon careful examination the antrum and body, cardia and fundus appeared normal. The scope was then withdrawn into the esophagus. Small hiatal hernia noted. The GE junction was located at 40 cm to the incisors. It appeared regular with no erythema erosions or ulcerations. Rest of the esophagus appeared normal. Patient tolerated the procedure well. At this time the patient continued to remain sedation. Initial digital rectal examination was normal. Olympus CF 160 video colonoscope was then inserted into the rectum and gradually advanced to the cecum without any difficulty. Careful examination was performed as the scope was gradually being withdrawn. The prep was excellent. The cecum, had at least 4 small nonbleeding arterial venous malformation measuring between 5-6 mm in size that they cauterized using a gold probe. In the ascending colon there were at least nonbleeding AVMs the largest measuring 1 cm in size which were cauterizing using a cold probe and the largest AVM started having active bleeding despite applying cautery. Hence at this time Endo Clip was placed and good hemostasis was achieved. Rest of the transverse colon, descending colon, sigmoid colon and rectum appeared normal. scattered sigmoid diverticula Retroflexion was performed in the rectum and no lesions were noted. Patient tolerated the procedure well. Impression: 1. Upper endoscopy revealed 2 small nonbleeding duodenal AVMs and they cauterized using a gold probe 2. 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 The largest AVM in the ascending colon had active bleeding while cauterizing scattered sigmoid diverticulosis Recommendations: Findings of this examination were discussed with the patient as well as her family. She was advised to follow with the biopsy results. Continue with iron supplements and iron infusions and monitor CBC periodically. 4 up in office in 2 months
[2022-06-24 10:25] VITALS: BP 125/86; PULSE 84; RESP 18
== END 2022-06-24 11:33 | disposition home or self-care (01) ==
LOC: ORWHC2ENDO 07:23
PROVIDERS: ATTEND Internal Medicine Gastroenterology
DX: K31.819 Angiodysplasia of stomach and duodenum without bleeding (principal); D50.9 Iron deficiency anemia, unspecified; K44.9 Diaphragmatic hernia without obstruction or gangrene; K57.30 Diverticulosis of large intestine without perforation or abscess without bleeding; K55.20 Angiodysplasia of colon without hemorrhage; I10 Essential (primary) hypertension; I99.8 Other disorder of circulatory system; E07.9 Disorder of thyroid, unspecified; K21.9 Gastro-esophageal reflux disease without esophagitis; Z98.890 Other specified postprocedural states; Z79.899 Other long term (current) drug therapy
CPT/HCPCS: 45382; 43255; J2704; J2001

== ENCOUNTER → 2022-12-08 | Outpatient (CLI) | payer MEDICARE, OTHER ==
--- NOTE | 2022-12-09 09:10 | MM ---
Reason for Exam: Screening (asymptomatic). Last mammogram was performed 1 year(s) and 6 month(s) ago. Patient History: Menarche at age 14. First Full-Term at age 22. Postmenopausal. Other cancer, age 33. Risk Values: Amber 5 year model risk: 1.6%. NCI Lifetime model risk: 3.2%. Prior Study Comparison: 11/10/2017 Bilateral Screening Mammogram, MERGED WITH [facility]. 02/13/2019 Bilateral Screening Mammogram, MERGED WITH [facility]. 05/16/2021 Bilateral Screening Mammogram, MERGED WITH [facility]. Tissue Density: The breast tissue is almost entirely fat. Findings: Analyzed By CAD. There is no suspicious group of microcalcifications or new suspicious mass. Overall Assessment: Negative, BI-RAD 1 Management: Screening Mammogram of both breasts in [address] [facility] will attempt to contact patient to return for supplemental views and ultrasound if indicated. Patient should continue monthly self-breast exams. A clinical breast exam by your physician is recommended on an annual basis. This exam should not preclude additional follow-up of suspicious palpable abnormalities. Note on Amber scores and lifetime risk: 1. A Amber score greater than 3% is considered moderate risk. If this is the case, consider specialist referral to assess eligibility for a risk reducing agent. 2. If overall lifetime risk for the development of breast cancer is 20% or higher, the patient may qualify for future screening with alternating mammogram and breast MRI. Electronically signed and approved by: Abner Raymond DO
== END | disposition home or self-care (01) ==
LOC: RADMAMWWP 10:45
PROVIDERS: ATTEND Family Medicine
DX: Z12.31 Encounter for screening mammogram for malignant neoplasm of breast (principal); Z78.0 Asymptomatic menopausal state
CPT/HCPCS: 77063; 77067

== ENCOUNTER → 2022-12-16 | Outpatient (CLI) | payer MEDICARE, OTHER ==
[2022-12-16 13:48] LABS: African American GFR (CKD) >90 (>60 ml/min/1.73 sqM); Blood Urea Nitrogen 13 mg/dL (7-17); Non-African American GFR(CKD) 86 (>60 ml/min/1.73 sqM)
--- NOTE | 2022-12-16 15:18 | CT ---
EXAMINATION TYPE: CT abdomen w con DATE OF EXAM: 12/16/2022 COMPARISON: 08/06/2020 HISTORY: hernia on anterior abdominal wall CT DLP: 1406 mGycm Automated exposure control for dose reduction was used. TECHNIQUE: Helical acquisition of images was performed from the lung bases through the top of iliac crest to include entire abdomen. CONTRAST: Performed with Oral Contrast and with IV Contrast, patient injected with 100 cc mL of Isovue 300. FINDINGS: LUNG BASES: There is a calcified granuloma within the left lower lobe. Additional punctate left lower lobe to millimeter nodule too small to characterize but likely benign. Calcification of the aortic v alve. LIVER/GB: Postcholecystectomy changes are noted. Liver is low in attenuation correlate for hepatic st eatosis. Hepatic granuloma seen. PANCREAS: No significant abnormality is seen. SPLEEN: Splenic granuloma. ADRENALS: Indeterminate 1.8 cm left adrenal nodule stable from prior exam. Most likely on the basis o f benign adenoma. KIDNEYS: No hydronephrosis or nephrolithiasis. Bilateral hypodensities within the kidneys. Upper pole right renal lesion too small to characterize. Others measure fluid attenuation compatible with Bosni ak classification 1 simple cyst. BOWEL: There is evidence of previous lap band surgery with prominent intrathoracic hernia or pouch n oted. There is an anterior abdominal wall hernia which contains a small portion of the stomach but no diagnostic evidence of obstruction. Diverticulosis of the colon. LYMPH NODES: No significant abnormality is seen. OSSEOUS STRUCTURES: Hypertrophic and degenerative change of the spine. High grade one anterolisthesi s L4-L5. Multilevel facet arthropathy. FREE AIR: No free air is visualized. OTHER: There is a 3.6 cm area of lobulated low attenuation only partially included in the field of vi ew within the left adnexa. Pelvic ultrasound recommended. As noted above there is a moderate-sized an terior\ventral abdominal wall hernia containing peritoneal fat and portions of the stomach with mild constriction of the anterior gastric wall seen on arterial phases which appears to somewhat reduce on delayed imaging. IMPRESSION: 1. There is an moderate sized anterior abdominal wall hernia containing a portion of the stomach. On the initial arterial images there does appear to be mild constriction of a portion of the stomach at this level which is seen to reduce on later delayed images. Transient constriction of the anterior wa ll of the stomach suspected. This also could be evaluated with upper GI exam. 2. Stable large hiatal hernia. Correlate with with upper GI to determinate if this is related to true hernia or esophageal distention secondary to band malfunction. 3. Stable left adrenal indeterminate nodule. Given stability favor adenoma. 4. There is a 3.6 cm left pelvic adnexal lesion partially included in the [id number]. Recommend pe lvic ultrasound.
== END | disposition home or self-care (01) ==
LOC: RADCTMAIN 13:01
PROVIDERS: ATTEND Family Medicine
DX: K43.9 Ventral hernia without obstruction or gangrene (principal); I10 Essential (primary) hypertension; K44.9 Diaphragmatic hernia without obstruction or gangrene; N83.8 Other noninflammatory disorders of ovary, fallopian tube and broad ligament
CPT/HCPCS: 82565; 84520; 74160; 36415; Q9967

== ENCOUNTER → 2022-12-23 | Outpatient (CLI) | payer MEDICARE, OTHER | END | disposition home or self-care (01) | LOC: RADUSWWP 13:53 | PROVIDERS: ATTEND Family Medicine | DX: Z53.9 Procedure and treatment not carried out, unspecified reason (principal) ==

== ENCOUNTER → 2023-01-06 | Outpatient (CLI) | payer MEDICARE, OTHER ==
--- NOTE | 2023-01-06 12:01 | NM ---
EXAMINATION TYPE: NM gastric emptying static DATE OF EXAM: 01/06/2023 COMPARISON: NONE CLINICAL INDICATION: Female, 77 years old with history of R13.19 DYSPHAGIA; Following administration of 1.8 mCi Tc 99m Sulfur Colloid with 4 ounces eggs, 1 piece toast with butt er & 3 ounces water, projection images of the abdomen were obtained 10 minutes post ingestion. Patient Emptying Values 1 Hour 36 % 2 Hours 79 % 3 Hours 97 % 4 Hours 98 % Gastroesophagel reflux: None IMPRESSION: Gastric emptying: Within normal limits Gastroesophageal reflux: None
== END | disposition home or self-care (01) ==
LOC: RADNMMAIN 06:39
PROVIDERS: ATTEND Family Medicine
DX: K43.9 Ventral hernia without obstruction or gangrene (principal); R13.19 Other dysphagia
CPT/HCPCS: 78264; A9541

== ENCOUNTER → 2023-01-15 | Outpatient (CLI) | payer MEDICARE, OTHER ==
--- NOTE | 2023-01-16 09:58 | US ---
EXAMINATION TYPE: US pelvis complete transvag DATE OF EXAM: 01/15/2023 COMPARISON: CT 12/16/2022 and 01/18/2020 CLINICAL INDICATION: Female, 77 years old with history of R10.2 PELVIC AND PERINEAL PAIN; left adnexa l lesion on CT, h/o cervical ca with radiation, no pelvic symptoms currently TECHNIQUE: TA/TV. Transabdominal sonographic images of the pelvis were acquired. Transvaginal sono graphic images were medically necessary to better assess the following anatomy: all structures Date of LMP: 25 years ago EXAM MEASUREMENTS: Uterus: 5.1 x 2.8 x 2.0 cm Endometrial Stripe: 0.3 cm Right Ovary: not seen Left Ovary: not seen 1. Uterus: Anteverted. Transabdominal assessment is nondiagnostic. Limited visualization even with t ransvaginal scanning. 2. Endometrium: 8 mm of distention of the uterine cavity by fluid. 3. Right Ovary: Obscured by overlying bowel gas and or atrophic 4. Left Ovary: Obscured by overlying bowel gas and or atrophic 5. Bilateral Adnexa: left adnexal 3.5 x 3.1 x 2.6cm hypoechoic lesion, possibly debris-filled cyst w hich may correlate with recent CT. Measuring up to 3.7 cm on the patient's 01/18/2020 CT. 6. Posterior cul-de-sac: wnl IMPRESSION: 1. Limited assessment due to patient's large size. There is a 3.5 cm cystic-appearing lesion in the l eft adnexa that seems to correspond to the partially visualized cyst seen on the CT of 12/16/2022. A c yst here measuring up to 3.7 cm was present on the 11/28/2019 CT. Given the relative stability from t hat time, annual ultrasound surveillance follow-up is recommended. 2. Fluid distending the urinary cavity of unknown etiology. Consider cervical stenosis. An underlying endometrial lesion would be difficult to exclude especially with the exam limitations. Clinically co rrelate as to the need for further evaluation such as with female pelvic MRI.
== END | disposition home or self-care (01) ==
LOC: RADUSWWP 14:37
PROVIDERS: ATTEND Family Medicine
DX: R10.2 Pelvic and perineal pain (principal); N32.89 Other specified disorders of bladder; Z85.41 Personal history of malignant neoplasm of cervix uteri
CPT/HCPCS: 76830; 76856

== ENCOUNTER → 2023-02-24 | Outpatient (CLI) | payer MEDICARE, OTHER | END | disposition home or self-care (01) | LOC: LABWHC1 15:11 | PROVIDERS: ATTEND Obstetrics & Gynecology Obstetrics | DX: N83.209 Unspecified ovarian cyst, unspecified side (principal) | CPT/HCPCS: 36415 ==

== ENCOUNTER → 2023-03-30 | Outpatient (CLI) | payer MEDICARE, OTHER ==
--- NOTE | 2023-03-31 08:12 | FL ---
EXAMINATION TYPE: FL fluoroscopy <1hr DATE OF EXAM: 03/30/2023 FLUOROSCOPY Fluoroscopy time of 13 seconds was used during lap band adjustment under fluoroscopy. 7 mL of fluid i s withdrawn. 1 image/s document/s the procedure. DAP: 114.54 mGycm2.
== END | disposition home or self-care (01) ==
LOC: RADUSWWP 12:51
PROVIDERS: ATTEND Surgery
DX: Z46.51 Encounter for fitting and adjustment of gastric lap band (principal)
CPT/HCPCS: 76000

== ENCOUNTER → 2023-03-30 | Outpatient (CLI) | payer MEDICARE, OTHER ==
--- NOTE | 2023-03-30 13:44 | P.PCN ---
Date of Procedure: 03/30/23 Procedure(s) Performed: Patient brought to fluoroscopy suite today for Lap-Band adjustment. In the office we were unable to palpate the patient's Lap-Band. Patient has had some abdominal pain issues along with shortness of breath. Some dysphagia. Rare episodes of vomiting. On her CAT scan the patient had distended esophagus. In the office we recommended emptying the band to see if this would help with any of her symptoms. Unfortunately we were unable to perform the band adjustment because of inability to palpate the port. Under fluoroscopy we were able to see the patient's lap band port in the left upper quadrant. The skin was localized with lidocaine after prepping the skin with alcohol swab. Pena needle advanced into the port without difficulty. 7 cc of saline was evacuated. Sterile dressing applied. Patient will be discharged home.
[2023-03-30 15:17] VITALS: BMI 7001.9
== END ==
LOC: BARWHC3 14:25
PROVIDERS: ATTEND Surgery
DX: R06.02 Shortness of breath (principal); R13.10 Dysphagia, unspecified; R11.10 Vomiting, unspecified; Z98.84 Bariatric surgery status
CPT/HCPCS: 43999

== ENCOUNTER 2023-04-01 13:19 | Inpatient (IN) | payer MEDICARE, OTHER ==
--- NOTE | 2023-04-01 14:10 | ED ---
General Adult HPI - General Chief complaint: Chest Pain Stated complaint: chest pains/sob Time Seen by Provider: 04/01/23 13:40 Source: patient, RN notes reviewed, old records reviewed Mode of arrival: ambulatory Limitations: no limitations - History of Present Illness Initial comments: This is a 77-year-old female who presents to the emergency department complaining of chest pain last night that she initially thought was heartburn. Patient states it went from her epigastric region upper chest and on spread throughout her chest. Patient states it lasted about 45 minutes she describes it as a pressure. Patient states she took Kristi[place] and it did not help her pain. Patient states this morning she got up and again had an episode of pain that lasted 20 to 30 minutes and it radiated to her back and she was mildly short of breath and it went up the side of her left neck as well. Patient states she had no diaphoretic episode. - Related Data Home Medications Medication Instructions Recorded Confirmed Omeprazole 40 mg PO DAILY 05/27/22 04/01/23 Aspirin/Sod Bicarb/Citric Acid 1 tab PO DAILY PRN 04/01/23 04/01/23 [Kristi-[place] Original Tab Eff] Lisinopril-Hctz 20-12.5 mg 1 tab PO DAILY 04/01/23 04/01/23 [Zestoretic 20-12.5] Allergies Allergy/AdvReac Type Severity Reaction Status Date / Time Sulfa (Sulfonamide Allergy Anaphylaxis Verified 04/01/23 14:57 Antibiotics) & Rash Review of Systems ROS Statement: Those systems with pertinent positive or pertinent negative responses have been documented in the HPI. ROS Other: All systems not noted in ROS Statement are negative. Past Medical History Past Medical History: Blood Disorder, Cancer, GERD/Reflux, Hyperlipidemia, Hypertension, Osteoarthritis (OA) Additional Past Medical History / Comment(s): Current SOB, SEVERE IRON DEFICIENCY ANEMIA-iron infusions q 2-3 months, last July 16. Hx CERVICAL CA with radiation in 1979, heart murmur, urinary incontinence, bronchitis X3 in last yr. History of Any Multi-Drug Resistant Organisms: None Reported Past Surgical History: Bariatric Surgery, Bladder Surgery, Hernia Repair, Joint Replacement, Orthopedic Surgery, Tonsillectomy Additional Past Surgical History / Comment(s): RT SHOULDER ROTATOR CUFF x 2, LAP BAND, RT knee replacement, BLADDER SUSP, EUGENIA carpal tunnel, EUGENIA CATARACT, PANNICULECTOMY, COLONOSCOPY, trigger finger X3-4. Past Anesthesia/Blood Transfusion Reactions: Previous Problems w/ Anesthesia Additional Past Anesthesia/Blood Transfusion Reaction / Comment(s): STATES HAD RESPIRATORY ISSUES/COUGHING POST OP, O2 SAT LOW(HAD BLOCK IN NECK) with PAST ROTATOR CUFF SX, 2ND SHOULDER SURGERY HAD NO PROBLEMS. Past Psychological History: No Psychological Hx Reported Smoking Status: Never smoker Past Alcohol Use History: None Reported Past Drug Use History: None Reported - Past Family History Mother Family Medical History: Cancer Additional Family Medical History / Comment(s): LUNG CA General Exam - General Exam Comments Initial Comments: GENERAL: Patient is well-developed and well-nourished. Patient is nontoxic and well- hydrated and is in no acute distress. ENT: Neck is soft and supple. No significant lymphadenopathy is noted. Oropharynx is clear. Moist mucous membranes. Neck has full range of motion without nino citing any pain. EYES: The sclera were anicteric and conjunctiva were pink and moist. Extraocular movements were intact and pupils were equal round and reactive to light. Eyelids were unremarkable. PULMONARY: Unlabored respirations. Good breath sounds bilaterally. No audible rales rhonchi or wheezing was noted. CARDIOVASCULAR: There is a regular rate and rhythm without any murmurs gallops or rubs. ABDOMEN: Soft and nontender with normal bowel sounds. SKIN: Skin is clear with no lesions or rashes and otherwise unremarkable. NEUROLOGIC: Patient is alert and oriented x3. Cranial nerves II through XII are grossly intact. Motor and sensory are also intact. Normal speech, volume and content. Symmetrical smile. MUSCULOSKELETAL: Normal extremities with adequate strength and full range of motion. LYMPHATICS: No significant lymphadenopathy is noted PSYCHIATRIC: Normal psychiatric evaluation. Limitations: no limitations Course Vital Signs 04/01/23 04/01/23 04/01/23 13:23 14:09 14:10 Temperature 98.1 F Pulse Rate 79 68 Pulse Rate [ 68 [employer] ] Respiratory 18 16 Rate Blood Pressure 182/107 156/102 O2 Sat by Pulse 98 98 Oximetry 04/01/23 04/01/23 14:12 16:00 Temperature Pulse Rate 82 Pulse Rate [ [employer] ] Respiratory 24 80 H Rate Blood Pressure 134/75 O2 Sat by Pulse 94 L Oximetry Medical Decision Making - Medical Decision Making EKG is interpreted by myself her EKG shows a sinus rhythm at 72 bpm CO interval 193 QRS 102 QT interval 391 QTc is 414. Patient's EKG shows no ST segment elevation or depression. Was pt. sent in by a medical professional or institution (SIDNEY Carl, LIBRARY ASSISTANT, urgent care, hospital, or [facility]...) When possible be specific @ -No Did you speak to anyone other than the patient for history (EMS, parent, family, police, friend...)? What history was obtained from this source @ -No Did you review nursing and triage notes (agree or disagree)? Why? @ -I reviewed and agree with nursing and triage notes Were old charts reviewed (outside hosp., previous admission, EMS record, old EKG, old radiological studies, urgent care reports/EKG's, [facility] records)? Report findings @ -I have reviewed prior charts and prior lab work on this patient Differential Diagnosis (chest pain, altered mental status, abdominal pain women, abdominal pain men, vaginal bleeding, weakness, fever, dyspnea, syncope, headache, dizziness, GI bleed, back pain, seizure, CVA, palpatations, mental health, musculoskeletal)? @ -Differential Chest Pain: Stable Angina, Unstable Angina, STEMI, NSTEMI Aortic Dissection, Pneumothorax, Musculoskeletal, Esophageal Spasm GERD, Cholecystitis, Pancreatitis, Zoster, this is not meant to be an all-inclusive list. EKG interpreted by me (3pts min.). @ -As above X-rays interpreted by me (1pt min.). @ -Chest x-ray shows maybe a little bit of pulmonary edema a BNP has been added CT interpreted by me (1pt min.). @ -None done U/S interpreted by me (1pt. min.). @ -None done What testing was considered but not performed or refused? (CT, X-rays, U/S, labs)? Why? @ -None What meds were considered but not given or refused? Why? @ -None Did you discuss the management of the patient with other professionals (professionals i.e. SIDNEY Carl, LIBRARY ASSISTANT, lab, RT, psych nurse, social service agency director, parakeet raiser, teacher, executive officer, immigration case worker)? Give summary @ -I spoke with [facility] they agreed to admit the patient Was smoking cessation discussed for >3mins.? @ -No Was critical care preformed (if so, how long)? @ -No Were there social determinants of health that impacted care today? How? (Homelessness, low income, unemployed, alcoholism, drug addiction, transportation, low edu. Level, literacy, decrease access to med. care, half-way, rehab)? @ -No Was there de-escalation of care discussed even if they declined (Discuss DNR or withdrawal of care, Hospice)? DNR status @ -No What co-morbidities impacted this encounter? (DM, HTN, Smoking, COPD, CAD, Cancer, CVA, ARF, Chemo, Hep., AIDS, mental health diagnosis, sleep apnea, morbid obesity)? @ -None Was patient admitted / discharged? Hospital course, mention meds given and route, prescriptions, significant lab abnormalities, going to OR and other pertinent info. @ -Patient's lab work came back within normal range however because of the chest pain and associated symptoms patient will be admitted to [facility] and cardiology will be consulted Undiagnosed new problem with uncertain prognosis? @ -No Drug Therapy requiring intensive monitoring for toxicity (Heparin, Nitro, Insulin, Cardizem)? @ -No Were any procedures done? @ -No Diagnosis/symptom? @ -Chest pain Acute, or Chronic, or Acute on Chronic? @ -Acute Uncomplicated (without systemic symptoms) or Complicated (systemic symptoms)? @ -Complicated Side effects of treatment? @ -No Exacerbation, Progression, or Severe Exacerbation? @ -No Poses a threat to life or bodily function? How? (Chest pain, USA, OR, pneumonia, PE, COPD, DKA, ARF, appy, cholecystitis, CVA, Diverticulitis, Homicidal, Suicidal, threat to staff... and all critical care pts) @ -Yes this could lead to an OR and endorgan dysfunction - Lab Data Result diagrams: 04/01/23 14:06 04/01/23 14:06 Lab Results 04/01/23 04/01/23 04/01/23 Range/Units 14:06 14:06 14:06 WBC 7.9 (3.8-10.6) k/uL RBC 5.55 H (3.80-5.40) m/uL Hgb 13.3 (11.4-16.0) gm/dL Hct 42.6 (34.0-46.0) % MCV 76.7 L (80.0-100.0) fL MCH 24.0 L (25.0-35.0) pg MCHC 31.3 (31.0-37.0) g/dL RDW 16.6 H (11.5-15.5) % Plt Count 205 (150-450) k/uL MPV 9.0 Neutrophils % 77 % Lymphocytes % 14 % Monocytes % 5 % Eosinophils % 2 % Basophils % 0 % Neutrophils # 6.0 (1.3-7.7) k/uL Lymphocytes # 1.1 (1.0-4.8) k/uL Monocytes # 0.4 (0-1.0) k/uL Eosinophils # 0.2 (0-0.7) k/uL Basophils # 0.0 (0-0.2) k/uL Hypochromasia Moderate Anisocytosis Slight Microcytosis Slight PT 11.4 (10.0-12.5) sec INR 1.0 (<1.2) APTT 24.2 (22.0-30.0) sec Sodium 139 (137-145) mmol/L Potassium 4.0 (3.5-5.1) mmol/L Chloride 99 (98-107) mmol/L Carbon Dioxide 34 H (22-30) mmol/L Anion Gap 6 mmol/L BUN 14 (7-17) mg/dL Creatinine 0.78 (0.52-1.04) mg/dL Est GFR (CKD-EPI)AfAm 86 (>60 ml/min/1.73 sqM) Est GFR (CKD-EPI)NonAf 74 (>60 ml/min/1.73 sqM) Glucose 121 H (74-99) mg/dL Calcium 9.3 (8.4-10.2) mg/dL Magnesium 1.6 (1.6-2.3) mg/dL Total Bilirubin 0.9 (0.2-1.3) mg/dL AST 30 (14-36) U/L ALT 27 (4-34) U/L Alkaline Phosphatase 140 H (38-126) U/L Troponin I (0.000-0.034) ng/mL Total Protein 7.1 (6.3-8.2) g/dL Albumin 4.1 (3.5-5.0) g/dL 04/01/23 Range/Units 14:06 WBC (3.8-10.6) k/uL RBC (3.80-5.40) m/uL Hgb (11.4-16.0) gm/dL Hct (34.0-46.0) % MCV (80.0-100.0) fL MCH (25.0-35.0) pg MCHC (31.0-37.0) g/dL RDW (11.5-15.5) % Plt Count (150-450) k/uL MPV Neutrophils % % Lymphocytes % % Monocytes % % Eosinophils % % Basophils % % Neutrophils # (1.3-7.7) k/uL Lymphocytes # (1.0-4.8) k/uL Monocytes # (0-1.0) k/uL Eosinophils # (0-0.7) k/uL Basophils # (0-0.2) k/uL Hypochromasia Anisocytosis Microcytosis PT (10.0-12.5) sec INR (<1.2) APTT (22.0-30.0) sec Sodium (137-145) mmol/L Potassium (3.5-5.1) mmol/L Chloride (98-107) mmol/L Carbon Dioxide (22-30) mmol/L Anion Gap mmol/L BUN (7-17) mg/dL Creatinine (0.52-1.04) mg/dL Est GFR (CKD-EPI)AfAm (>60 ml/min/1.73 sqM) Est GFR (CKD-EPI)NonAf (>60 ml/min/1.73 sqM) Glucose (74-99) mg/dL Calcium (8.4-10.2) mg/dL Magnesium (1.6-2.3) mg/dL Total Bilirubin (0.2-1.3) mg/dL AST (14-36) U/L ALT (4-34) U/L Alkaline Phosphatase (38-126) U/L Troponin I 0.020 (0.000-0.034) ng/mL Total Protein (6.3-8.2) g/dL Albumin (3.5-5.0) g/dL Disposition Clinical Impression: Chest pain Disposition: ADMITTED IP TO THIS [facility] Referrals: Solitario Price MD [Primary Care Provider] - 1-2 days Time of Disposition: 16:22
[2023-04-01] MEDS: hydrALAZINE HCL 20 MG/ML 1 ML VIAL IVP STA (14:18)
[2023-04-01] MEDS: NITROGLYCERIN OINT 1 INCH/GM PACKET TOPICAL STA (14:18)
[2023-04-01] MEDS: ASPIRIN 81 MG PO STA ×2 (14:18→17:30)
[2023-04-01 14:19] LABS: Anisocytosis Slight; Basophils % (A) 0 %; Eosinophils # (A) 0.2 k/uL (0-0.7); Eosinophils % (A) 2 %; HCT 42.6 % (34.0-46.0); HGB 13.3 gm/dL (11.4-16.0); Hypochromasia Moderate; Lymphocytes # (A) 1.1 k/uL (1.0-4.8); Lymphocytes % (A) 14 %; MCHC 31.3 g/dL (31.0-37.0); MCV 76.7 fL (80.0-100.0); Microcytosis Slight; Monocytes # (A) 0.4 k/uL (0-1.0); Monocytes % (A) 5 %; Neutrophils % (A) 77 %; Platelet Count 205 k/uL (150-450); RBC 5.55 m/uL (3.80-5.40); RDW 16.6 % (11.5-15.5); WBC 7.9 k/uL (3.8-10.6)
[2023-04-01 14:29] LABS: ALT 27 U/L (4-34); AST 30 U/L (14-36); African American GFR (CKD) 86 (>60 ml/min/1.73 sqM); Albumin 4.1 g/dL (3.5-5.0); Alkaline Phosphatase 140 U/L (38-126); Anion Gap 6 mmol/L; Blood Urea Nitrogen 14 mg/dL (7-17); Calcium 9.3 mg/dL (8.4-10.2); Carbon Dioxide 34 mmol/L (22-30); Chloride 99 mmol/L (98-107); Glucose 121 mg/dL (74-99); Magnesium 1.6 mg/dL (1.6-2.3); Non-African American GFR(CKD) 74 (>60 ml/min/1.73 sqM); Sodium 139 mmol/L (137-145); Total Bilirubin 0.9 mg/dL (0.2-1.3); Total Protein 7.1 g/dL (6.3-8.2)
[2023-04-01 14:56] LABS: Partial Thromboplastin Time 24.2 sec (22.0-30.0); Prothrombin Time 11.4 sec (10.0-12.5)
--- NOTE | 2023-04-01 15:57 | XR ---
EXAMINATION TYPE: XR chest 2V DATE OF EXAM: 04/01/2023 COMPARISON: 02/19/2021 HISTORY: 77-year-old female with chest pain TECHNIQUE: PA and lateral views FINDINGS: Posttraumatic or postsurgical deformity and shortening of the distal aspect of the right clavicle. Na rrowing of the subacromial space may reflect underlying full-thickness rotator cuff tear. Heart is mi ldly enlarged. Left bending device noted. Mild tortuosity/ectasia of the thoracic aorta. Diffuse inte rstitial and vascular density. No consolidation or pleural effusion. IMPRESSION: Mild cardiomegaly and pulmonary vascular congestion. No brayan pulmonary edema
[2023-04-01] MEDS ORDERED: NITROGLYCERIN SL TABS 0.4 MG TAB SUBLINGUAL PRN (16:22)
[2023-04-01 17:00] LABS: Appearance,Urine Cloudy (Clear); Bacteria,Urine Moderate /hpf; Bilirubin,Urine Negative (Negative); Blood,Urine Moderate (Negative); Color,Urine Colorless; Glucose,Urine (UA) Negative (Negative); Ketones,Urine Negative (Negative); Leukocyte Esterase,Urine Large (Negative); Mucus,Urine Rare /hpf; Nitrite,Urine Negative (Negative); Protein,Urine Negative (Negative); RBC,Urine 23 /hpf (0-5); Specific Gravity,Urine 1.007 (1.001-1.035); Squamous Epithelial Cell,Urine <1 /hpf (0-4); Urobilinogen,Urine <2.0 mg/dL (<2.0); WBC,Urine >182 /hpf (0-5)
--- NOTE | 2023-04-01 17:14 | P.HPIM ---
History of Present Illness H&P Date: 04/01/23 History of Presenting Illness: Patient is a very pleasant 77-year-old female with a past medical history of hypertension, hyperlipidemia, GERD, iron deficiency anemia, and previous bariatric surgery with lap band placement. Patient reports she recently und erwent evaluation by Dr. Hyatt secondary to movement/displacement of her Lap- Band. She reports she was seen in his office and had air removed from band on 03/30/2023. She reports all day Wednesday feeling great and on Wednesday morning she began experiencing some pains in her chest that she believed were secondary to gastric reflux. She describes these pains as a pressure-like sensation to her midsternal chest. Patient reports she took an Krist[place] and some Tums and pain eventually went away. She reports this came back multiple times waxing and waning throughout the day and evening on Wednesday. She reports today this pain to her midsternal chest returned accompanied by nausea and radiated into her back and right lower jaw. She reports this was accompanied by mild nausea and shortness of breath. She denies experiencing any fevers, chills, headache, lightheadedness, dizziness, diaphoresis, palpitations, cough or congestion, abdominal pain or discomfort, episodes of vomiting, or experiencing any numbness/tingling/weakness/swelling in her extremities. She reports she has been dealing with urinary urgency and frequency reporting urinating "all the time". She denies having any hematuria or dysuria. She reports that her PCP is Dr. Price and that she follows with [facility] under the care of Dr. Solis and was scheduled to see him in office and undergo some testing on April 14. Upon arrival to the emergency department, patient underwent full evaluation. Vital signs upon arrival show blood pressure 182/107, heart rate 79, respiratory rate 18, temp 98.1 F, and SpO2 of 98% on room air. EKG was completed showing normal sinus rhythm at 72 bpm with T wave inversion in leads III otherwise no further significant T wave or ST abnormalities showing no signs of acute ischemia. Chest x-ray completed showing mild cardiomegaly with mild pulmonary congestion. Labs completed and reviewed. CBC unremarkable. Coagulation profile normal findings. BMP revealing mild hypercarbia with bicarb of 34 otherwise normal findings. Blood glucose was 121. Magnesium slightly low at 1.6. Liver profile unremarkable. Initial troponin 0.020 and proBNP of 349. Urinalysis positive for infection showing positive for blood, leukocytes, 23 RBCs, and greater than 182 WBCs. Patient admitted under our services with consultation to cardiology. Review of systems: Pertinent positives and negatives as discussed in HPI, a complete review of systems was performed and all other systems are negative. Physical exam: Vital signs reviewed and stable. General: Nontoxic, no distress and appears stated age. Derm: Skin warm and dry, normal coloration for ethnicity. Head: Atraumatic, normocephalic and symmetric. Eyes: EOMs intact, no lid lag, and anicteric sclera Mouth: no lip lesions, mucus membranes moist Cardiovascular: regular rate and rhythm with normal S1S2, systolic murmur, positive posterior tibial pulses bilaterally, and cap refill < 2 seconds. Lungs: Respirations even, regular, and unlabored on room air. Lungs CTA bilaterally, no rhonchi, no rales, no wheezing, and no accessory muscle usage. Abdominal: Obese abdomen, soft, nontender to palpation, no guarding, no appreciable organomegaly Ext: ROM intact. No gross muscle atrophy, no edema, no contractures Neuro: Speech clear, face symmetrical and CN II-XII grossly intact with no noted focal neuro deficits Psych: Alert and oriented to person, place, time, and situation. Appropriate and pleasant affect. Assessment and Plan of Care: Chest pain, rule out acute coronary event Cardiomegaly with mild pulmonary congestion Hypertension Hyperlipidemia GERD History of bariatric surgery with gastric band recent removal -Cardiology consulted, appreciate recommendations -Telemetry monitoring -Trend troponins -Cardiac diet, NPO at midnight -Aspirin 81 mg daily and lisinopril/hydrochlorothiazide 20-12.5 mg daily -GI cocktail x 1 dose consisting of Maalox, lidocaine, and Levsin. -GI prophylaxis with Protonix. -Lipid profile with a.m. labs. -Echocardiogram UTI with reports of urinary frequency and urgency IV antibiotics with Rocephin 2 g IVPB every 24 hours pending urine culture results. Follow-up on urine culture. Hypomagnesemia Replaced with magnesium sulfate 2 g IVPB. Will continue to monitor for resolution with repeat morning magnesium levels. Additional orders to be placed as indicated based upon these findings. Data and imaging reviewed: -As stated above in HPI. CODE STATUS: Full code DVT prophylaxis: Heparin Anticipated discharge date: 24 to [address]: Home Patient was seen independently by Nurse Practitioner. This document was prepared using [employer] [place] dictation software. Please allow for errors in business analytics specialist while rare they do occur. I reviewed the documentation as provided by the MARLEEN above, who is the original author of this note. I agree with the documented assessment and plan, with the following changes: none Past Medical History Past Medical History: Blood Disorder, Cancer, GERD/Reflux, Hyperlipidemia, Hypertension, Osteoarthritis (OA) Additional Past Medical History / Comment(s): Current SOB, SEVERE IRON DEFICIENCY ANEMIA-iron infusions q 2-3 months, last July 16. Hx CERVICAL CA w ith radiation in 1979, heart murmur, urinary incontinence, bronchitis X3 in last yr. History of Any Multi-Drug Resistant Organisms: None Reported Past Surgical History: Bariatric Surgery, Bladder Surgery, Hernia Repair, Joint Replacement, Orthopedic Surgery, Tonsillectomy Additional Past Surgical History / Comment(s): RT SHOULDER ROTATOR CUFF x 2, LAP BAND, RT knee replacement, BLADDER SUSP, EUGENIA carpal tunnel, EUGENIA CATARACT, PANNICULECTOMY, COLONOSCOPY, trigger finger X3-4. Past Anesthesia/Blood Transfusion Reactions: Previous Problems w/ Anesthesia Additional Past Anesthesia/Blood Transfusion Reaction / Comment(s): STATES HAD RESPIRATORY ISSUES/COUGHING POST OP, O2 SAT LOW(HAD BLOCK IN NECK) with PAST ROTATOR CUFF SX, 2ND SHOULDER SURGERY HAD NO PROBLEMS. Past Psychological History: No Psychological Hx Reported Smoking Status: Never smoker Past Alcohol Use History: None Reported Past Drug Use History: None Reported - Past Family History Mother Family Medical History: Cancer Additional Family Medical History / Comment(s): LUNG CA Medications and Allergies Home Medications Medication Instructions Recorded Confirmed Type Omeprazole 40 mg PO DAILY 05/27/22 04/01/23 History Aspirin/Sod Bicarb/Citric Acid 1 tab PO DAILY PRN 04/01/23 04/01/23 History [[place]risti[place] Original Tab Eff] Lisinopril-Hctz 20-12.5 mg 1 tab PO DAILY 04/01/23 04/01/23 History [Zestoretic 20-12.5] Allergies Allergy/AdvReac Type Severity Reaction Status Date / Time Sulfa (Sulfonamide Allergy Anaphylaxis Verified 04/01/23 14:57 Antibiotics) & Rash Physical Exam Osteopathic Statement: *. No significant issues noted on an osteopathic structural exam other than those noted in the History and Physical/Consult. Vitals: Vital Signs Temp Pulse Pulse Resp BP Pulse Ox 04/01/23 17:00 78 16 143/74 98 04/01/23 16:00 82 80 H 134/75 94 L 04/01/23 14:12 24 04/01/23 14:10 68 04/01/23 14:09 68 16 156/102 98 04/01/23 13:23 98.1 F 79 18 182/107 98 Intake and Output 04/01/23 04/01/23 04/01/23 06:59 14:59 22:59 Other: Weight 113.398 kg Results CBC & Chem 7: 04/02/23 06:02 04/02/23 06:02 Labs: Abnormal Lab Results - Last 24 Hours (Table) 04/01/23 04/01/23 04/01/23 Range/Units 14:06 14:06 16:36 RBC 5.55 H (3.80-5.40) m/uL MCV 76.7 L (80.0-100.0) fL MCH 24.0 L (25.0-35.0) pg RDW 16.6 H (11.5-15.5) % Carbon Dioxide 34 H (22-30) mmol/L Glucose 121 H (74-99) mg/dL Alkaline Phosphatase 140 H (38-126) U/L Urine Appearance Cloudy H (Clear) Urine Blood Moderate H (Negative) Ur Leukocyte Esterase Large H (Negative) Urine RBC 23 H (0-5) /hpf Urine WBC >182 H (0-5) /hpf Urine Bacteria Moderate H (None) /hpf Urine Mucus Rare H (None) /hpf
[2023-04-01] MEDS: NITROGLYCERIN OINT 1 INCH/GM PACKET TOPICAL SCH (17:30)
[2023-04-01] MEDS: LISINOPRIL-HCTZ 20-12.5 MG 1 EACH TAB PO SCH (18:28)
[2023-04-01] MEDS: MAGNESIUM SULFATE-D5W PMX 1 GM in DEXTROSE/WATER 1 100ML.BAG IVPB SCH (18:28)
[2023-04-01] MEDS: MAG HYDROX/AL HYDROX/SIMETH 30 ML, HYOSCYAMINE ELIXIR 10 ML, LIDOCAINE VISCOUS 10 ML PO ONE (20:28)
[2023-04-01] MEDS: HEPARIN SODIUM,PORCINE 5,000 UNIT/ML 1 ML VIAL SQ SCH (23:15)
[2023-04-02] MEDS: PANTOPRAZOLE 40 MG TABLET PO SCH (06:27)
[2023-04-02] MEDS: ASPIRIN 81 MG PO SCH (08:34)
[2023-04-02] MEDS ORDERED: ASPIRIN 325 MG TAB PO SCH (09:00)
--- NOTE | 2023-04-02 09:06 | P.CRDCN ---
History of Present Illness Consult date: 04/02/23 Consult reason: chest pain History of present illness: History of present illness: This is a 77-year-old female patient of Dr. Solis with past medical history of hypertension, hiatal hernia, Dieulafoy's lesion of esophagus, morbid obesity status post lap band. We have been asked to evaluate the patient for chest pain. Patient gives history that she was having trouble with nausea vomiting and Dr. Hyatt performed removal of fluid from her Lap-Band but was difficult procedure getting access. Following that, patient had episodes of chest pain that was quite severe lasted about 1-1 and half hours. She states she normally can take some Kristi-[place] and Tums with relief but this does not help. Patient presented to the hospital with blood pressure of 182/107 status post hydralazine IV x 1. EKG sinus rhythm with no acute ST-T wave changes. Chest x-ray: Mild cardiomegaly with pulmonary vascular congestion. No brayan pulmonary edema. Atypical chest pain, acute coronary syndrome ruled out with negative troponins WBC 7.9, hemoglobin 13.3, platelet count 205. INR 1. Sodium 139, potassium 4, CO2 34, BUN 14 creatinine 0.78. Troponin negative x 3. Glucose 121. Alkaline phosphatase 140 otherwise liver function test are normal. Magnesium 1.6. Urinalysis leukoesterase large, RBCs 23, WBCs greater than 182. Home cardiac medications: Lisinopril/hydrochlorothiazide 20-12.5 mg daily Echocardiogram performed 05/29/2022 revealed LVH with preserved systolic function and at least moderate aortic stenosis. Cardiac catheterization performed 07/22/2017 revealed normal coronary arteries. Normal left ventricular end-diastolic pressure. Review Of Systems: At the time of my exam: CONSTITUTIONAL: Denies fever or chills. HEENT: Denies blurred vision, vision changes, or eye pain. Denies hemoptysis CARDIOVASCULAR: Denies chest pain. Denies orthopnea. Denies PND. Denies palpitations RESPIRATORY: Denies shortness of breath. GASTROINTESTINAL: Denies abdominal pain. Denies nausea or vomiting. HEMATOLOGIC: Denies bleeding disorders. GENITOURINARY: Denies any blood in urine. SKIN: Denies pruitis. Denies rash. Physical examination: Gen: This is a 77-year-old female in no acute distress VS: reviewed HEENT: Head is atraumatic, normocephalic. Pupils equal, round. Sclerae is anicteric. NECK: Supple. No JVD. LUNGS: Clear to auscultation. No wheezes or rhonchi. No intercostal retractions. HEART: Regular rate and rhythm. No murmur. ABDOMEN: Soft No tenderness. + Ventral hernia right upper/mid quadrant EXTREMITIES: No pedal edema. No calf tenderness. NEUROLOGICAL: Patient is awake, alert and oriented x3. Assessment: Atypical chest pain, acute coronary syndrome ruled out with negative troponins Hypertension Hiatal hernia Lap band adjustment yesterday Morbid obesity Plan: Resume patient's home cardiac medications Obtain 2-D echocardiogram and Doppler study to assess cardiac structure and function If echocardiogram is unremarkable, patient is cleared for discharge and may follow-up with Dr. Solis in 1 to 2 weeks. Thank you kindly for this consultation. Nurse practitioner note has been reviewed, I agree with documented findings and plan of care. Patient was seen and examined. Past Medical History Past Medical History: Blood Disorder, Cancer, GERD/Reflux, Hyperlipidemia, Hyp ertension, Osteoarthritis (OA) Additional Past Medical History / Comment(s): Current SOB, SEVERE IRON DEFICIENCY ANEMIA-iron infusions q 2-3 months, last July 16. Hx CERVICAL CA with radiation in 1979, heart murmur, urinary incontinence, bronchitis X3 in last yr. History of Any Multi-Drug Resistant Organisms: None Reported Past Surgical History: Bariatric Surgery, Bladder Surgery, Hernia Repair, Joint Replacement, Orthopedic Surgery, Tonsillectomy Additional Past Surgical History / Comment(s): RT SHOULDER ROTATOR CUFF x 2, LAP BAND, RT knee replacement, BLADDER SUSP, EUGENIA carpal tunnel, EUGENIA CATARACT, PANNICULECTOMY, COLONOSCOPY, trigger finger X3-4. Past Anesthesia/Blood Transfusion Reactions: Previous Problems w/ Anesthesia Additional Past Anesthesia/Blood Transfusion Reaction / Comment(s): STATES HAD RESPIRATORY ISSUES/COUGHING POST OP, O2 SAT LOW(HAD BLOCK IN NECK) with PAST ROTATOR CUFF SX, 2ND SHOULDER SURGERY HAD NO PROBLEMS. Past Psychological History: No Psychological Hx Reported Smoking Status: Never smoker Past Alcohol Use History: None Reported Past Drug Use History: None Reported - Past Family History Mother Family Medical History: Cancer Additional Family Medical History / Comment(s): LUNG CA Medications and Allergies Home Medications Medication Instructions Recorded Confirmed Type Omeprazole 40 mg PO DAILY 05/27/22 04/01/23 History Aspirin/Sod Bicarb/Citric Acid 1 tab PO DAILY PRN 04/01/23 04/01/23 History [Kristi-[place] Original Tab Eff] Lisinopril-Hctz 20-12.5 mg 1 tab PO DAILY 04/01/23 04/01/23 History [Zestoretic 20-12.5] Allergies Allergy/AdvReac Type Severity Reaction Status Date / Time Sulfa (Sulfonamide Allergy Anaphylaxis Verified 04/01/23 14:57 Antibiotics) & Rash Physical Exam Vitals: Vital Signs Temp Pulse Pulse Pulse Resp BP BP 04/02/23 00:33 97.5 F L 76 16 04/01/23 20:55 97.6 F 68 16 106/65 04/01/23 20:23 71 18 117/71 04/01/23 17:32 76 20 149/79 04/01/23 17:00 78 16 143/74 04/01/23 16:00 82 80 H 134/75 04/01/23 14:12 24 04/01/23 14:10 68 04/01/23 14:09 68 16 156/102 04/01/23 13:23 98.1 F 79 18 182/107 BP Pulse Ox 04/02/23 00:33 123/71 90 L 04/01/23 20:55 94 L 04/01/23 20:23 95 04/01/23 17:32 98 04/01/23 17:00 98 04/01/23 16:00 94 L 04/01/23 14:12 04/01/23 14:10 04/01/23 14:09 98 04/01/23 13:23 98 Intake and Output 04/01/23 04/02/23 04/02/23 22:59 06:59 14:59 Other: # Voids 1 5 # Bowel Movements 1 Weight 113.398 kg Results 04/01/23 14:06 04/01/23 14:06 Cardiac Enzymes 04/01/23 04/01/23 04/01/23 Range/Units 14:06 14:06 16:55 AST 30 (14-36) U/L Troponin I 0.020 0.015 (0.000-0.034) ng/mL 04/01/23 Range/Units 20:06 AST (14-36) U/L Troponin I 0.027 (0.000-0.034) ng/mL Coagulation 04/01/23 Range/Units 14:06 PT 11.4 (10.0-12.5) sec APTT 24.2 (22.0-30.0) sec CBC 04/01/23 Range/Units 14:06 WBC 7.9 (3.8-10.6) k/uL RBC 5.55 H (3.80-5.40) m/uL Hgb 13.3 (11.4-16.0) gm/dL Hct 42.6 (34.0-46.0) % Plt Count 205 (150-450) k/uL Comprehensive Metabolic Panel 04/01/23 Range/Units 14:06 Sodium 139 (137-145) mmol/L Potassium 4.0 (3.5-5.1) mmol/L Chloride 99 (98-107) mmol/L Carbon Dioxide 34 H (22-30) mmol/L BUN 14 (7-17) mg/dL Creatinine 0.78 (0.52-1.04) mg/dL Glucose 121 H (74-99) mg/dL Calcium 9.3 (8.4-10.2) mg/dL AST 30 (14-36) U/L ALT 27 (4-34) U/L Alkaline Phosphatase 140 H (38-126) U/L Total Protein 7.1 (6.3-8.2) g/dL Albumin 4.1 (3.5-5.0) g/dL Current Medications Generic Name Dose Route Start Last Admin Trade Name Freq PRN Reason Stop Dose Admin Aspirin 81 mg 04/02/23 09:00 Aspirin 81 Mg PO DAILY [facility] Lisinopril/HCTZ 1 each 04/01/23 17:15 04/01/23 18:28 Lisinopril-Hctz 20-12.5 Mg 1 Each Tab PO 1 each DAILY L[facility]LIE Administration Heparin Sodium (Porcine) 5,000 unit 04/02/23 00:00 04/01/23 23:15 Heparin Sodium,Porcine 5,000 Unit/Ml 1 Ml Vial SQ 5,000 unit Q8HR LESLIE Administration Ceftriaxone Sodium 2 gm/ 50 mls @ 100 mls/hr 04/01/23 18:00 04/01/23 22:07 Sodium Chloride IVPB 100 mls/hr Q24HR LESLIE Administration Protocol Nitroglycerin 0.4 mg 04/01/23 16:22 Nitroglycerin Sl Tabs 0.4 Mg Tab SUBLINGUAL Q5M PRN Chest Pain Nitroglycerin 1 inch 04/01/23 18:00 04/02/23 06:27 Nitroglycerin Oint 1 Inch/Gm Packet TOPICAL Not Given Q6HR [facility] Pantoprazole Sodium 40 mg 04/02/23 07:30 04/02/23 06:27 Pantoprazole 40 Mg Tablet PO 40 mg AC-[id number] [facility] Administration Intake and Output 04/01/23 04/02/23 04/02/23 22:59 06:59 14:59 Other: # Voids 1 5 # Bowel Movements 1 Weight 113.398 kg 04/01/23 14:06 04/01/23 14:06
[2023-04-02] MEDS: MAG HYDROX/AL HYDROX/SIMETH 30 ML, HYOSCYAMINE ELIXIR 10 ML, LIDOCAINE VISCOUS 10 ML PO ONE (10:05)
[2023-04-02 10:49] LABS: HCT 39.2 % (37.2-46.3); HGB 11.8 g/dL (12.0-15.0); MCH 22.8 pg (27.0-32.0); MCHC 30.1 g/dL (32.0-37.0); MCV 75.8 FL (80.0-97.0); Mean Platelet Volume 10.2 FL (9.5-12.2); NRBC Per 100 WBC 0 X 10*3/uL (0.00-0.01); Platelet Count 201 X 10*3/uL (140-440); RBC 5.17 X 10*6/uL (4.10-5.20); WBC 7.61 X 10*3/uL (4.50-10.00)
[2023-04-02 11:42] LABS: BUN/Creat Ratio 15.75 Ratio (12.00-20.00); Blood Urea Nitrogen 12.6 mg/dL (9.0-27.0); Calcium 9.4 mg/dL (8.7-10.3); Carbon Dioxide 27.9 mmol/L (21.6-31.8); Chloride 102 mmol/L (96-109); Chol/HDL Ratio 3.36 Ratio; Glucose 111 mg/dL (70-110); LDL Cholesterol,Calculated 76.4 mg/dL (0.0-131.0); Sodium 140 mmol/L (135-145)
--- NOTE | 2023-04-02 11:44 | P.PN ---
Subjective Progress Note Date: 04/02/23 Hospital course: Patient is a very pleasant 77-year-old female with a past medical history of hypertension, hyperlipidemia, GERD, iron deficiency anemia, and previous bariatric surgery with lap band placement. Patient recently underwent evaluation by Dr. Hyatt secondary to movement/displacement of her Lap-Band and had fluid removed from band on 03/30/2023. On Wednesday patient began experiencing some pains in her chest that she believed were secondary to gastric reflux. She describes these pains as a pressure-like sensation to her midsternal chest. Patient reports she took an Kristi-[place] and some Tums and pain eventually went away, but came back multiple times waxing and waning throughout the day and evening. On , pain to her midsternal chest returned accompanied by nausea and radiated into her back and right lower jaw accompanied by mild nausea and shortness of breath. In addition, pt reported she has been dealing with urinary urgency and frequency reporting urinating "all the time". She denied having any hematuria or dysuria. She reports that her PCP is Dr. Price and that she follows with [facility] under the care of Dr. Solis and was scheduled to see him in office and undergo some testing on April 14. Upon arrival to the emergency department, patient underwent full evaluation. Vital signs upon arrival show blood pressure 182/107, heart rate 79, respiratory rate 18, temp 98.1 F, and SpO2 of 98% on room air. EKG was completed showing normal sinus rhythm at 72 bpm with T wave inversion in leads III otherwise no further significant T wave or ST abnormalities showing no signs of acute ischemia. Chest x-ray completed showing mild cardiomegaly with mild pulmonary congestion. Labs completed and reviewed. CBC unremarkable. Coagulation profile normal findings. BMP revealing mild hypercarbia with bicarb of 34 otherwise normal findings. Blood glucose was 121. Magnesium slightly low at 1.6. Liver profile unremarkable. Initial troponin 0.020 and proBNP of 349. Urinalysis positive for infection showing positive for blood, leukocytes, 23 RBCs, and greater than 182 WBCs. Patient was started on IV antibiotics Rocephin for treatment of UTI and admitted under our services with consultation to c ardiology and general surgery. Troponins trending resulting at 0.020, 0.015, and 0.027. General surgery evaluated and placed order for fluoroscopic upper GI with esophagus. Patient developed significant hematuria with large clots. Consult also placed to urology as patient has a history of cervical cancer status post radiation treatments resulting in damage to bladder and later bladder surgery.. Physical exam: Patient seen and fully evaluated at the bedside this morning. She again reported episode of pain in her chest she reports it actually started in her epigastric region and radiated up into her chest and into her right lower jaw. She was again provided with a GI cocktail ordered by cardiology team and has since had improvement. This morning patient reports in addition to the urinary frequency and urgency she was experiencing she is now experiencing significant hematuria with large clots. Consult placed to urology. Vital signs reviewed and stable. General: Nontoxic, no distress and appears stated age. Derm: Skin warm and dry, normal coloration for ethnicity. Head: Atraumatic, normocephalic and symmetric. Eyes: EOMs intact, no lid lag, and anicteric sclera Mouth: no lip lesions, mucus membranes moist Cardiovascular: regular rate and rhythm with normal S1S2, systolic murmur, pos itive posterior tibial pulses bilaterally, and cap refill < 2 seconds. Lungs: Respirations even, regular, and unlabored on room air. Lungs CTA bilaterally, no rhonchi, no rales, no wheezing, and no accessory muscle usage. Abdominal: Obese abdomen, soft, nontender to palpation, no guarding, no elizabeth reciable organomegaly Ext: ROM intact. No gross muscle atrophy, no edema, no contractures Neuro: Speech clear, face symmetrical and CN II-XII grossly intact with no noted focal neuro deficits Psych: Alert and oriented to person, place, time, and situation. Appropriate and pleasant affect. Assessment and Plan of Care: Chest pain, acute coronary event ruled out Cardiomegaly with mild pulmonary congestion Hypertension Hyperlipidemia GERD History of bariatric surgery with gastric band, recent removal of fluid -Cardiology evaluated ruling out acute coronary event, in agreement with echocardiogram and if negative patient cleared from cardiac perspective for discharge. -General surgery evaluated, placed order for fluoroscopic upper GI with esophagus -Continue telemetry monitoring. -Troponins trending resulting at 0.020, 0.015, and 0.027. -Cardiac diet -Aspirin 81 mg daily and lisinopril/hydrochlorothiazide 20-12.5 mg daily -GI cocktail x 1 dose consisting of Maalox, lidocaine, and Levsin was given -Continue GI prophylaxis with Protonix 40 mg daily. -Lipid profile pending -Echocardiogram to be completed Acute cystitis with hematuria Continue IV antibiotics with Rocephin 2 g IVPB every 24 hours pending urine culture results. Follow-up on urine culture. Urology consulted Hypomagnesemia Replaced with magnesium sulfate 2 g IVPB. Will continue to monitor for resolution with repeat morning magnesium levels. Additional orders to be placed as indicated based upon these findings. Data and imaging reviewed: -Morning labs reviewed. CBC showing stable normocytic anemia with hemoglobin of 11.8. BMP is pending. Troponins trending resulting at 0.020, 0.015, and 0.027. -Repeat morning EKG was reviewed again showing sinus rhythm at 62 bpm with no noted T wave or ST abnormalities showing no signs of acute ischemia upon personal review and interpretation. -Discussed plan of care in detail with general surgery. Will review and follow- up on results of fluoroscopic upper GI once report is available. CODE STATUS: Full code DVT prophylaxis: Heparin Anticipated discharge date: 24 to [address]: Home Patient was seen independently by Nurse Practitioner. This document was prepared using [employer] dictation software. Please allow for errors in imagery analyst while rare they do occur. I reviewed the documentation as provided by the ELIZABETH above, who is the original author of this note. I agree with the documented assessment and plan, with the following changes: none Objective - Vital Signs Vital signs: Vital Signs Temp 97.8 F 04/02/23 07:00 Pulse 77 04/02/23 07:00 Resp 18 04/02/23 07:00 BP 146/53 04/02/23 07:00 Pulse Ox 95 04/02/23 07:00 FiO2 Intake & Output 04/01/23 04/02/23 04/02/23 18:59 06:59 18:59 Weight 113.398 kg Other: # Voids 5 # Bowel Movements 1 - Labs CBC & Chem 7: 04/02/23 06:02 04/02/23 06:02 Labs: Abnormal Lab Results - Last 24 Hours (Table) 04/01/23 04/01/23 04/01/23 Range/Units 14:06 14:06 16:36 RBC 5.55 H (3.80-5.40) m/uL MCV 76.7 L (80.0-100.0) fL MCH 24.0 L (25.0-35.0) pg RDW 16.6 H (11.5-15.5) % Carbon Dioxide 34 H (22-30) mmol/L Glucose 121 H (74-99) mg/dL Alkaline Phosphatase 140 H (38-126) U/L Urine Appearance Cloudy H (Clear) Urine Blood Moderate H (Negative) Ur Leukocyte Esterase Large H (Negative) Urine RBC 23 H (0-5) /hpf Urine WBC >182 H (0-5) /hpf Urine Bacteria Moderate H (None) /hpf Urine Mucus Rare H (None) /hpf
--- NOTE | 2023-04-02 12:26 | FL ---
EXAMINATION TYPE: FL UGI w esophagus DATE OF EXAM: 04/02/2023 COMPARISON: NONE HISTORY: Dysphagia TECHNIQUE: A single contrast UGI study is performed. A total of 32 seconds of fluoroscopic time was utilized during procedure and 4 images obtained. Total dose area product (DAP) in uGy*m?, mGy*cm? (o r similar): Not provided. FINDINGS: The patient was able to take a couple swallows of barium was demonstrated distended esophagus with nu merous tertiary contractions and near-complete obstruction at the level of the lap band. Small amount of contrast was seen to spill into the stomach or small bowel. IMPRESSION: 1. Dilated esophagus with tertiary contractions and near complete obstruction at the level of the lap band. Only a tiny amount of contrast seen passing through the band.
--- NOTE | 2023-04-02 12:48 | P.GSCN ---
History of Present Illness Consult date: 04/02/23 History of present illness: CHIEF COMPLAINT: Chest pain HISTORY OF PRESENT ILLNESS: This is a 77-year-old female with a known history of lap band placed several years ago. She had 7 cc of fluid removed from the Lap- Band on Wednesday this week by Dr. Lorenz. Patient had been having issues with pain dysphagia and occasional vomiting. Patient reports that later on Wednesday and also on Wednesday she has been having these episodes of severe heartburn as well as pain in the middle of the abdomen radiating up into the esophagus causing pressure and burning. She initially thought it might be chest pain she came into the ER to be evaluated. She was seen by cardiology. Troponins are negative and they reviewed ruled out acute coronary syndrome. Patient does have a history of hiatal hernia. She is also having hematuria and being treated for UTI. Patient also had elevated blood pressure on admission. Patient reports her nausea and abdominal pain did improve with a GI cocktail. PAST MEDICAL HISTORY: See below PAST SURGICAL HISTORY: See below MEDICATIONS: See below ALLERGIES: See below SOCIAL HISTORY: No illicit drug use. REVIEW OF SYSTEMS: CONSTITUTIONAL: Denies fever or chills. HEENT: Denies blurred vision, vision changes, or eye pain. Denies hemoptysis CARDIOVASCULAR: Denies chest pain or pressure. RESPIRATORY: No shortness of breath. GASTROINTESTINAL: See HPI for pertinent findings HEMATOLOGIC: Denies bleeding disorders. GENITOURINARY: Denies any blood in urine or increased urinary frequency. SKIN: Denies pruitis. Denies rash. PHYSICAL EXAM: VITAL SIGNS: Reviewed GENERAL: Well-developed in no acute distress. HEENT: No sclera icterus. Extraocular movements grossly intact. Moist buccal mucosa. Head is atraumatic, normocephalic. No nasal drainage. ABDOMEN: Soft. Obese. Nondistended. Nontender during exam NEUROLOGIC: Alert and oriented. Cranial nerves II through XII grossly intact. LABORATORY DATA: WBC 7.61 Hgb 11.8 platelets 201 Sodium 140 potassium 4.0 creatinine 0.8 Troponins negative x 3 sets IMAGING: ASSESSMENT: 1. Esophageal pressure with nausea 2. History of dysphagia PLAN: -Upper GI ordered for further evaluation of patient's esophageal pressure, nausea and dysphagia. Results reported dilated esophagus with tertiary contractions and near complete obstruction at the level of the Lap-Band. -Further recommendations forthcoming per surgeon -Keep patient n.p.o. -Continue supportive care Physician Marionette Performer note has been reviewed by physician. Signing provider agrees with the documented findings, assessment, and plan of care. Past Medical History Past Medical History: Blood Disorder, Cancer, GERD/Reflux, Hyperlipidemia, Hypertension, Osteoarthritis (OA) Additional Past Medical History / Comment(s): Current SOB, SEVERE IRON DEFICIENCY ANEMIA-iron infusions q 2-3 months, last July 16. Hx CERVICAL CA with radiation in 1979, heart murmur, urinary incontinence, bronchitis X3 in last yr. History of Any Multi-Drug Resistant Organisms: None Reported Past Surgical History: Bariatric Surgery, Bladder Surgery, Hernia Repair, Joint Replacement, Orthopedic Surgery, Tonsillectomy Additional Past Surgical History / Comment(s): RT SHOULDER ROTATOR CUFF x 2, LAP BAND, RT knee replacement, BLADDER SUSP, EUGENIA carpal tunnel, EUGENIA CATARACT, PANNICULECTOMY, COLONOSCOPY, trigger finger X3-4. Past Anesthesia/Blood Transfusion Reactions: Previous Problems w/ Anesthesia Additional Past Anesthesia/Blood Transfusion Reaction / Comm: STATES HAD RESPIRATORY ISSUES/COUGHING POST OP, O2 SAT LOW(HAD BLOCK IN NECK) with PAST ROTATOR CUFF SX, 2ND SHOULDER SURGERY HAD NO PROBLEMS. Past Psychological History: No Psychological Hx Reported Smoking Status: Never smoker Past Alcohol Use History: None Reported Past Drug Use History: None Reported - Past Family History Mother Family Medical History: Cancer Additional Family Medical History / Comment(s): LUNG CA Medications and Allergies Home Medications Medication Instructions Recorded Confirmed Type Omeprazole 40 mg PO DAILY 05/27/22 04/01/23 History Aspirin/Sod Bicarb/Citric Acid 1 tab PO DAILY PRN 04/01/23 04/01/23 History [Kristi-[place] Original Tab Eff] Lisinopril-Hctz 20-12.5 mg 1 tab PO DAILY 04/01/23 04/01/23 History [Zestoretic 20-12.5] Allergies Allergy/AdvReac Type Severity Reaction Status Date / Time Sulfa (Sulfonamide Allergy Anaphylaxis Verified 04/01/23 14:57 Antibiotics) & Rash Surgical - Exam Vital Signs Temp Pulse Resp BP Pulse Ox 98.1 F 79 18 182/107 98 04/01/23 13:23 04/01/23 13:23 04/01/23 13:23 04/01/23 13:23 04/01/23 13:23 Results - Labs 04/02/23 06:02 04/02/23 06:02 Abnormal Lab Results - Last 24 Hours (Table) 04/01/23 04/01/23 04/01/23 Range/Units 14:06 14:06 16:36 RBC 5.55 H (3.80-5.40) m/uL Hgb (12.0-15.0) g/dL MCV 76.7 L (80.0-100.0) fL MCH 24.0 L (25.0-35.0) pg MCHC (32.0-37.0) g/dL RDW 16.6 H (11.5-15.5) % Carbon Dioxide 34 H (22-30) mmol/L Glucose 121 H (74-99) mg/dL Alkaline Phosphatase 140 H (38-126) U/L Urine Appearance Cloudy H (Clear) Urine Blood Moderate H (Negative) Ur Leukocyte Esterase Large H (Negative) Urine RBC 23 H (0-5) /hpf Urine WBC >182 H (0-5) /hpf Urine Bacteria Moderate H (None) /hpf Urine Mucus Rare H (None) /hpf 04/02/23 04/02/23 Range/Units 06:02 06:02 RBC (3.80-5.40) m/uL Hgb 11.8 L (12.0-15.0) g/dL MCV 75.8 L (80.0-100.0) fL MCH 22.8 L (25.0-35.0) pg MCHC 30.1 L (32.0-37.0) g/dL RDW 17.0 H (11.5-15.5) % Carbon Dioxide (22-30) mmol/L Glucose 111 H (74-99) mg/dL Alkaline Phosphatase (38-126) U/L Urine Appearance (Clear) Urine Blood (Negative) Ur Leukocyte Esterase (Negative) Urine RBC (0-5) /hpf Urine WBC (0-5) /hpf Urine Bacteria (None) /hpf Urine Mucus (None) /hpf Diabetes panel 04/01/23 04/02/23 Range/Units 14:06 06:02 Sodium 139 140 (137-145) mmol/L Potassium 4.0 4.0 (3.5-5.1) mmol/L Chloride 99 102 (98-107) mmol/L Carbon Dioxide 34 H 27.9 (22-30) mmol/L BUN 14 12.6 (7-17) mg/dL Creatinine 0.78 0.8 (0.52-1.04) mg/dL Glucose 121 H 111 H (74-99) mg/dL Calcium 9.3 9.4 (8.4-10.2) mg/dL AST 30 (14-36) U/L ALT 27 (4-34) U/L Alkaline Phosphatase 140 H (38-126) U/L Total Protein 7.1 (6.3-8.2) g/dL Albumin 4.1 (3.5-5.0) g/dL Triglycerides 131.00 (0.00-149.00) mg/dL HDL Cholesterol 43.40 (40.00-60.00) mg/dL Calcium panel 04/01/23 04/02/23 Range/Units 14:06 06:02 Calcium 9.3 9.4 (8.4-10.2) mg/dL Albumin 4.1 (3.5-5.0) g/dL Pituitary panel 04/01/23 04/02/23 Range/Units 14:06 06:02 Sodium 139 140 (137-145) mmol/L Potassium 4.0 4.0 (3.5-5.1) mmol/L Chloride 99 102 (98-107) mmol/L Carbon Dioxide 34 H 27.9 (22-30) mmol/L BUN 14 12.6 (7-17) mg/dL Creatinine 0.78 0.8 (0.52-1.04) mg/dL Glucose 121 H 111 H (74-99) mg/dL Calcium 9.3 9.4 (8.4-10.2) mg/dL Adrenal panel 04/01/23 04/02/23 Range/Units 14:06 06:02 Sodium 139 140 (137-145) mmol/L Potassium 4.0 4.0 (3.5-5.1) mmol/L Chloride 99 102 (98-107) mmol/L Carbon Dioxide 34 H 27.9 (22-30) mmol/L BUN 14 12.6 (7-17) mg/dL Creatinine 0.78 0.8 (0.52-1.04) mg/dL Glucose 121 H 111 H (74-99) mg/dL Calcium 9.3 9.4 (8.4-10.2) mg/dL Total Bilirubin 0.9 (0.2-1.3) mg/dL AST 30 (14-36) U/L ALT 27 (4-34) U/L Alkaline Phosphatase 140 H (38-126) U/L Total Protein 7.1 (6.3-8.2) g/dL Albumin 4.1 (3.5-5.0) g/dL
[2023-04-02] MEDS: IV FLUID CONTINUATION 1,000 ML IV ONE (14:48)
[2023-04-02] MEDS ORDERED: PROPOFOL 10 MG/ML 20 ML VIAL IV ONE (14:50)
[2023-04-02] MEDS ORDERED: LIDOCAINE 1% INJ 10MG/ML (20 ML MDV) ONE (14:50)
--- NOTE | 2023-04-02 15:25 | P.PCN ---
Date of Procedure: 04/02/23 Procedure(s) Performed: Preoperative Dx: Dysphagia, GERD, esophageal obstruction Postoperative Dx: Mild gastritis Procedure: EGD with Bx Anesthesia: Sedation Endoscopist: Dr. Hyatt Specimens: Antrum Endoscopic Procedure: The patient was on the endoscopy table in the left decubitus position. The Olympus gastroscope was inserted into the oropharynx and passed under direct visualization to the region of the third portion of the duodenum. From that point the scope was slowly withdrawn inspecting all radha faces carefully. There were no neoplastic inflammatory or polypoid lesions throughout the duodenum. The pylorus was widely patent. The stomach was carefully inspected. There was mild gastritis present. A biopsy of the antrum took place to rule out H. pylori. Retroflexion revealed a normal band plication. No evidence of erosion or prolapse was seen. The pouch above the Lap-Band appeared normal sized. There was no definite hiatal hernia seen. The patient's esophagus was carefully examined. There did appear to be some residual barium present but there was no evidence of obstruction, stricture, or foreign body. There was no food within the stomach to suggest foreign body. The proximal and midesophagus appeared normal as well. There was no evidence of inflammatory changes. The patient was then taken to the recovery room in stable condition per anesthesia guidelines. Recommendations: Discussed endoscopic findings with the patient's daughter. Await biopsy results. Etiology for patient's symptoms of dysphagia and GERD may be related to esophageal dysmotility and laxity secondary to chronic esophageal dilation. The patient's band was emptied earlier this week which should with time lead to resolution of the patient's esophageal dysmotility. Certainly this morning's upper GI showing no passage of the barium past the Lap-Band site was unusual. I do not see any signs of gastric prolapse or obstruction anywhere. Resume liquid diet. If complaints of dysphagia persist may require lap band removal. Hopefully with time the patient's esophageal motility issues will reso lve. Will follow.
[2023-04-02] MEDS: ACETAMINOPHEN TAB 325 MG TAB PO PRN (17:23)
[2023-04-03 07:57] VITALS: RESP 17
--- NOTE | 2023-04-03 07:57 | P.GSCN ---
History of Present Illness Consult date: 04/03/23 Reason for Consult: UTI with hematuria Requesting physician: Vijay Adorno History of present illness: The patient is a 77-year-old white female admitted with chest pain presumed to be due to gastric reflux. She is also experiencing gross hematuria. The patient has a known history of radiation cystitis. She has undergone a sling procedure in the past. She denies stress incontinence, but does report urinary frequency and urge incontinence. She reports double voiding. She states that she has been treated for 4 UTIs in the past 6 months. Review of Systems - Cardiovascular Reports high blood pressure - Gastrointestinal Reports heartburn - Genitourinary Genitourinary: Reports hematuria, Reports urge incontinence, Reports urinary frequency Past Medical History Past Medical History: Blood Disorder, Cancer, GERD/Reflux, Hyperlipidemia, Hypertension, Osteoarthritis (OA) Additional Past Medical History / Comment(s): Current SOB, SEVERE IRON DEFICIENCY ANEMIA-iron infusions q 2-3 months, last July 16. Hx CERVICAL CA with radiation in 1979, heart murmur, urinary incontinence, bronchitis X3 in last yr. History of Any Multi-Drug Resistant Organisms: None Reported Past Surgical History: Bariatric Surgery, Bladder Surgery, Hernia Repair, Joint Replacement, Orthopedic Surgery, Tonsillectomy Additional Past Surgical History / Comment(s): RT SHOULDER ROTATOR CUFF x 2, LAP BAND, RT knee replacement, BLADDER SUSP, EUGENIA carpal tunnel, EUGENIA CATARACT, PANNI CULECTOMY, COLONOSCOPY, trigger finger X3-4. Past Anesthesia/Blood Transfusion Reactions: Previous Problems w/ Anesthesia Additional Past Anesthesia/Blood Transfusion Reaction / Comm: STATES HAD RESPIRATORY ISSUES/COUGHING POST OP, O2 SAT LOW(HAD BLOCK IN NECK) with PAST ROTATOR CUFF SX, 2ND SHOULDER SURGERY HAD NO PROBLEMS. Past Psychological History: No Psychological Hx Reported Smoking Status: Never smoker Past Alcohol Use History: None Reported Past Drug Use History: None Reported - Past Family History Mother Family Medical History: Cancer Additional Family Medical History / Comment(s): LUNG CA Medications and Allergies Home Medications Medication Instructions Recorded Confirmed Type Omeprazole 40 mg PO DAILY 05/27/22 04/01/23 History Aspirin/Sod Bicarb/Citric Acid 1 tab PO DAILY PRN 04/01/23 04/01/23 History [Kristi-[place] Original Tab Eff] Lisinopril-Hctz 20-12.5 mg 1 tab PO DAILY 04/01/23 04/01/23 History [Zestoretic 20-12.5] Allergies Allergy/AdvReac Type Severity Reaction Status Date / Time Sulfa (Sulfonamide Allergy Anaphylaxis Verified 04/01/23 14:57 Antibiotics) & Rash Surgical - Exam Vital Signs Temp Pulse Resp BP Pulse Ox 98.1 F 79 18 182/107 98 04/01/23 13:23 04/01/23 13:23 04/01/23 13:23 04/01/23 13:23 04/01/23 13:23 - General well developed, well nourished, no distress - Respiratory normal respiratory effort - Abdomen Abdomen: soft, non tender, no guarding, no rigid, no rebound - Psychiatric oriented to time, oriented to person, oriented to place, speech is normal, memory intact Results - Labs 04/02/23 06:02 04/02/23 06:02 Abnormal Lab Results - Last 24 Hours (Table) 04/02/23 04/02/23 Range/Units 06:02 06:02 Hgb 11.8 L (12.0-15.0) g/dL MCV 75.8 L (80.0-97.0) FL MCH 22.8 L (27.0-32.0) pg MCHC 30.1 L (32.0-37.0) g/dL RDW 17.0 H (11.5-14.5) % Glucose 111 H (70-110) mg/dL Microbiology - Last 24 Hours (Table) 04/01/23 16:14 Urine Culture - Preliminary Urine,Clean Catch Gram Neg Bacilli Diabetes panel 04/02/23 Range/Units 06:02 Sodium 140 (135-145) mmol/L Potassium 4.0 (3.5-5.5) mmol/L Chloride 102 (96-109) mmol/L Carbon Dioxide 27.9 (21.6-31.8) mmol/L BUN 12.6 (9.0-27.0) mg/dL Creatinine 0.8 (0.6-1.5) mg/dL Glucose 111 H (70-110) mg/dL Calcium 9.4 (8.7-10.3) mg/dL Triglycerides 131.00 (0.00-149.00) mg/dL HDL Cholesterol 43.40 (40.00-60.00) mg/dL Calcium panel 04/02/23 Range/Units 06:02 Calcium 9.4 (8.7-10.3) mg/dL Pituitary panel 04/02/23 Range/Units 06:02 Sodium 140 (135-145) mmol/L Potassium 4.0 (3.5-5.5) mmol/L Chloride 102 (96-109) mmol/L Carbon Dioxide 27.9 (21.6-31.8) mmol/L BUN 12.6 (9.0-27.0) mg/dL Creatinine 0.8 (0.6-1.5) mg/dL Glucose 111 H (70-110) mg/dL Calcium 9.4 (8.7-10.3) mg/dL Adrenal panel 04/02/23 Range/Units 06:02 Sodium 140 (135-145) mmol/L Potassium 4.0 (3.5-5.5) mmol/L Chloride 102 (96-109) mmol/L Carbon Dioxide 27.9 (21.6-31.8) mmol/L BUN 12.6 (9.0-27.0) mg/dL Creatinine 0.8 (0.6-1.5) mg/dL Glucose 111 H (70-110) mg/dL Calcium 9.4 (8.7-10.3) mg/dL - Imaging CT scan - abdomen: report reviewed, image reviewed Assessment and Plan Assessment: Preliminary urine culture shows greater than 100,000 gram-negative bacilli. A CT scan of the abdomen performed in December 2022 showed 2 large left simple renal cyst, as well as a small right renal lesion too small to characterize. There was no evidence of urolithiasis, hydronephrosis, or renal mass. It is likely that the hematuria is due to cystitis, with components of both infectious cystitis and radiation cystitis. (1) Gross hematuria Current Visit: Yes Status: Acute Code(s): R31.0 - GROSS HEMATURIA SNOMED Code(s): 443973585 (2) Urinary tract infection, site not specified Current Visit: Yes Status: Acute Code(s): N39.0 - URINARY TRACT INFECTION, SITE NOT SPECIFIED SNOMED Code(s): 81182040 (3) Renal cyst Current Visit: Yes Status: Acute Code(s): N28.1 - CYST OF KIDNEY, ACQUIRED SNOMED Code(s): 321421936 Plan: Continue ceftriaxone, pending the final urine culture results. Bladder Scan will be utilized to assess bladder emptying. Time with Patient: Greater than 30
--- NOTE | 2023-04-03 13:22 | CA ---
Transthoracic Echo Report Name: Deisi Salazar Age: 77 Gender: F : 1945 Exam Date: 04/02/2023 13:24 Exam Location: [facility] Ht (in): 60 Wt (lb): 250 Ordering Physician: Vijay Adorno Attending/Referring Phys: Acupressurist Eileen Stanley RDCS Procedure CPT: Indications: Evaluate structure and function Cardiac Hx: Technical Quality: Technically difficult study Contrast 1: Definity Total Dose (mL): 2 Contrast 2: Total Dose (mL): MEASUREMENTS (Male / Female) Normal Values 2D ECHO LV Diastolic Diameter PLAX 3.6 cm 4.2 - 5.9 / 3.9 - 5.3 cm LV Systolic Diameter PLAX 2.6 cm IVS Diastolic Thickness 1.7 cm 0.6 - 1.0 / 0.6 - 0.9 cm LVPW Diastolic Thickness 1.5 cm 0.6 - 1.0 / 0.6 - 0.9 cm LV Relative Wall Thickness 0.9 RV Internal Dim ED PLAX 3.6 cm LVOT Diameter 1.8 cm LA Volume 60.8 cm??? 18 - 58 / 22 - 52 cm??? LA Volume Index 26.8 cm???/m??? 16 - 28 cm???/m??? M-MODE Aortic Root Diameter MM 3.1 cm LA Systolic Diameter MM 4.7 cm LA Ao Ratio MM 1.5 AV Cusp Separation MM 1.3 cm DOPPLER AV Peak Velocity 298.0 cm/s AV Peak Gradient 35.5 mmHg AV Mean Velocity 214.4 cm/s AV Mean Gradient 20.5 mmHg AV Velocity Time Integral 67.2 cm LVOT Peak Velocity 114.7 cm/s LVOT Peak Gradient 5.3 mmHg LVOT Velocity Time Integral 26.7 cm LVOT Stroke Volume 67.6 cm??? LVOT Stroke Volume Index 32.9 ml/m??? LVOT Cardiac Index 2027.9 cm???/min???m??? AV Area Cont Eq vti 1.0 cm??? AV Area Cont Eq pk 1.0 cm??? MV Area PHT 3.1 cm??? Mitral E Point Velocity 89.5 cm/s Mitral A Point Velocity 114.6 cm/s Mitral E to A Ratio 0.8 MV Deceleration Time 242.8 ms MV E' Velocity 5.2 cm/s Mitral E to MV E' Ratio 17.3 TR Peak Velocity 266.4 cm/s TR Peak Gradient 28.4 mmHg Right Ventricular Systolic Press 32.9 mmHg FINDINGS Left Ventricle Moderately increased left ventricular wall thickness. Left ventricular cavity size normal. Normal left ventricular systolic function with no obvious regional wall motion abnormalities. Left ventricular ejection fraction is estimated at 55-60 %. Right Ventricle Mild right ventricular dilatation. Right ventricular systolic pressure within normal limits. Right Atrium Normal right atrial size. Left Atrium Mildly increased left atrial volume. Mitral Valve Structurally normal mitral valve. Mitral valve thickened. Mitral annular calcification. Aortic Valve Moderate aortic stenosis with a peak gradient of 36 mmHg and a mean gradient of 21 mmHg. Tricuspid Valve Structurally normal tricuspid valve. Mild tricuspid regurgitation. Pulmonic Valve Structurally normal pulmonic valve. Pericardium No pericardial effusion. Aorta Normal size aortic root and proximal ascending aorta. CONCLUSIONS Normal LV systolic function Calcific aortic valve with moderate stenosis Previewed by: Dr. Cruz Myles MD (Electronically Signed) Final Date: 03 April 2023 13:21
--- NOTE | 2023-04-03 14:26 | P.PN ---
Subjective Progress Note Date: 04/03/23 This is González Lundberg NP, I'm dictating on behalf of Dr. Myles's H&P and A&P. Patient was interviewed and examined. Patient is a pleasant 77-year-old female who presented to the hospital with chest pain. Patient today reports no chest pain, or any breathing issues. She reports that she is overall feeling okay today. Echocardiogram from yesterday reports normal LV systolic function, with calcific aortic valve with moderate stenosis and an ejection fraction of 55 to 60%. GENERAL: Well-appearing, well-nourished and in no acute distress. NECK: Supple without JVD or thyromegaly. LUNGS: Breath sounds clear to auscultation bilaterally. Respiration equal and unlabored. No wheezes, rales or rhonchi. HEART: Regular rate and rhythm without murmurs, rubs or gallops. S1 and S2 heard. EXTREMITIES: Normal range of motion, no edema. No clubbing or cyanosis. Peripheral pulses intact and strong. VITALS: Temp 97.4, pulse 60, respirations 17, blood pressure 145/79, O2 saturation 96% on room air TELEMETRY: Normal sinus rhythm LABS: White count 7.61, hemoglobin 11.8, platelets 201, sodium 140, potassium 4, BUN 12.6, creatinine 0.8, calcium 9.4, magnesium 2, triglycerides 131, cholesterol 146, LDL 76.4, HDL 43.4 IMPRESSION: 1. Atypical chest pain 2. Hypertension 3. Hiatal hernia 4. Lap-Band adjustment 5. Morbid obesity PLAN: Echocardiogram demonstrates normal ejection fraction with normal LV systolic function with a calcific aortic valve and moderate stenosis. From a cardiology standpoint the patient is cleared for discharge. Patient should follow-up with Dr. Solis in 1 to 2 weeks. Thank you for allowing us to participate in the care of this patient. Objective - Vital Signs Vital signs: Vital Signs Temp 97.4 F L 04/03/23 07:00 Pulse 60 04/03/23 07:00 Resp 17 04/03/23 07:00 BP 145/79 04/03/23 07:00 Pulse Ox 96 04/03/23 07:00 FiO2 Intake & Output 04/02/23 04/03/23 04/03/23 18:59 06:59 18:59 Intake Total 300 Output Total 0 0 Balance 300 0 0 Weight 113.398 kg Intake: IV 300 Output: Post Void Residual 0 Emesis 0 Other: Voiding Method Toilet Toilet # Voids 2 1 - Labs CBC & Chem 7: 04/02/23 06:02 04/02/23 06:02 Labs: Microbiology - Last 24 Hours (Table) 04/01/23 16:14 Urine Culture - Preliminary Urine,Clean Catch Gram Neg Bacilli
--- NOTE | 2023-04-03 15:16 | P.PN ---
Subjective Progress Note Date: 04/03/23 Patient is tolerating diet VITAL SIGNS: Reviewed GENERAL: Well-developed in no acute distress. HEENT: No sclera icterus. Extraocular movements grossly intact. Moist buccal mucosa. Head is atraumatic, normocephalic. No nasal drainage. ABDOMEN: Soft. Obese. Nondistended. Nontender during exam NEUROLOGIC: Alert and oriented. Cranial nerves II through XII grossly intact. LABORATORY DATA: WBC 7.61 Hgb 11.8 platelets 201 Sodium 140 potassium 4.0 creatinine 0.8 Troponins negative x 3 sets IMAGING: ASSESSMENT: 1. Esophageal pressure with nausea 2. History of dysphagia PLAN: -Upper GI ordered for further evaluation of patient's esophageal pressure, nausea and dysphagia. Results reported dilated esophagus with tertiary contractions and near complete obstruction at the level of the Lap-Band. EGD performed which showed no obstruction. Patient on regular diet and doing well -Further recommendations forthcoming per surgeon -Keep patient n.p.o. -Continue supportive care Objective - Vital Signs Vital signs: Vital Signs Temp 98.2 F 04/03/23 14:30 Pulse 63 04/03/23 14:30 Resp 17 04/03/23 14:30 BP 148/72 04/03/23 14:30 Pulse Ox 97 04/03/23 14:30 FiO2 Intake & Output 04/02/23 04/03/23 04/03/23 18:59 06:59 18:59 Intake Total 300 100 Output Total 0 0 Balance 300 0 100 Weight 113.398 kg Intake: IV 300 Oral 100 Output: Post Void Residual 0 Emesis 0 Other: Voiding Method Toilet Toilet # Voids 2 1 2 - Labs CBC & Chem 7: 04/02/23 06:02 04/02/23 06:02 Labs: Microbiology - Last 24 Hours (Table) 04/01/23 16:14 Urine Culture - Preliminary Urine,Clean Catch Gram Neg Bacilli
[2023-04-03 15:23] VITALS: BP 148/72; PULSE 63; TEMP 98.2
--- NOTE | 2023-04-03 15:23 | P.DS ---
Providers Date of admission: 04/02/23 12:02 Expected date of discharge: 04/03/23 Attending physician: Darinel Kan MD Consults: 04/01/23 16:22 Consult Physician Urgent Consulting Provider: [facility] Consult Reason/Comments: Chest pain Do you want consulting provider notified?: Yes 04/02/23 10:10 Consult Physician Routine Consulting Provider: Keon Hyatt Consult Reason/Comments: chest pain, believe to be normal symptoms after fluid taken out of lap band Do you want consulting provider notified?: Already Contacted 04/02/23 11:30 Consult Physician Routine Consulting Provider: Serg Lozano Consult Reason/Comments: hematuria with large clots, currently being tx for UTI Do you want consulting provider notified?: Yes Primary care physician: Solitario Price Hospital Course: Discharge Diagnosis: Complicated urinary tract infection, gram-negative bacilli Hematuria History of cervical cancer s/p radiation History of bladder suspension Chest pain History of obesity status post lap band Hospital Course: 77-year-old male female with recurrent UTIs, history of cervical cancer status post radiation, bladder suspension, obesity status post bariatric surgery with lap band, GERD, hypertension presented with chest pain. Vital signs upon arrival show blood pressure 182/107, heart rate 79, respiratory rate 18, temp 98.1 F, and SpO2 of 98% on room air. EKG was completed showing normal sinus rhythm at 72 bpm with T wave inversion in leads III otherwise no further significant T wave or ST abnormalities showing no signs of acute ischemia. Chest x-ray completed showing mild cardiomegaly with mild pulmonary congestion. Labs completed and reviewed. CBC unremarkable. Coagulation profile normal findings. BMP revealing mild hypercarbia with bicarb of 34 otherwise normal findings. Blood glucose was 121. Magnesium slightly low at 1.6. Liver profile unremarkable. Initial troponin 0.020 and proBNP of 349. Urinalysis positive for infection showing positive for blood, leukocytes, 23 RBCs, and greater than 182 WBCs. Patient was started on IV antibiotics Rocephin for treatment of UTI and admitted under our services with consultation to cardiology and general surgery. Troponins trending resulting at 0.020, 0.015, and 0.027. Echocardiogram showed normal LV systolic function, calcific aortic valve with moderate stenosis. Cardiology recommending outpatient follow-up. General surgery evaluated patient concern for esophageal obstruction. EGD showed no neoplastic, inflammatory or polypoid lesions, biopsies were taken due to mild gastritis. Likely has esophageal dysmotility and laxity secondary to chronic esophageal dilatation, patient's band was emptied earlier during the week. Patient tolerating oral intake at the time of discharge. Patient developed significant hematuria with large clots. Consult also placed to urology as patient has a history of cervical cancer status post radiation treatments resulting in damage to bladder and later bladder surgery.. Urology recommending continuing antibiotics. Hematuria likely in the setting of infectious cystitis and radiation cystitis. Patient seen and examined at bedside. Vital signs reviewed and stable. General: Nontoxic, no distress, appears at stated age, morbidly obese Derm: Warm, dry Head: Atraumatic, normocephalic, symmetric Eyes: EOMI, no lid lag, anicteric sclera Mouth: No lip lesion, mucus membranes moist Cardiovascular: S1S2 reg, no murmur Lungs: CTA bilateral, no rhonchi, no rales, no accessory muscle use Abdominal: Soft, nontender to palpation, no guarding, no appreciable organomegaly Ext: No gross muscle atrophy, no edema, no contractures Neuro: CN II-XI grossly intact, no focal neuro deficits Psych: Alert, oriented, appropriate affect A total of 33 minutes of time were spent preparing this complex discharge summary. Patient was discharged on 04/03/2023 at 1522. Patient Condition at Discharge: Stable Plan - Discharge Summary Discharge Rx Participant: No New Discharge Prescriptions: New Cefdinir [Omnicef] 300 mg PO Q12HR #14 capsule Continue Omeprazole 40 mg PO DAILY Lisinopril-Hctz 20-12.5 mg [Zestoretic 20-12.5] 1 tab PO DAILY Aspirin/Sod Bicarb/Citric Acid [[place]risti-[place] Original Tab Eff] 1 tab PO DAILY PRN PRN Reason: Indigestion Discharge Medication List Omeprazole 40 mg PO DAILY 05/27/22 [History] Aspirin/Sod Bicarb/Citric Acid [[place]i-[place] Original Tab Eff] 1 tab PO DAILY PRN 04/01/23 [History] Lisinopril-Hctz 20-12.5 mg [Zestoretic 20-12.5] 1 tab PO DAILY 04/01/23 [History] Cefdinir [Omnicef] 300 mg PO Q12HR #14 capsule 04/03/23 [Rx] Follow up Appointment(s)/Referral(s): Home Solis MD [STAFF PHYSICIAN] - 1 Week Solitario Price MD [Primary Care Provider] - 1-2 days Serg Lozano MD [STAFF PHYSICIAN] - 1 Week Patient Instructions/Handouts: Chest Pain (DC), GERD (Gastroesophageal Reflux Disease) (DC), Urinary Tract Infection in Women (DC) Activity/Diet/Wound Care/Special Instructions: Please see your PCP, cardiology and urology. Discharge Disposition: HOME SELF-CARE
== END 2023-04-03 17:35 | disposition home or self-care (01) | DRG 988 ==
LOC: EC 13:19 → 6NMEDSUR 16:32 → OBSVTOIN 04-02 12:02
PROVIDERS: ADMIT Internal Medicine; ATTEND Internal Medicine
PROC: 0DB78ZX Excision of Stomach, Pylorus, Via Natural or Artificial Opening Endoscopic, Diagnostic (ICD-10-PCS; 2023-04-02)
PROC: 0DW64CZ Revision of Extraluminal Device in Stomach, Percutaneous Endoscopic Approach (ICD-10-PCS; principal; 2023-04-02 08:45)
DX: N30.41 Irradiation cystitis with hematuria (principal); Z68.42 Body mass index [BMI] 45.0-49.9, adult; K22.2 Esophageal obstruction; I11.9 Hypertensive heart disease without heart failure; D50.9 Iron deficiency anemia, unspecified; I35.0 Nonrheumatic aortic (valve) stenosis; E66.01 Morbid (severe) obesity due to excess calories; N28.1 Cyst of kidney, acquired; K29.50 Unspecified chronic gastritis without bleeding; E78.5 Hyperlipidemia, unspecified; K22.89 Other specified disease of esophagus; N39.41 Urge incontinence; R35.0 Frequency of micturition; B96.89 Other specified bacterial agents as the cause of diseases classified elsewhere; K21.9 Gastro-esophageal reflux disease without esophagitis; Y84.2 Radiological procedure and radiotherapy as the cause of abnormal reaction of the patient, or of later complication, without mention of misadventure at the time of the procedure; Z96.651 Presence of right artificial knee joint; Z79.82 Long term (current) use of aspirin; Z85.41 Personal history of malignant neoplasm of cervix uteri; Z87.440 Personal history of urinary (tract) infections; Z92.3 Personal history of irradiation; Z98.84 Bariatric surgery status; Z88.2 Allergy status to sulfonamides; Z79.899 Other long term (current) drug therapy
CPT/HCPCS: 36415; 43239; 71046; 74240; 80048; 80053; 80061; 81001; 83735; 83880; 84484; 85025; 85027; 85610; 85730; 87077; 87086; 87186; 88305; 93005; 93306; 96365; 96366; 96375; 99285

== ENCOUNTER → 2023-04-27 | Outpatient (CLI) | payer MEDICARE, OTHER ==
[2023-04-27 19:19] LABS: ALT 30 U/L (8-44); AST 35 U/L (13-35); Chol/HDL Ratio 3.52 Ratio; LDL Cholesterol,Calculated 127.3 mg/dL (0.0-131.0)
== END | disposition home or self-care (01) ==
LOC: LABWHC1 10:17
PROVIDERS: ATTEND Internal Medicine Interventional Cardiology
DX: E78.00 Pure hypercholesterolemia, unspecified (principal)
CPT/HCPCS: 36415; 80061; 84450; 84460